=== PATIENT | male | born 1945 | race Caucasian/White ===

== ENCOUNTER 2021-12-07 08:56 | Emergency (ER) | payer MEDICARE, OTHER, SELFPAY ==
[2021-12-07 09:06] VITALS: BP 150/92; PULSE 69; RESP 16; TEMP 36.4; O2SAT 94; BMI 25.0
[2021-12-07 09:16] VITALS: BP 188/119; PULSE 69; RESP 16; O2SAT 93
--- NOTE | 2021-12-07 09:29 | ECG_ITS ---
[facility] Test Date: 2021-12-07 Pat Name: Reid Mcbride Department: Room: Gender: Male [employer]r: : 1945 Requested By: Georgi Lara Order Number: [id number] Norma MD: Rey Joseph M.D. Measurements Intervals [place] Rate: P: ND: QRS: QRSD: T: QT: QTc: Interpretive Statements SINUS RHYTHM No previous ECG available for comparison Electronically Signed On 12-09-2021 15:49:45 CDT by Rey Joseph M.D. [id number]
[2021-12-07 09:32] LABS: Glucose Point of Care 102 mg/dL (70-110)
[2021-12-07 09:40] LABS: Basophils # 0.1 10^3/uL (0.0-0.1); Basophils % 0.6 %; Eosinophils # 0.1 10^3/uL (0.0-0.8); Eosinophils % 1.4 %; Hematocrit 51.4 % (42.0-52.0); Hemoglobin 17.3 g/dL (11.7-16.6); Lymphocytes # 1.8 10^3/uL (0.8-4.8); Lymphocytes % 17.7 %; Mean Corpuscular HGB Conc 33.7 g/dL (30.0-36.0); Mean Corpuscular Hemoglobin 30.9 pg (28.0-34.0); Mean Corpuscular Volume 91.9 fl (80-94); Mean Platelet Volume 10.5 fL (7.4-10.4); Monocytes # 0.9 10^3/uL (0.2-0.9); Monocytes % 9.4 %; Neutrophils # 7.09 10^3/uL (1.8-7.7); Neutrophils % 70.6 %; Nucleated Red Blood Cells % 0 %; Platelet Count 515 10^3/cmm (130-400); Red Blood Count 5.59 10^6/uL (4.1-5.3); Red Cell Distribution Width 14.3 % (12.1-15.1)
[2021-12-07 09:52] LABS: Alanine Aminotransferase 16 U/L (0-41); Albumin Level 4.3 g/dL (3.5-5.2); Alkaline Phosphatase 109 IU/L (40-130); Anion Gap 13.4 (5-19); Aspartate Amino Transferase 22 U/L (0-40); Blood Urea Nitrogen 15 mg/dL (8-23); Calcium 9.5 mg/dL (8.5-10.5); Carbon Dioxide 25 mmol/L (22-29); Chloride 101 mmol/L (98-107); Globulin 3.2 g/dL (1.3-4.6); Glucose 108 mg/dL (65-115); Osmolality Calculated 281 mOsm/kg (285-295); Potassium 4.4 mmol/L (3.5-5.1); Sodium 135 mmol/L (136-145); Total Bilirubin 0.5 mg/dL (0.15-1.2); Total Protein 7.5 g/dL (6.6-8.7)
[2021-12-07 09:54] VITALS: BP 167/111; PULSE 69; O2SAT 93
--- NOTE | 2021-12-07 10:06 | W.ED.NEUROSD ---
HPI - Neuro Symptoms/Deficit General: Chief Complaint: Neuro Symptoms/Deficit Stated Complaint: heads jerking to the left side alot Time Seen by Provider: 12/07/21 09:02 Source: patient Mode of arrival: ambulatory Limitations: no limitations History of Present Illness: 76-year-old male presents emergency room complaining of a twitch in his neck. It began this morning. He does take aripiprazole took 20 mg this morning which is usual dose she has been on that since somewhere around 2019. He uses it for anxiety along with Ativan. He denies any chest pain denies any shortness of breath is not had any loss of consciousness. Onset (ago): hour(s) Timing confirmed by: spouse Location: other (Neck) History of same: No Severity: moderate Quality: intermittent Relieving factors: none Exacerbating factors: none Context: sudden onset Associated symptoms: Reports malaise; Deny chest pain, cough, diaphoresis, fevers/chills, headache(s), anorexia, nausea, seizures, short of breath, syncope, tingling, vomiting or weakness Treatments Prior to Arrival: none Review of Systems Const: Reports: malaise; Denies: diaphoresis ENMT: Denies: throat pain, ear or mastoid pain, nasal discharge or nasal congestion Card: Denies: chest pain or syncope Resp: Denies: dyspnea, productive cough or non-productive cough GI: Denies: nausea or vomiting : Denies: flank pain, dysuria, urinary frequency or urinary urgency Skin/Breast: Denies: rash or pruritus Neuro: Denies: headache(s) NIH stroke score NIHSS: Level Of Consciousness - 1a: 0 Level Of Consciousness Questions - 1b: Both Correct Level Of Consciousness Commands - 1c: Both Correct Best Gaze - 2: Normal Visual [place] - 3: No Visual Loss Facial Palsy - 4: Normal Motor Arm Right - 5: No Drift Motor Arm Left - 5: No Drift Motor Leg Right - 6: No Drift Motor Leg Left - 6: No Drift Limb Ataxia - 7: Absent Sensory - 8: Normal Best Language - 9: No Aphasia Dysarthia - 10: Normal Extinction And Inattention - 11: 0 Score: Total Score: 0 Physical Exam Const: COMMON NORMALS: no acute distress GENERAL APPEARANCE: cooperative and comfortable ORIENTATION/CONSCIOUSNESS: Yes awake HENMT: COMMON NORMALS: normocephalic, atraumatic and hearing grossly normal bilaterally HEAD & SCALP: normocephalic and atraumatic Neck/C-Spine: COMMON NORMALS: full ROM, no lymphadenopathy, supple and no JVD Lymph: LYMPHATIC: no lymphadenopathy noted and no lymphedema noted Resp: COMMON NORMALS: normal respiratory effort, No retractions, No use of accessory muscles and clear to auscultation bilaterally AUSCULTATION: clear to auscultation bilaterally Cardio: COMMON NORMALS: no JVD, regular rate, regular rhythm and No murmurs present (Cardio) RATE: regular rate RHYTHM: regular rhythm GI: COMMON NORMALS: Soft to palpation and No hepatosplenomegaly present AUSCULTATION: Yes normoactive bowel sounds PALPATION: Yes Soft to palpation, No Tenderness to palpation present (GI), No Guarding due to palpation present (GI) and Yes No hepatosplenomegaly present Extremity: COMMON NORMALS: normal to inspection, capillary refill normal, no clubbing, cyanosis or edema, no calf tenderness and no pedal edema Skin: COMMON NORMALS: no rashes or lesions noted GENERAL SKIN EXAM: no rashes or lesions noted Course Vital Signs: Vital signs: Vital Signs Temperature 97.6 F 12/07/21 09:06 Pulse Rate 70 12/07/21 11:46 Respiratory Rate 16 12/07/21 09:16 Blood Pressure 163/109 12/07/21 11:46 Pulse Oximetry 91 12/07/21 11:46 MDM - Neuro Symptoms/Deficit Medical Decision Making Initially patient described what sounded like a spastic torticollis that was intermittent. However he began developing symptoms again after he been here for a time and I witnessed him he looks like he is having extrapyramidal side effects. Is a diaphragmatic spasm along with neck twitching into the left. Symptoms are relatively mild but obviously very annoying. Think it is from the aripiprazole. He had some relief with initial shot of Cogentin we did need to redose him. These may persist for some time after he is off the medication. Talk to his primary care doctor and he did not think that he has been taking it all that regularly and felt comfortable just stopping it immediately. I initially discussed with the patient about tapering it. Dr. Miranda said the patient does have access to Ativan to use as needed for anxiety issues. We will give him Cogentin to use as needed and then he can supplement that with Benadryl if he has recurrent symptoms did warn the patient this may last for some time after he stops the aripiprazole. Medical Records I reviewed the patient's medical records. Lab Data I reviewed the patient's lab results. : 12/07/21 07:20 12/07/21 07:20 Laboratory Results WBC 10.0 10^3/uL (4.0-10.0) 12/07/21 07:20 RBC 5.59 10^6/uL (4.1-5.3) H 12/07/21 07:20 Hgb 17.3 g/dL (11.7-16.6) H 12/07/21 07:20 Hct 51.4 % (42.0-52.0) 12/07/21 07:20 MCV 91.9 fl (80-94) 12/07/21 07:20 MCH 30.9 pg (28.0-34.0) 12/07/21 07:20 MCHC 33.7 g/dL (30.0-36.0) 12/07/21 07:20 RDW 14.3 % (12.1-15.1) 12/07/21 07:20 Plt Count 515 10^3/cmm (130-400) H 12/07/21 07:20 MPV 10.5 fL (7.4-10.4) H 12/07/21 07:20 Neut % (Auto) 70.6 % 12/07/21 07:20 Lymph % (Auto) 17.7 % 12/07/21 07:20 [place] % (Auto) 9.4 % 12/07/21 07:20 Eos % (Auto) 1.4 % 12/07/21 07:20 Baso % (Auto) 0.6 % 12/07/21 07:20 Neut # (Auto) 7.09 10^3/uL (1.8-7.7) 12/07/21 07:20 Lymph # (Auto) 1.8 10^3/uL (0.8-4.8) 12/07/21 07:20 [place] # (Auto) 0.9 10^3/uL (0.2-0.9) 12/07/21 07:20 Eos # (Auto) 0.1 10^3/uL (0.0-0.8) 12/07/21 07:20 Baso # (Auto) 0.1 10^3/uL (0.0-0.1) 12/07/21 07:20 Nucleated RBC % (auto) 0 % 12/07/21 07:20 Nucleated RBCs # 0.0 /100WBC 12/07/21 07:20 Sodium 135 mmol/L (136-145) L 12/07/21 07:20 Potassium 4.4 mmol/L (3.5-5.1) 12/07/21 07:20 Chloride 101 mmol/L (98-107) 12/07/21 07:20 Carbon Dioxide 25 mmol/L (22-29) 12/07/21 07:20 Anion Gap 13.4 (5-19) 12/07/21 07:20 BUN 15 mg/dL (8-23) 12/07/21 07:20 Creatinine 1.0 mg/dL (0.7-1.2) 12/07/21 07:20 GFR Calculation Not Reportable 12/07/21 07:20 Glucose 108 mg/dL (65-115) 12/07/21 07:20 POC Glucose 102 mg/dL (70-110) 12/07/21 09:12 Calculated Osmolality 281 mOsm/kg (285-295) L 12/07/21 07:20 Calcium 9.5 mg/dL (8.5-10.5) 12/07/21 07:20 Total Bilirubin 0.5 mg/dL (0.15-1.2) 12/07/21 07:20 AST 22 U/L (0-40) 12/07/21 07:20 ALT 16 U/L (0-41) 12/07/21 07:20 Alkaline Phosphatase 109 IU/L (40-130) 12/07/21 07:20 Total Protein 7.5 g/dL (6.6-8.7) 12/07/21 07:20 Albumin 4.3 g/dL (3.5-5.2) 12/07/21 07:20 Globulin 3.2 g/dL (1.3-4.6) 12/07/21 07:20 Discharge Plan Discharge Patient Disposition: Home Clinical Impression: Extrapyramidal reaction Condition: Stable Prescriptions: New benztropine 2 mg tablet 1 mg PO QID PRN (Reason: extrapyramidal symptoms) Qty: 30 0RF Discontinued aripiprazole 20 mg tablet 20 mg PO DAILY 0RF No Action amitriptyline 25 mg tablet 25 - 100 mg PO BEDTIME 0RF lorazepam 0.5 mg tablet 0.5 mg PO DAILY 0RF brimonidine 0.2 % drops 1 drp ophthalmic (eye) BID 0RF Rx Instructions: instill 1 drop both eyes twice a day timolol maleate 0.5 % drops 1 drp ophthalmic (eye) BID 0RF Rx Instructions: instill 1 drop into each eye twice a day dutasteride 0.5 mg capsule 0.5 mg PO DAILY 0RF Men's Daily 0.4-600 mg-mcg Capsule 1 cap PO DAILY 0RF Discharge Orders: Discharge ED (Routine); Ordered 12/07/21 Ordered By: Georgi Arthur Referrals: Clayton Miranda MD [Family Provider] - Discharge Diet: Usual diet Discharge Activity: Resume usual activity Patient Instructions: Opioid Safety Activity Restrictions/Additional Instructions: Take Cogentin 1 every 6 hours as needed for these symptoms. You can also take Benadryl 25 mg every 4-6 hours as needed if symptoms are persisting after the Cogentin. Follow-up with Dr. Miranda on Friday Coding Level of Care Code ED Rn Acute Care for Michaela Alfredo
[2021-12-07] MEDS: benztropine 1 mg/mL SDV 2 mL IM ×2 (10:17→12:15)
[2021-12-07 10:32] VITALS: BP 199/116; PULSE 66; O2SAT 93
[2021-12-07 11:46] VITALS: BP 163/109; PULSE 70; O2SAT 91
[2021-12-07] MEDS: diphenhydrAMINE 25 mg Capsule PO (12:15)
[2021-12-07 12:20] VITALS: BP 184/117; PULSE 66; RESP 18; O2SAT 93
== END 2021-12-07 12:20 | disposition home or self-care (01) ==
PROVIDERS: Emergency Provider Family Medicine; Family Provider Family Medicine
DX: G25.9 Extrapyramidal and movement disorder, unspecified (principal)
CPT/HCPCS: 36416; 80053; 82962; 85025; 93005; 96372; 99283; J0515

== ENCOUNTER 2022-01-21 11:17 | Emergency (ER) | payer MEDICARE, OTHER, SELFPAY ==
[2022-01-21 11:19] VITALS: BP 147/101; PULSE 82; RESP 18; TEMP 36.2; O2SAT 96; BMI 25.0
--- NOTE | 2022-01-21 11:21 | CT_ITS ---
WS: [id number] CT HEAD NONCONTRAST HISTORY: stroke like symptoms TECHNIQUE: Contiguous axial imaging performed through the brain in 2.5 mm imaging. Bone and soft tiss ue windows. Sagittal and coronal reformats reviewed. All CT scans at [facility] use at least one of these dose optimization techniques: automated exposure control; mA and/or kV adjustment per pa tient size (includes targeted exams where dose is matched to clinical indication); or iterative recon struction. DLP: 1346.64 mGy.cm COMPARISON: 07/25/2011 No acute intracranial hemorrhage, midline shift or mass effect. Mild atrophy and chronic microvascular ischemic disease. Lacunar infarct in the LEFT lateral derick. Mild bilateral cerebellar atrophy. Ventricles: Normal size with no hydrocephalus. No inferior displacement of cerebellar tonsils. Again noted is a expansile bone lesion at the LEFT sk ull base with splaying of the lateral pterygoid plates. 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 Previously described in 2011 with no progression. Paranasal sinuses: As visualized are clear. Mastoid air cells: Well pneumatized. Calvarium and scalp: No calvarial fracture. CT/CT head wo con* [id number] IMPRESSION: 1. No acute intracranial edema or hemorrhage. 2. Cerebral and cerebellar atrophy with chronic microvascular ischemic changes . 3. Prior lacunar infarct lateral LEFT derick.
--- NOTE | 2022-01-21 11:40 | W.ED.NEUROSD ---
HPI - Neuro Symptoms/Deficit General: Chief Complaint: Neuro Symptoms/Deficit Stated Complaint: stoke symptoms Time Seen by Provider: 01/21/22 11:40 History of Present Illness: Mr. Mcbride is a 77-year-old gentleman who presents to the emergency department due to concern over strokelike symptoms. Symptom onset for current symptoms was he 01/20 at approximately 1800 when the patient was eating dinner. He reported numbness in his left upper extremity and weakness. He had difficulty with coordinated activity. He subsequently had mild waxing and waning of symptoms however overall they have progressed and now has weakness and numbness in the leg as well as well as left-sided facial droop. Over the past few months he has had increasing falls and gait disturbance however nothing this severe. Denies other specific changes in health. Intensity of symptoms is moderate to severe. Course has been worsening. No other specific changes in health, exacerbating, or alleviating factors identified. The patient does not have baseline medical conditions with stroke risk factors. Additionally he has been titrated off of his risperidone and has not taken it for approximately 2 weeks. Onset (ago): hour(s) Time: 18:00 Last Observed Normal: 18:00 Timing confirmed by: family member Location: left face, left arm and left leg History of same: No Severity: severe Quality: weak and numb Relieving factors: none Exacerbating factors: none On Anticoagulants: No Associated symptoms: Reports no associated symptoms Review of Systems General: Reports: 10 or more systems reviewed and unremarkable except in HPI and below Physical Exam Const: COMMON NORMALS: alert GENERAL APPEARANCE: cooperative and well developed HENMT: COMMON NORMALS: normocephalic and atraumatic HEAD & SCALP: normocephalic and atraumatic Eye: COMMON NORMALS: conjunctivae normal CONJUNCTIVA: Yes conjunctivae normal SCLERA: sclerae normal Neck/C-Spine: COMMON NORMALS: supple GENERAL: Yes trachea midline Resp: COMMON NORMALS: normal respiratory effort EFFORT & INSPECTION: Yes able to speak in complete sentences Cardio: COMMON NORMALS: regular rate and regular rhythm RATE: regular rate RHYTHM: regular rhythm GI: COMMON NORMALS: Soft to palpation PALPATION: Yes Soft to palpation and No Tenderness to palpation present (GI) PERCUSSION: normal to percussion Extremity: GENERAL: Yes normal exam except as noted and No edema Neuro: SENSORIUM/ORIENTATION: Yes alert and No Orientation impaired OTHER: Left-sided facial droop upper and lower?mild Left upper and lower extremity effort against gravity however unable to maintain sensory changes left Extinction left Questionable inferior quadrant visual disturbance Waxing and waning mild impairment in mental status Course ED course: - Patient was seen and evaluated by me at bedside - Patient placed on cardiac monitors, IV access obtained - Initial evaluation notable for exam as above, significant neurologic deficits with NIHSS of 8 - Labs and xrays personally interpreted by me. EKG reviewed and shows sinus rhythm with nonspecific ST segment abnormalities. No STEMI. - Labs notable for leukocytosis and hemoconcentration. Metabolic panel without acute derangement to explain symptoms. Urinalysis not concerning for urinary tract infection. Patient does take known lorazepam and urine drug screen positive for benzodiazepines - Imaging notable for no lobar consolidation or pneumothorax on chest x-ray. No acute intracranial hemorrhage identified on CT head. CTA positive for high-grade stenosis with large amount of noncalcified plaque suspected to be embolic thrombus versus dissection identified on CT scan. - Upon serial reexamination after treatment the patient was similar - Based on patient history, evaluation, and testing as interpreted the most likely cause of the patient's condition is ischemic stroke with LVO - Discussed with Dr Streeter of the neurology service at [facility] in [facility] and subsequently Dr. Cruz who accepted the patient as a ED to ED transfer. - The results of ED evaluation were discussed with the patient and his family including plan for transfer emergently due to requirement for level of care not available if discharged to prevent significant worsening/deterioration. - Due to time critical nature of diagnosis including pending intervention patient requires air transport for fastest means available. - Left with flight crew in similar condition. Note: Click bubbles or prepopulated segundo in note writing are used for assistance with data collection and billing and are inherently more limited than narrative and other text portions of this note. Please use narrative for additional clinical history and defer to narrative/free test for any case of contradictory information. If information appears in only free text or click bubble it should be considered present or absent as reported. Please contact note insurance underwriter for clarifications of clinical information or contradictory information. MDM is a brief summary, contradictory or erroneous seeming information should be clarified and full note should be reviewed. Vital Signs: Vital signs: Vital Signs Temperature 97.1 F L 01/21/22 11:19 Pulse Rate 87 01/21/22 15:59 Respiratory Rate 16 01/21/22 15:59 Blood Pressure 176/103 01/21/22 15:59 Pulse Oximetry 94 01/21/22 15:59 MDM - Neuro Symptoms/Deficit Medical Decision Making 77-year-old gentleman without significant past medical history presenting strokelike symptoms starting yesterday evening. Unfortunately while outside tPA window. NIHSS 8. Patient found to have suspected embolic stroke in the right intracranial ICA which correlates with left-sided symptoms. Transferred emergently for possible embolectomy to [facility] in [facility]. Medical Records I reviewed the patient's medical records. Lab Data I reviewed the patient's lab results. : 01/21/22 11:43 01/21/22 11:[address] 01/21/22 11:21 IMPRESSION: 1. No acute intracranial edema or hemorrhage. 2. Cerebral and cerebellar atrophy with chronic microvascular ischemic changes. 3. Prior lacunar infarct lateral LEFT derick. Chest X-Ray 01/21/22 11:47 Impression: Atherosclerosis. Head/Neck CTA 01/21/22 11:47 IMPRESSION: 1. 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 High-grade stenosis was a large amount of noncalcified plaque. Embolic thrombus versus dissection within the differential. 2. There is an additional high-grade stenosis involving the LEFT intracranial ICA at the level of the carotid canal. Stenosis greater than 80%. 3. No aneurysm. 4. Moderate calcified plaque intracranial carotid arteries to the cavernous sinuses. Notified Ra Anthony MD at 01/21/2022 12:51 PM. Laboratory Results WBC 14.6 10^3/uL (4.0-10.0) H 01/21/22 11:43 RBC 5.68 10^6/uL (4.1-5.3) H 01/21/22 11:43 Hgb 17.1 g/dL (11.7-16.6) H 01/21/22 11:43 Hct 50.1 % (42.0-52.0) 01/21/22 11:43 MCV 88.2 fl (80-94) 01/21/22 11:43 MCH 30.1 pg (28.0-34.0) 01/21/22 11:43 MCHC 34.1 g/dL (30.0-36.0) 01/21/22 11:43 RDW 14.9 % (12.1-15.1) 01/21/22 11:43 Plt Count 535 10^3/cmm (130-400) H 01/21/22 11:43 MPV 10.6 fL (7.4-10.4) H 01/21/22 11:43 Neut % (Auto) 76.1 % 01/21/22 11:43 Lymph % (Auto) 13.0 % 01/21/22 11:43 [place] % (Auto) 9.7 % 01/21/22 11:43 Eos % (Auto) 0.4 % 01/21/22 11:43 Baso % (Auto) 0.4 % 01/21/22 11:43 Neut # (Auto) 11.11 10^3/uL (1.8-7.7) H 01/21/22 11:43 Lymph # (Auto) 1.9 10^3/uL (0.8-4.8) 01/21/22 11:43 [place] # (Auto) 1.4 10^3/uL (0.2-0.9) H 01/21/22 11:43 Eos # (Auto) 0.1 10^3/uL (0.0-0.8) 01/21/22 11:43 Baso # (Auto) 0.1 10^3/uL (0.0-0.1) 01/21/22 11:43 Nucleated RBC % (auto) 0 % 01/21/22 11:43 Nucleated RBCs # 0.0 /100WBC 01/21/22 11:43 PT 14.70 SECONDS (12.1-14.9) 01/21/22 11:43 INR 1.12 (0.8-1.2) 01/21/22 11:43 APTT 31.2 SECONDS (23.9-36.7) 01/21/22 11:43 Sodium 139 mmol/L (136-145) 01/21/22 11:43 Potassium 4.3 mmol/L (3.5-5.1) 01/21/22 11:43 Chloride 104 mmol/L (98-107) 01/21/22 11:43 Carbon Dioxide 22 mmol/L (22-29) 01/21/22 11:43 Anion Gap 17.3 (5-19) 01/21/22 11:43 BUN 15 mg/dL (8-23) 01/21/22 11:43 Creatinine 1.2 mg/dL (0.7-1.2) 01/21/22 11:43 GFR Calculation Not Reportable 01/21/22 11:43 Glucose 90 mg/dL (65-115) 01/21/22 11:43 Calculated Osmolality 288 mOsm/kg (285-295) 01/21/22 11:43 Calcium 8.8 mg/dL (8.5-10.5) 01/21/22 11:43 Total Bilirubin 0.5 mg/dL (0.15-1.2) 01/21/22 11:43 AST 24 U/L (0-40) 01/21/22 11:43 ALT 17 U/L (0-41) 01/21/22 11:43 Alkaline Phosphatase 97 IU/L (40-130) 01/21/22 11:43 Troponin T Baseline 15 ng/L (0-15) 01/21/22 11:43 Total Protein 7.2 g/dL (6.6-8.7) 01/21/22 11:43 Albumin 4.2 g/dL (3.5-5.2) 01/21/22 11:43 Globulin 3.0 g/dL (1.3-4.6) 01/21/22 11:43 Urine Color Straw (Yellow) 01/21/22 12:44 Urine Appearance Clear (CLEAR) 01/21/22 12:44 Urine pH 7 (5-7) 01/21/22 12:44 Ur Specific [place] 1.000 (1.005-1.030) L 01/21/22 12:44 Urine Protein Neg (Negative) 01/21/22 12:44 Urine Glucose (UA) Norm (Normal) 01/21/22 12:44 Urine Ketones Negative (Negative) 01/21/22 12:44 Urine Blood Neg (Negative) 01/21/22 12:44 Urine Nitrate Negative (Negative) 01/21/22 12:44 Urine Bilirubin Neg (Negative) 01/21/22 12:44 Urine Urobilinogen Norm mg/dL (Negative) 01/21/22 12:44 Ur Leukocyte Esterase Negative (Negative) 01/21/22 12:44 Urine Opiates Screen Negative ng/mL (Negative) 01/21/22 12:44 Ur Barbiturates Screen Negative ng/mL (Negative) 01/21/22 12:44 Ur Phencyclidine Scrn Negative ng/mL (Negative) 01/21/22 12:44 Ur Amphetamines Screen Negative ng/mL (Negative) 01/21/22 12:44 U Benzodiazepines Scrn Positive ng/mL (Negative) H 01/21/22 12:44 Urine Cocaine Screen Negative ng/mL (Negative) 01/21/22 12:44 U Marijuana (THC) Screen Negative ng/mL (Negative) 01/21/22 12:44 Critical Care Time Critical Care Time: Critical Care Time: Yes Total Critical Care Time: 45 Attestation: Due to a high probability of clinically significant, possibly life threatening deterioration, the patient required my highest level of attention and preparedness to intervene emergently and I personally spent this critical care time directly and personally managing the patient. This critical care time included obtaining a history; examining the patient; pulse oximetry; ordering and review of laboratory and imaging studies; arranging urgent treatment with development of a management plan; evaluation of patient's response to treatment; frequent reassessment; and, discussions with other providers as applicable. It was exclusive of separately billable procedures. Primary system involved is neurovascular Discharge Plan Discharge Patient Disposition: Transfer to ED Clinical Impression: Cerebrovascular accident Condition: Stable Prescriptions: No Action lorazepam 0.5 mg tablet 0.5 mg PO DAILY 0RF brimonidine 0.2 % drops 1 drp ophthalmic (eye) BID 0RF Rx Instructions: instill 1 drop both eyes twice a day timolol maleate 0.5 % drops 1 drp ophthalmic (eye) BID 0RF Rx Instructions: instill 1 drop into each eye twice a day Men's Daily 0.4-600 mg-mcg Capsule 1 cap PO DAILY 0RF risperidone 0.5 mg tablet 0.5 mg PO DAILY 0RF Referrals: Clayton Miranda MD [Family Provider] - Coding Level of Care Code ED Title Manager for Chg Fwd Exam Comprehensive
--- NOTE | 2022-01-21 11:47 | XR_ITS ---
WS: [id number] Portable AP upright chest, 01/21/2022 Clinical Data: stroke like symptoms Comparison: PA and lateral chest, 02/26/2019. Findings: No nodules, masses or effusions are seen. The heart is normal. The pulmonary vascularity is not increased. No pneumonia or pneumothorax is seen. The aortic arch and descending thoracic aorta s how calcification and tortuosity. 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 Monitor l stephanie are on the chest wall. XR/XR chest 1V portable [id number] Impression: Atherosclerosis.
--- NOTE | 2022-01-21 11:47 | CT_ITS ---
WS: [id number] CT ANGIOGRAM CEREBRAL AND CAROTID ARTERIES HISTORY: stroke symptoms, L sided numb/weak TECHNIQUE: CT angiogram is performed of the carotid and cerebral arteries. During arterial injection imaging is obtained from the skull vertex to the aortic arch in 1.25 mm imaging. Coronal and sagittal reformats are submitted. Additional multi planar reformats of the carotid and cerebral arteries are submitted, MIP imaging also reviewed. NASCET criteria utilized. [facility] CT [facility] at [facility] us e at least one of these dose optimization techniques: automated exposure control; mA and/or kV adjust ment per patient size (includes targeted exams where dose is matched to clinical indication); or iter ative reconstruction. CONTRAST: Omnipaque 350; 95 mL IV. DLP: 2389.55 mGy.cm COMPARISON: Noncontrast CT head 01/21/2022. Patient was unable to remain still for this examination. Carotid Angiogram: Right carotid: Common carotid artery: Origin of the RIGHT common carotid artery is poorly visualized due to motion b ut there is no high-grade stenosis evident. No significant amount of thrombus or plaque. Internal carotid artery: In the cervical portion of the RIGHT ICA no stenosis is identified or signif icant plaque. There is a very tiny amount of calcified plaque. External carotid artery: Patent. Left carotid: Common carotid artery: Arises from the base of the innominate. Motion artifact. Internal carotid artery: No plaque or stenosis. External carotid artery: Patent. Right vertebral artery: Unremarkable. Left vertebral artery: Mildly dominant. Patent. Subclavian arteries: No stenosis or significant abnormality. Upper thorax: Normal. Thyroid gland: Normal. Osseous structures: Mild degenerative changes in the cervical spine. CEREBRAL ANGIOGRAM: Intracranial vertebral arteries: Tortuous vertebral arteries but they are intact. Basilar artery: No significant stenosis or occlusion. No aneurysm. Intracranial Internal carotid arteries: Abnormal intracranial RIGHT carotid artery. Beginning at the level of the C1 vertebral body there is dilatation of the carotid artery measuring up to 1.0 cm. Ther e is a small amount of enhancement within the lumen. Contrast enhancement is along the posterior lume n of the artery. Extending over a length of approximately 2.5 cm is a focal area of thrombus with pos sible dissection nearly obstructing the artery. The surface of the enhancing carotid lumen is irregul ar. This is a very high-grade stenosis of greater than 90%. Involves both the petrous and proximal ca vernous portion of the ICA. Distal intracranial carotid artery becomes becomes normal. Mild plaque is calcified through the cavernous segment. There is additional soft plaque and high-grade stenosis involving the LEFT intracranial ICA. There is a short segment area of high-grade stenosis at the carotid canal. Middle cerebral arteries: No significant stenosis or thrombus. Anterior cerebral arteries and ACOM: Dominant LEFT A1 segment. No aneurysm or stenosis. Posterior cerebral arteries and PCOM's: Normal. No significant opacification of the LEFT transverse sinus is probably due to small caliber sinus whic h is a normal variant. The jugular canal is very small on the LEFT. Mastoid air cells: Normal. Paranasal sinuses: Normal. Calvarium: Again noted is expansile lesion at the LEFT skull base which is similar to previous the de scribed and stable. CT/CT angio headneck* [id number] IMPRESSION: 1. 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 High-grade stenosis was a large amount of noncalcified plaque. Embolic thrombus versus di ssection within the differential. 2. There is an additional high-grade stenosis involving the LEFT intracranial ICA at the level of the carotid canal. Stenosis greater than 80%. 3. No aneurysm. 4. Moderate calcified plaque intracranial carotid arteries to the cavernous si nuses. Notified Ra Anthony MD at 01/21/2022 12:51 PM.
--- NOTE | 2022-01-21 11:48 | ECG_ITS ---
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 Measurements Intervals [place] Rate: 80 P: 9 OR: 172 QRS: 9 QRSD: 87 T: 17 QT: 374 QTc: 432 Interpretive Statements SINUS RHYTHM Compared to ECG 12/07/2021 09:24:56 No significant changes Electronically Signed On 01-21-2022 22:05:17 CDT by Rey Joseph M.D. [id number]
[2022-01-21 12:01] LABS: Basophils # 0.1 10^3/uL (0.0-0.1); Basophils % 0.4 %; Eosinophils # 0.1 10^3/uL (0.0-0.8); Eosinophils % 0.4 %; Hematocrit 50.1 % (42.0-52.0); Hemoglobin 17.1 g/dL (11.7-16.6); Lymphocytes # 1.9 10^3/uL (0.8-4.8); Mean Corpuscular HGB Conc 34.1 g/dL (30.0-36.0); Mean Corpuscular Hemoglobin 30.1 pg (28.0-34.0); Mean Corpuscular Volume 88.2 fl (80-94); Mean Platelet Volume 10.6 fL (7.4-10.4); Monocytes # 1.4 10^3/uL (0.2-0.9); Monocytes % 9.7 %; Neutrophils # 11.11 10^3/uL (1.8-7.7); Neutrophils % 76.1 %; Nucleated Red Blood Cells % 0 %; Platelet Count 535 10^3/cmm (130-400); Red Blood Count 5.68 10^6/uL (4.1-5.3); Red Cell Distribution Width 14.9 % (12.1-15.1); White Blood Count 14.6 10^3/uL (4.0-10.0)
[2022-01-21 12:11] LABS: INR 1.12 (0.8-1.2); Partial Thromboplastin Time 31.2 SECONDS (23.9-36.7)
[2022-01-21 12:13] LABS: Troponin(5th) Baseline 15 ng/L (0-15)
[2022-01-21 12:16] LABS: Alanine Aminotransferase 17 U/L (0-41); Albumin Level 4.2 g/dL (3.5-5.2); Alkaline Phosphatase 97 IU/L (40-130); Blood Urea Nitrogen 15 mg/dL (8-23); Calcium 8.8 mg/dL (8.5-10.5); Carbon Dioxide 22 mmol/L (22-29); Chloride 104 mmol/L (98-107); Glucose 90 mg/dL (65-115); Osmolality Calculated 288 mOsm/kg (285-295); Sodium 139 mmol/L (136-145); Total Bilirubin 0.5 mg/dL (0.15-1.2); Total Protein 7.2 g/dL (6.6-8.7)
[2022-01-21] MEDS: iohexol 350 mg/mL 100 mL Btl IV (12:29)
[2022-01-21 12:59] LABS: Anion Gap 17.3 (5-19); Potassium 4.3 mmol/L (3.5-5.1)
[2022-01-21 13:00] LABS: Aspartate Amino Transferase 24 U/L (0-40)
[2022-01-21 13:30] VITALS: BP 176/103; PULSE 87; RESP 16; O2SAT 94
[2022-01-21 13:36] LABS: Add Urine Microscopic? NO; Charge for UA Resulting for Rev
[2022-01-21 13:42] LABS: Bilirubin Urine Neg (Negative); Blood Urine Neg (Negative); Glucose Urine UA Norm (Normal); Ketones Urine Negative (Negative); Leukocyte Esterase Urine Negative (Negative); Nitrate Urine Negative (Negative); Protein Urine Neg (Negative); Urine Appearance Clear (CLEAR); Urine Color Straw (Yellow); Urobilinogen Urine Norm (Negative); pH Urine 7 (5-7)
[2022-01-21 13:51] LABS: Amphetamines Screen Urine Negative (Negative); Barbiturates Screen Urine Negative (Negative); Benzodiazepines Screen Urine Positive (Negative); Cocaine Screen Urine Negative (Negative); Opiate Screen Urine Negative (Negative); PCP Screen Urine Negative (Negative); THC Screen Urine Negative (Negative)
[2022-01-21 15:59] VITALS: BP 176/103; PULSE 87; RESP 16; O2SAT 94
== END 2022-01-21 13:01 ==
PROVIDERS: Emergency Provider Emergency Medicine; Family Provider Family Medicine
DX: I63.411 Cerebral infarction due to embolism of right middle cerebral artery (principal); R29.810 Facial weakness; R29.708 NIHSS score 8
CPT/HCPCS: 51702; 70450; 70496; 70498; 71045; 80053; 80306; 81003; 84484; 85025; 85610; 85730; 93005; 99283; Q9967

== ENCOUNTER 2022-02-03 22:53 | Emergency (ER) | payer MEDICARE, OTHER, SELFPAY ==
[2022-02-03 22:57] VITALS: BP 175/107; PULSE 69; RESP 18; TEMP 36.9; O2SAT 92; BMI 25.0
--- NOTE | 2022-02-03 22:57 | ED_ITS ---
HPI - Fall General: Chief Complaint: Extremity Injury, Upper Stated Complaint: FALL Time Seen by Provider: 02/03/22 22:57 History of Present Illness: 77-year-old male patient comes in today for evaluation after a fall. Patient approximately 2 weeks ago had a stroke and has some left-sided weakness. Tonight patient was in the bathroom and had got up from the toilet states he felt like he lost his balance and then fell to the ground. Patient injured his left forearm. Patient denies any other significant injury. Patient did report that he hit his head but did not lose consciousness. Patient recalls event without any difficulty. MD complaint: fall Onset (ago): minute(s) Fall from: standing Fall witnessed: no Place fall occurred: home Loss of consciousness: None Prolonged down time: no Symptoms prior to fall: none Context: tripped/slipped Location of injury - extremities: Left: forearm Severity: mild Associated symptoms-after fall: Denies chest pain Review of Systems General: Reports: 10 or more systems reviewed and unremarkable except in HPI and below Const: Denies: fever(s) Eyes: Denies: change in vision Card: Denies: chest pain Resp: Denies: dyspnea : Denies: difficulty urinating Musc: Reports: extremity pain Skin/Breast: Denies: rash or new lesions Neuro: Reports: weakness in extremities Physical Exam Const: COMMON NORMALS: alert HENMT: COMMON NORMALS: atraumatic HEAD & SCALP: atraumatic Eye: COMMON NORMALS: Equal, round and reactive pupils present and EOMs intact bilaterally PUPIL: Yes Equal, round and reactive pupils present Neck/C-Spine: COMMON NORMALS: full ROM Chest: COMMONS NORMALS: normal palpation of entire chest wall Resp: COMMON NORMALS: normal respiratory effort and clear to auscultation bilaterally AUSCULTATION: clear to auscultation bilaterally Cardio: COMMON NORMALS: regular rate and regular rhythm RATE: regular rate RHYTHM: regular rhythm GI: COMMON NORMALS: Soft to palpation and non-tender PALPATION: Yes Soft to palpation Back/Pelvis: COMMON NORMALS: thoracic and lumbar spine normal to inspection Extremity: LEFT UPPER EXTREMITY: Yes lower arm (Distal tenderness, swelling) Left lower arm: Yes inspection, Yes palpation and Yes neurovascular exam Neuro: SENSORIUM/ORIENTATION: Yes alert Skin: COMMON NORMALS: no rashes or lesions noted GENERAL SKIN EXAM: no rashes or lesions noted Course Vital Signs: Vital signs: Vital Signs Temperature 98.4 F 02/03/22 22:57 Pulse Rate 66 02/03/22 23:40 Respiratory Rate 16 02/03/22 23:40 Blood Pressure 159/91 02/03/22 23:40 Pulse Oximetry 92 02/03/22 23:40 MDM - Fall Medical Decision Making 77-year-old male patient lost his balance and fell on the floor upon getting up from the toilet. Patient denies any nausea vomiting or dizziness. Patient does have a history of a recent CVA which caused some weakness on the left side. Pat ient responded appropriately to questions. There was concern for some deformity in the left forearm. On exam there is no obvious deformity but there is a contusion. Pulses are intact. Differential diagnosis includes but not limited to fracture, intracranial bleeding, electrolyte imbalance. Laboratory values were unremarkable except patient does have some elevation in his platelets at 757, CMP was unremarkable. CT of the head was unchanged from prior exams. Forearm x-ray was negative for any fractures. Elastic bandage to the forearm for swelling and contusion. Patient was given 15 mg of Toradol IV for his pain. Patient was recommended to follow-up with primary care for further instruction. Son was in the room and reported understanding. Lab Data : 02/03/22 23:11 02/03/22 23:11 Radiology Impressions Forearm X-Ray 02/03/22 23: IMPRESSION: No acute findings. Head CT 02/03/22 23:01 IMPRESSION: 1. Negative for intracranial hemorrhage or mass effect. 2. Left skull base low-density expansile lesion incompletely visualized, has been previously described, a MRI could further evaluate this nonemergently as clinically indicated. Laboratory Results WBC 13.9 10^3/uL (4.0-10.0) H 02/03/22 23:11 RBC 4.78 10^6/uL (4.1-5.3) 02/03/22 23:11 Hgb 14.5 g/dL (11.7-16.6) 02/03/22 23:11 Hct 43.7 % (42.0-52.0) 02/03/22 23:11 MCV 91.4 fl (80-94) 02/03/22 23:11 MCH 30.3 pg (28.0-34.0) 02/03/22 23:11 MCHC 33.2 g/dL (30.0-36.0) 02/03/22 23:11 RDW 15.5 % (12.1-15.1) H 02/03/22 23:11 Plt Count 757 10^3/cmm (130-400) H 02/03/22 23:11 MPV 10.3 fL (7.4-10.4) 02/03/22 23:11 Neut % (Auto) 71.3 % 02/03/22 23:11 Lymph % (Auto) 15.3 % 02/03/22 23:11 Nicholas % (Auto) 9.1 % 02/03/22 23:11 Eos % (Auto) 2.9 % 02/03/22 23:11 Baso % (Auto) 0.4 % 02/03/22 23:11 Neut # (Auto) 9.94 10^3/uL (1.8-7.7) H 02/03/22 23:11 Lymph # (Auto) 2.1 10^3/uL (0.8-4.8) 02/03/22 23:11 Nicholas # (Auto) 1.3 10^3/uL (0.2-0.9) H 02/03/22 23:11 Eos # (Auto) 0.4 10^3/uL (0.0-0.8) 02/03/22 23:11 Baso # (Auto) 0.1 10^3/uL (0.0-0.1) 02/03/22 23:11 Nucleated RBC % (auto) 0 % 02/03/22 23:11 Nucleated RBCs # 0.0 /100WBC 02/03/22 23:11 Sodium 139 mmol/L (136-145) 02/03/22 23:11 Potassium 3.8 mmol/L (3.5-5.1) 02/03/22 23:11 Chloride 104 mmol/L (98-107) 02/03/22 23:11 Carbon Dioxide 24 mmol/L (22-29) 02/03/22 23:11 Anion Gap 14.8 (5-19) 02/03/22 23:11 BUN 15 mg/dL (8-23) 02/03/22 23:11 Creatinine 0.8 mg/dL (0.7-1.2) 02/03/22 23:11 GFR Calculation Not Reportable 02/03/22 23:11 Glucose 104 mg/dL (65-115) 02/03/22 23:11 Calculated Osmolality 289 mOsm/kg (285-295) 02/03/22 23:11 Calcium 8.9 mg/dL (8.5-10.5) 02/03/22 23:11 Total Bilirubin 0.2 mg/dL (0.15-1.2) 02/03/22 23:11 AST 20 U/L (0-40) 02/03/22 23:11 ALT 17 U/L (0-41) 02/03/22 23:11 Alkaline Phosphatase 114 IU/L (40-130) 02/03/22 23:11 Total Protein 6.8 g/dL (6.6-8.7) 02/03/22 23:11 Albumin 3.4 g/dL (3.5-5.2) L 02/03/22 23:11 Globulin 3.4 g/dL (1.3-4.6) 02/03/22 23:11 Discharge Plan Discharge Patient Disposition: Home Clinical Impression: Contusion, forearm Fall Qualifiers: Encounter type: initial encounter Qualified Code(s): W19.XXXA - Unspecified fall, initial encounter Head injury Qualifiers: Encounter type: initial encounter Qualified Code(s): S09.90XA - Unspecified injury of head, initial encounter Condition: Stable Prescriptions: No Action lorazepam 0.5 mg tablet 0.5 mg PO DAILY 0RF brimonidine 0.2 % drops 1 drp ophthalmic (eye) BID 0RF Rx Instructions: instill 1 drop both eyes twice a day timolol maleate 0.5 % drops 1 drp ophthalmic (eye) BID 0RF Rx Instructions: instill 1 drop into each eye twice a day Men's Daily 0.4-600 mg-mcg Capsule 1 cap PO DAILY 0RF risperidone 0.5 mg tablet 0.5 mg PO DAILY 0RF Discharge Orders: Discharge ED (Routine); Ordered 02/04/22 Ordered By: Alli Gregory Referrals: Clayton Miranda MD [Staff Physician] - Discharge Diet: Usual diet Discharge Activity: Increase activity as tolerated Patient Instructions: Contusion in Adults (ED) Activity Restrictions/Additional Instructions: Activity as tolerated. Gentle stretching and range of motion exercises. Use ice or heat to the areas for pain control. Use acetaminophen as needed for pain. Follow-up with primary care as needed. Return to ER for new concerns. Coding Level of Care Code ED Chemist Steroids for Michaela Alfredo Exam Comprehensive
--- NOTE | 2022-02-03 23:01 | CTR_ITS ---
PROCEDURE INFORMATION: Exam: CT Head Without Contrast Exam date and time: 02/03/2022 11:31 PM Age: 77 years old Clinical indication: Injury or trauma; Fall; Blunt trauma (contusions or hematomas); Without loss of consciousness; Patient HX: Stroke 2 weeks ago fell tonight in bathroom hitting L side of head denies loc TECHNIQUE: Imaging protocol: Computed tomography of the head without contrast. Radiation optimization: All CT scans at this facility use at least one of these dose optimization techniques: automated exposure control; mA and/or kV adjustment per patient size (includes targeted exams where dose is matched to clinical indication); or iterative reconstruction. COMPARISON: No relevant prior studies available. RADIATION DOSE METRICS: Total DLP (mGy-cm): 1015.73 FINDINGS: Brain: Normal. No hemorrhage. Unremarkable white matter. No mass effect. Cerebral ventricles: No ventriculomegaly. Paranasal sinuses: Visualized sinuses are unremarkable. No fluid levels. Mastoid air cells: Visualized mastoid air cells are well aerated. Bones/joints: Left skull base low-density expansile lesion incompletely visualized, has been previously described, a MRI could further evaluate this nonemergently as clinically indicated. Soft tissues: Unremarkable. CT/CT head wo con* [id number] IMPRESSION: 1. Negative for intracranial hemorrhage or mass effect. 2. Left skull base low-density expansile lesion incompletely visualized, has been previously described, a MRI could further evaluate this nonemergently as clinically indicated.
--- NOTE | 2022-02-03 23:01 | XRR_ITS ---
PROCEDURE INFORMATION: Exam: XR Left Forearm Exam date and time: 02/03/2022 11:21 PM Age: 77 years old Clinical indication: Injury or trauma; Fall; Blunt trauma (contusions or hematomas); Arm, lower; Left; Additional info: Fall injury TECHNIQUE: Imaging protocol: XR Left forearm. Views: 2 views. COMPARISON: No relevant prior studies available. FINDINGS: Bones/joints: Normal. Soft tissues: Normal. XR/XR forearm LT 2V [id number] IMPRESSION: No acute findings.
[2022-02-03 23:26] LABS: Basophils # 0.1 10^3/uL (0.0-0.1); Basophils % 0.4 %; Eosinophils # 0.4 10^3/uL (0.0-0.8); Eosinophils % 2.9 %; Hematocrit 43.7 % (42.0-52.0); Hemoglobin 14.5 g/dL (11.7-16.6); Lymphocytes # 2.1 10^3/uL (0.8-4.8); Lymphocytes % 15.3 %; Mean Corpuscular HGB Conc 33.2 g/dL (30.0-36.0); Mean Corpuscular Hemoglobin 30.3 pg (28.0-34.0); Mean Corpuscular Volume 91.4 fl (80-94); Mean Platelet Volume 10.3 fL (7.4-10.4); Monocytes # 1.3 10^3/uL (0.2-0.9); Monocytes % 9.1 %; Neutrophils # 9.94 10^3/uL (1.8-7.7); Neutrophils % 71.3 %; Nucleated Red Blood Cells % 0 %; Platelet Count 757 10^3/cmm (130-400); Red Blood Count 4.78 10^6/uL (4.1-5.3); Red Cell Distribution Width 15.5 % (12.1-15.1); White Blood Count 13.9 10^3/uL (4.0-10.0)
[2022-02-03] MEDS: ketorolac 30 mg/mL INJ 15 MG IVP (23:35)
[2022-02-03 23:40] VITALS: BP 159/91; PULSE 66; RESP 16; O2SAT 92
[2022-02-03 23:43] LABS: Alanine Aminotransferase 17 U/L (0-41); Albumin Level 3.4 g/dL (3.5-5.2); Alkaline Phosphatase 114 IU/L (40-130); Anion Gap 14.8 (5-19); Aspartate Amino Transferase 20 U/L (0-40); Blood Urea Nitrogen 15 mg/dL (8-23); Calcium 8.9 mg/dL (8.5-10.5); Carbon Dioxide 24 mmol/L (22-29); Chloride 104 mmol/L (98-107); Creatinine Clr Calc Pharmacy 76.3991; Globulin 3.4 g/dL (1.3-4.6); Glucose 104 mg/dL (65-115); Osmolality Calculated 289 mOsm/kg (285-295); Potassium 3.8 mmol/L (3.5-5.1); Sodium 139 mmol/L (136-145); Total Bilirubin 0.2 mg/dL (0.15-1.2); Total Protein 6.8 g/dL (6.6-8.7)
[2022-02-04 01:28] VITALS: PULSE 78; RESP 16; O2SAT 94
== END 2022-02-04 01:29 | disposition home or self-care (01) ==
PROVIDERS: Emergency Provider Nurse Practitioner Family
DX: S50.12XA Contusion of left forearm, initial encounter (principal); W18.30XA Fall on same level, unspecified, initial encounter; S09.90XA Unspecified injury of head, initial encounter
CPT/HCPCS: 70450; 73090; 80053; 85025; 96374; 99284; J1885

== ENCOUNTER 2022-02-19 08:16 | Outpatient (RCR) | payer MEDICARE, OTHER, SELFPAY | END 2022-02-26 23:59 | disposition home or self-care (01) | LOC: SPO 08:16 | PROVIDERS: Referring Provider Internal Medicine; Visit Provider Internal Medicine | DX: I69.30 Unspecified sequelae of cerebral infarction (principal); R13.12 Dysphagia, oropharyngeal phase; G20 Parkinson's disease | CPT/HCPCS: 97110; 97112; 97140; 97162; 97166 ==

== ENCOUNTER 2022-02-27 06:00 | Outpatient (RCR) | payer MEDICARE, OTHER, SELFPAY | END 2022-03-28 23:59 | disposition home or self-care (01) | LOC: SPO 06:00 | PROVIDERS: Referring Provider Internal Medicine; Visit Provider Internal Medicine | DX: I63.9 Cerebral infarction, unspecified (principal); G81.94 Hemiplegia, unspecified affecting left nondominant side; R13.10 Dysphagia, unspecified; I69.90 Unspecified sequelae of unspecified cerebrovascular disease | CPT/HCPCS: 97110; 97112; 97140 ==

== ENCOUNTER 2022-03-11 07:57 | Outpatient (CLI) | payer MEDICARE, OTHER, SELFPAY ==
--- NOTE | 2022-03-11 | XR_ITS ---
WS: [id number] CHEST 2 VIEWS HISTORY: SHORTNESS OF BREATH COMPARISON: 01/21/2022 Lungs: Hyperinflated lungs. Slight elevation of the LEFT hemidiaphragm with blunting at the LEFT cost ophrenic angle. No pneumonia. Normal vasculature. Cardiac size: Normal. Mediastinum/Aorta: Mild atherosclerosis aorta. Bones: Osteopenia. Prior LEFT femoral head replacement. Increase in thoracic kyphosis. XR/XR chest 2V* [id number] IMPRESSION: 1. Chronic emphysema. No pneumonia. 2. Very minimal blunting of the LEFT costophrenic angle is probably due to fib rosis. 3. Mild atherosclerosis aorta.
== END 2022-03-11 07:58 | disposition home or self-care (01) ==
LOC: RADOUTREAD 03-12 08:01
PROVIDERS: Visit Provider Nurse Practitioner Family
DX: R06.02 Shortness of breath (principal); J43.8 Other emphysema
CPT/HCPCS: 71046; 85378

== ENCOUNTER 2022-03-11 12:45 | Outpatient (CLI) | payer MEDICARE, OTHER, SELFPAY ==
[2022-03-11 13:17] LABS: D Dimer <= 0.27 ug/mIFEU (0-0.59)
== END 2022-03-11 12:46 | disposition home or self-care (01) ==
PROVIDERS: Visit Provider Nurse Practitioner Family
DX: R06.02 Shortness of breath (principal)
CPT/HCPCS: 85378

== ENCOUNTER 2022-03-25 11:31 | Emergency (ER) | payer MEDICARE, OTHER, SELFPAY ==
[2022-03-25 11:43] VITALS: BP 107/71; PULSE 71; RESP 18; TEMP 36.6; O2SAT 96; BMI 25.0
--- NOTE | 2022-03-25 11:47 | XR_ITS ---
WS: [id number] PORTABLE CHEST HISTORY: sob COMPARISON: 03/11/2022 Lungs are clear and well expanded. Very slight blunting of the LEFT costophrenic angle similar to the prior studies. No pneumonia. No effusion. Normal vascularity. Cardiac size: Normal. Mediastinum/Aorta: Mild atherosclerosis aorta. 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 XR/XR chest 1V portable [id number] IMPRESSION: 1. No acute cardiopulmonary disease. 2. Mildly ectatic aorta.
--- NOTE | 2022-03-25 12:02 | W.ED.GENADLT ---
Documented by User: DENNIS Daniels 03/25/22 16:08 HPI - General Adult General: Chief complaint: General Medical Stated complaint: Trouble swollowing, sob Time Seen by Provider: 03/25/22 11:47 History of Present Illness: Patient is a 77-year-old male comes to the ED with trouble swallowing. Past medical history of stroke and was seen here that back on January 21 and he has residual left side weakness. for the past week he has been having feeling that something is stuck in his throat and its a little bit painful and hard for him to swallow. He says symptoms started after his stroke but over the past week its become more of a problem and affecting him daily. He also endorses feeling like the sensation of something in his throat makes it hard for him to breathe as well. He denies having any choking. He is able to keep food and fluids down. Denies any fever, cough, chest pain, shortness of breath or emesis. Voice has changed and become a little more hoarse since onset of symptoms. Associated symptoms: Deny chest pain, dyspnea, headache(s), nausea, rash, palpitations or vomiting Review of Systems Const: Denies: fever(s), chills or fatigue Eyes: Denies: change in vision or eye discomfort ENMT: Reports: odynophagia (Mild pain and some difficulty swallowing.), hoarseness and other (Feels like there is something stuck in his throat); Denies: throat pain, nasal discharge or nasal congestion Card: Denies: chest pain, palpitations, edema, swelling of feet/ankles, dyspnea on exertion or orthopnea Resp: Denies: dyspnea, productive cough or non-productive cough GI: Denies: abdominal pain, nausea, vomiting, diarrhea, constipation or hematochezia : Denies: flank pain, difficulty urinating, dysuria or hematuria Musc: Denies: neck pain, back pain or extremity swelling Skin/Breast: Denies: rash or new lesions Neuro: Denies: headache(s), numbness in extremities or weakness in extremities PFS ED PFSH: Medical History CVA (cerebral vascular accident) Surgical History No pertinent past surgical history Physical Exam Const: COMMON NORMALS: no acute distress, patient oriented x3 and alert GENERAL APPEARANCE: cooperative and comfortable OTHER: Patient's voice does sound a little hoarse and raspy. HENMT: COMMON NORMALS: normocephalic HEAD & SCALP: normocephalic MOUTH: Normal oral and palatal mucosa present THROAT: posterior oropharynx normal and uvula midline OTHER: Patient appears to be handling his secretions well. No excessive secretions noted in mouth Neck/C-Spine: COMMON NORMALS: supple GENERAL: Yes normal visual inspection Resp: COMMON NORMALS: normal respiratory effort, No retractions, No use of accessory muscles and clear to auscultation bilaterally AUSCULTATION: clear to auscultation bilaterally Cardio: COMMON NORMALS: regular rate, regular rhythm, S1 normal heart sound present, S2 normal heart sound present, No gallops present (Cardio), No clicks present (Cardio), No murmurs present (Cardio) and Peripheral pulses 2+ throughout RATE: regular rate RHYTHM: regular rhythm HEART SOUNDS: S1 normal heart sound present and S2 normal heart sound present PERIPHERAL PULSES: Peripheral pulses 2+ throughout GI: COMMON NORMALS: Normal to inspection, nondistended, normoactive bowel sounds present, Soft to palpation, non-tender and no masses PALPATION: Yes Soft to palpation : COMMON NORMALS: Yes no CVA tenderness BLADDER/KIDNEY EXAM: Yes no CVA tenderness Back/Pelvis: COMMON NORMALS: no CVA tenderness Extremity: COMMON NORMALS: normal to inspection Neuro: COMMON NORMALS: patient oriented x3 SENSORIUM/ORIENTATION: Yes alert Skin: GENERAL SKIN EXAM: dry skin Course Vital Signs: Vital signs: Vital Signs Temperature 98.0 F 03/25/22 15:37 Pulse Rate 74 03/25/22 15:37 Respiratory Rate 16 03/25/22 15:37 Blood Pressure 112/70 03/25/22 15:37 Pulse Oximetry 99 03/25/22 15:37 [facility] - General Adult Medical Decision Making Patient is a 77-year-old male comes to the ED with trouble swallowing. Past medical history of stroke and was seen here that back on January 21 and he has residual left side weakness. for the past week he has been having feeling that something is stuck in his throat and its a little bit painful and hard for him to swallow. He says symptoms started after his stroke but over the past week its become more of a problem and affecting him daily. He is still able to keep p.o. food and fluids down and does not have any episodes of emesis. Vitals are stable. Exam of patient is benign. White blood cell count of 16.4 and creatinine of 1.3. Rest of labs are unremarkable. Chest x-ray showed no acute findings. CT of neck showed no neck mass or obstruction of the oropharynx or nasopharynx. No adenopathy noted. 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 Given patient's history and is clear CT scan he likely has dysphagia due to recent stroke. He was also diagnosed with elevated serum creatinine. He was given a liter of IV fluids here in the ED. I discussed patient's case with Dr. Arthur he agreed he is stable for discharge home. He was told to follow-up with his PCP within the next several days to get reevaluated and have his creatinine levels rechecked. Return to ED precautions given. Patient understood and agreed with plan. Lab Data I reviewed the patient's lab results. : 03/25/22 12:05 03/25/22 12:05 Radiology Impressions Chest X-Ray 03/25/22 11:47 IMPRESSION: 1. No acute cardiopulmonary disease. 2. Mildly ectatic aorta. Neck CT 03/25/22 12:11 IMPRESSION: 1. No neck mass or obstruction of the oropharynx or nasopharynx. 2. No adenopathy. 3. 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 Laboratory Results WBC 16.4 10^3/uL (4.0-10.0) H 03/25/22 12:05 RBC 5.31 10^6/uL (4.1-5.3) H 03/25/22 12:05 Hgb 16.0 g/dL (11.7-16.6) 03/25/22 12:05 Hct 45.4 % (42.0-52.0) 03/25/22 12:05 MCV 85.5 fl (80-94) 03/25/22 12:05 MCH 30.1 pg (28.0-34.0) 03/25/22 12:05 MCHC 35.2 g/dL (30.0-36.0) 03/25/22 12:05 RDW 15.6 % (12.1-15.1) H 03/25/22 12:05 Plt Count 599 10^3/cmm (130-400) H 03/25/22 12:05 MPV 10.8 fL (7.4-10.4) H 03/25/22 12:05 Neut % (Auto) 72.6 % 03/25/22 12:05 Lymph % (Auto) 15.9 % 03/25/22 12:05 [place] % (Auto) 8.4 % 03/25/22 12:05 Eos % (Auto) 1.1 % 03/25/22 12:05 Baso % (Auto) 0.4 % 03/25/22 12:05 Neut # (Auto) 11.93 10^3/uL (1.8-7.7) H 03/25/22 12:05 Lymph # (Auto) 2.6 10^3/uL (0.8-4.8) 03/25/22 12:05 [place] # (Auto) 1.4 10^3/uL (0.2-0.9) H 03/25/22 12:05 Eos # (Auto) 0.2 10^3/uL (0.0-0.8) 03/25/22 12:05 Baso # (Auto) 0.1 10^3/uL (0.0-0.1) 03/25/22 12:05 Nucleated RBC % (auto) 0 % 03/25/22 12:05 Nucleated RBCs # 0.0 /100WBC 03/25/22 12:05 Sodium 136 mmol/L (136-145) 03/25/22 12:05 Potassium 3.4 mmol/L (3.5-5.1) L 03/25/22 12:05 Chloride 101 mmol/L (98-107) 03/25/22 12:05 Carbon Dioxide 22 mmol/L (22-29) 03/25/22 12:05 Anion Gap 16.4 (5-19) 03/25/22 12:05 BUN 22 mg/dL (8-23) 03/25/22 12:05 Creatinine 1.3 mg/dL (0.7-1.2) H 03/25/22 12:05 GFR Calculation Not Reportable 03/25/22 12:05 Glucose 139 mg/dL (65-115) H 03/25/22 12:05 Calculated Osmolality 288 mOsm/kg (285-295) 03/25/22 12:05 Calcium 9.0 mg/dL (8.5-10.5) 03/25/22 12:05 Total Bilirubin 0.7 mg/dL (0.15-1.2) 03/25/22 12:05 AST 17 U/L (0-40) 03/25/22 12:05 ALT 14 U/L (0-41) 03/25/22 12:05 Alkaline Phosphatase 115 IU/L (40-130) 03/25/22 12:05 Total Protein 6.5 g/dL (6.6-8.7) L 03/25/22 12:05 Albumin 3.5 g/dL (3.5-5.2) 03/25/22 12:05 Globulin 3.0 g/dL (1.3-4.6) 03/25/22 12:05 TSH 2.66 uIU/mL (0.27-4.20) 03/25/22 12:05 Discharge Plan Discharge Patient Disposition: Home Clinical Impression: Elevated serum creatinine, Dysphagia due to recent stroke Condition: Stable Prescriptions: No Action lorazepam 0.5 mg tablet 0.5 mg PO TID 0RF brimonidine 0.2 % drops 1 drp ophthalmic (eye) BID 0RF Rx Instructions: instill 1 drop both eyes twice a day timolol maleate 0.5 % drops 1 drp ophthalmic (eye) BID 0RF Rx Instructions: instill 1 drop into each eye twice a day Men's Daily 0.4-600 mg-mcg Capsule 1 cap PO DAILY 0RF risperidone 0.5 mg tablet 0.5 mg PO DAILY 0RF atorvastatin 40 mg tablet 40 mg PO DAILY 0RF fluconazole 150 mg tablet 150 mg PO DAILY 0RF clopidogrel 75 mg tablet 75 mg PO DAILY 0RF benztropine 1 mg tablet 1 mg PO BID 0RF gabapentin 100 mg capsule 200 mg PO TID 0RF carbidopa-levodopa 25-100 mg tablet 1 tab PO TID 0RF sertraline 50 mg tablet 50 mg PO DAILY 0RF dutasteride 0.5 mg capsule 0.5 mg PO DAILY 0RF Discharge Orders: Discharge ED (Routine); Ordered 03/25/22 Ordered By: Hari Mujica Discharge Diet: Regular Discharge Activity: Increase activity as tolerated Patient Instructions: Dysphagia (ED) Activity Restrictions/Additional Instructions: Follow-up with medical provider as directed in the next 3 to 5 days for reevaluation. Have PCP recheck your creatinine levels as well at your next visit. Continue taking home medications as prescribed. Return to the ER or your medical provider if condition worsens. Please read and understand discharge instructions. Thank you for choosing [facility] for your healthcare needs today. Please realize this is an emergency room and that we are providing you with a medical screening exam and this may not be complete and all inclusive of all the testing and or work up that you may need to determine your ailment or severity of your illness. It is very important that you follow up as instructed or that you return to the Emergency Department should you have concerns or if your condition changes or worsens in any way. Coding Level of Care Code ED Joy Operator Helper for Chg Fwd Exam Comprehensive Documented by User: Georgi Arthur DO 03/25/22 16:16 HPI - General Adult General: Chief complaint: General Medical Stated complaint: Trouble swollowing, sob Time Seen by Provider: 03/25/22 11:47 [facility] ED PFSH: Medical History CVA (cerebral vascular accident) Surgical History No pertinent past surgical history Course Vital Signs: Vital signs: Vital Signs Temperature 98.0 F 03/25/22 15:37 Pulse Rate 74 03/25/22 15:37 Respiratory Rate 16 03/25/22 15:37 Blood Pressure 112/70 03/25/22 15:37 Pulse Oximetry 99 03/25/22 15:37 MDM - General Adult Medical Decision Making Patient is a 77-year-old male comes to the ED with trouble swallowing. Past medical history of stroke and was seen here that back on January 21 and he has residual left side weakness. for the past week he has been having feeling that something is stuck in his throat and its a little bit painful and hard for him to swallow. He says symptoms started after his stroke but over the past week its become more of a problem and affecting him daily. He is still able to keep p.o. food and fluids down and does not have any episodes of emesis. Vitals are stable. Exam of patient is benign. White blood cell count of 16.4 and creatinine of 1.3. Rest of labs are unremarkable. Chest x-ray showed no acute findings. CT of neck showed no neck mass or obstruction of the oropharynx or nasopharynx. No adenopathy noted. 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 Given patient's history and is clear CT scan he likely has dysphagia due to recent stroke. He was also diagnosed with elevated serum creatinine. He was given a liter of IV fluids here in the ED. I discussed patient's case with Dr. Arthur he agreed he is stable for discharge home. He was told to follow-up with his PCP within the next several days to get reevaluated and have his creatinine levels rechecked. Return to ED precautions given. Patient understood and agreed with plan. Chart reviewed and patient discussed with midlevel. Agree with assessment and plan. Lab Data : 03/25/22 12:05 03/25/22 12:05 Radiology Impressions Chest X-Ray 03/25/22 11:47 IMPRESSION: 1. No acute cardiopulmonary disease. 2. Mildly ectatic aorta. Neck CT 03/25/22 12:11 IMPRESSION: 1. No neck mass or obstruction of the oropharynx or nasopharynx. 2. No adenopathy. 3. 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 Laboratory Results WBC 16.4 10^3/uL (4.0-10.0) H 03/25/22 12:05 RBC 5.31 10^6/uL (4.1-5.3) H 03/25/22 12:05 Hgb 16.0 g/dL (11.7-16.6) 03/25/22 12:05 Hct 45.4 % (42.0-52.0) 03/25/22 12:05 MCV 85.5 fl (80-94) 03/25/22 12:05 MCH 30.1 pg (28.0-34.0) 03/25/22 12:05 MCHC 35.2 g/dL (30.0-36.0) 03/25/22 12:05 RDW 15.6 % (12.1-15.1) H 03/25/22 12:05 Plt Count 599 10^3/cmm (130-400) H 03/25/22 12:05 MPV 10.8 fL (7.4-10.4) H 03/25/22 12:05 Neut % (Auto) 72.6 % 03/25/22 12:05 Lymph % (Auto) 15.9 % 03/25/22 12:05 [place] % (Auto) 8.4 % 03/25/22 12:05 Eos % (Auto) 1.1 % 03/25/22 12:05 Baso % (Auto) 0.4 % 03/25/22 12:05 Neut # (Auto) 11.93 10^3/uL (1.8-7.7) H 03/25/22 12:05 Lymph # (Auto) 2.6 10^3/uL (0.8-4.8) 03/25/22 12:05 [place] # (Auto) 1.4 10^3/uL (0.2-0.9) H 03/25/22 12:05 Eos # (Auto) 0.2 10^3/uL (0.0-0.8) 03/25/22 12:05 Baso # (Auto) 0.1 10^3/uL (0.0-0.1) 03/25/22 12:05 Nucleated RBC % (auto) 0 % 03/25/22 12:05 Nucleated RBCs # 0.0 /100WBC 03/25/22 12:05 Sodium 136 mmol/L (136-145) 03/25/22 12:05 Potassium 3.4 mmol/L (3.5-5.1) L 03/25/22 12:05 Chloride 101 mmol/L (98-107) 03/25/22 12:05 Carbon Dioxide 22 mmol/L (22-29) 03/25/22 12:05 Anion Gap 16.4 (5-19) 03/25/22 12:05 BUN 22 mg/dL (8-23) 03/25/22 12:05 Creatinine 1.3 mg/dL (0.7-1.2) H 03/25/22 12:05 GFR Calculation Not Reportable 03/25/22 12:05 Glucose 139 mg/dL (65-115) H 03/25/22 12:05 Calculated Osmolality 288 mOsm/kg (285-295) 03/25/22 12:05 Calcium 9.0 mg/dL (8.5-10.5) 03/25/22 12:05 Total Bilirubin 0.7 mg/dL (0.15-1.2) 03/25/22 12:05 AST 17 U/L (0-40) 03/25/22 12:05 ALT 14 U/L (0-41) 03/25/22 12:05 Alkaline Phosphatase 115 IU/L (40-130) 03/25/22 12:05 Total Protein 6.5 g/dL (6.6-8.7) L 03/25/22 12:05 Albumin 3.5 g/dL (3.5-5.2) 03/25/22 12:05 Globulin 3.0 g/dL (1.3-4.6) 03/25/22 12:05 TSH 2.66 uIU/mL (0.27-4.20) 03/25/22 12:05 Discharge Plan Discharge Patient Disposition: Home Clinical Impression: Elevated serum creatinine, Dysphagia due to recent stroke Condition: Stable Prescriptions: No Action lorazepam 0.5 mg tablet 0.5 mg PO TID 0RF brimonidine 0.2 % drops 1 drp ophthalmic (eye) BID 0RF Rx Instructions: instill 1 drop both eyes twice a day timolol maleate 0.5 % drops 1 drp ophthalmic (eye) BID 0RF Rx Instructions: instill 1 drop into each eye twice a day Men's Daily 0.4-600 mg-mcg Capsule 1 cap PO DAILY 0RF risperidone 0.5 mg tablet 0.5 mg PO DAILY 0RF atorvastatin 40 mg tablet 40 mg PO DAILY 0RF fluconazole 150 mg tablet 150 mg PO DAILY 0RF clopidogrel 75 mg tablet 75 mg PO DAILY 0RF benztropine 1 mg tablet 1 mg PO BID 0RF gabapentin 100 mg capsule 200 mg PO TID 0RF carbidopa-levodopa 25-100 mg tablet 1 tab PO TID 0RF sertraline 50 mg tablet 50 mg PO DAILY 0RF dutasteride 0.5 mg capsule 0.5 mg PO DAILY 0RF Discharge Orders: Discharge ED (Routine); Ordered 03/25/22 Ordered By: Hari Muijca Discharge Diet: Regular Discharge Activity: Increase activity as tolerated Patient Instructions: Dysphagia (ED) Activity Restrictions/Additional Instructions: Follow-up with medical provider as directed in the next 3 to 5 days for reevaluation. Have PCP recheck your creatinine levels as well at your next visit. Continue taking home medications as prescribed. Return to the ER or your medical provider if condition worsens. Please read and understand discharge instructions. Thank you for choosing [facility] for your healthcare needs today. Please realize this is an emergency room and that we are providing you with a medical screening exam and this may not be complete and all inclusive of all the testing and or work up that you may need to determine your ailment or severity of your illness. It is very important that you follow up as instructed or that you return to the Emergency Department should you have concerns or if your condition changes or worsens in any way. Coding Level of Care Code ED Joy Operator Helper for Michaela Fwd Exam Comprehensive
--- NOTE | 2022-03-25 12:11 | CT_ITS ---
WS: [id number] CT NECK WITH CONTRAST HISTORY: difficulty swallowing, feels something obstructing throat TECHNIQUE: Contiguous 5 mm axial images are performed through the neck with intravenous contrast. Sag ittal and coronal reformats are also submitted. All CT scans at [facility] use at least one o f these dose optimization techniques: automated exposure control; mA and/or kV adjustment per patient size (includes targeted exams where dose is matched to clinical indication); or iterative reconstruc tion. CONTRAST: CONTRAST: Omnipaque 300; 95 mL IV. DLP: 471.13 mGy.cm COMPARISON: 07/25/2011 Nasopharynx, oropharynx, hypopharynx and larynx are unremarkable. No soft tissue masses or abnormal e nhancement. Torus tubarius and fossa of Rosenmuller and parapharyngeal fat are normal. No significant lymphadenopathy is identified. Thyroid gland and salivary glands are normally enhancing with no masses. No destructive bone lesions. Facet degenerative changes and disc space narrowing throughout the cervi jonathan spine. There is a known, chronic expansile cystic lesion centered near the LEFT sphenoid wing extending into the LEFT middle cranial fossa measuring at least 3.2 x 2.9 cm. There is mild bony expansion similar to the prior studies. 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 There was a large amount of thrombus noted on the study of 01/21/2022. There is slightly better opacification with less obstruction. Visualized paranasal sinuses and mastoid air cells are normal. Lung apices are clear. CT/CT neck w con* [id number] IMPRESSION: 1. No neck mass or obstruction of the oropharynx or nasopharynx. 2. No adenopathy. 3. 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
[2022-03-25 12:33] LABS: Basophils # 0.1 10^3/uL (0.0-0.1); Basophils % 0.4 %; Eosinophils # 0.2 10^3/uL (0.0-0.8); Eosinophils % 1.1 %; Hematocrit 45.4 % (42.0-52.0); Lymphocytes # 2.6 10^3/uL (0.8-4.8); Lymphocytes % 15.9 %; Mean Corpuscular HGB Conc 35.2 g/dL (30.0-36.0); Mean Corpuscular Hemoglobin 30.1 pg (28.0-34.0); Mean Corpuscular Volume 85.5 fl (80-94); Mean Platelet Volume 10.8 fL (7.4-10.4); Monocytes # 1.4 10^3/uL (0.2-0.9); Monocytes % 8.4 %; Neutrophils # 11.93 10^3/uL (1.8-7.7); Neutrophils % 72.6 %; Nucleated Red Blood Cells % 0 %; Platelet Count 599 10^3/cmm (130-400); Red Blood Count 5.31 10^6/uL (4.1-5.3); Red Cell Distribution Width 15.6 % (12.1-15.1); White Blood Count 16.4 10^3/uL (4.0-10.0)
[2022-03-25 12:56] LABS: Alanine Aminotransferase 14 U/L (0-41); Albumin Level 3.5 g/dL (3.5-5.2); Alkaline Phosphatase 115 IU/L (40-130); Anion Gap 16.4 (5-19); Aspartate Amino Transferase 17 U/L (0-40); Blood Urea Nitrogen 22 mg/dL (8-23); Carbon Dioxide 22 mmol/L (22-29); Chloride 101 mmol/L (98-107); Glucose 139 mg/dL (65-115); Osmolality Calculated 288 mOsm/kg (285-295); Potassium 3.4 mmol/L (3.5-5.1); Sodium 136 mmol/L (136-145); Thyroid Stimulating Hormone 2.66 uIU/mL (0.27-4.20); Total Bilirubin 0.7 mg/dL (0.15-1.2); Total Protein 6.5 g/dL (6.6-8.7)
[2022-03-25 13:56] VITALS: BP 100/75; PULSE 76; RESP 16; O2SAT 97
[2022-03-25] MEDS: iohexol 350 mg/mL 100 mL Btl IV (13:59)
[2022-03-25] MEDS: sodium chloride 0.9% 1,000 ML 999 ML IV (14:08)
[2022-03-25 15:37] VITALS: BP 112/70; PULSE 74; RESP 16; TEMP 36.7; O2SAT 99
== END 2022-03-25 15:39 | disposition home or self-care (01) ==
PROVIDERS: Emergency Provider Physician Assistant
DX: I69.391 Dysphagia following cerebral infarction (principal); R13.10 Dysphagia, unspecified; R79.89 Other specified abnormal findings of blood chemistry; Z79.02 Long term (current) use of antithrombotics/antiplatelets
CPT/HCPCS: 70491; 71045; 80053; 84443; 85025; 96360; 99284; J7030; Q9967

== ENCOUNTER 2022-03-28 06:00 | Outpatient (RCR) | payer MEDICARE, OTHER, SELFPAY | END 2022-03-28 23:55 | disposition home or self-care (01) | LOC: SST 06:00 | PROVIDERS: PCP Internal Medicine; Referring Provider Internal Medicine; Visit Provider Internal Medicine | DX: I63.9 Cerebral infarction, unspecified (principal); I69.954 Hemiplegia and hemiparesis following unspecified cerebrovascular disease affecting left non-dominant side; R13.10 Dysphagia, unspecified | CPT/HCPCS: 92523; 92610 ==

== ENCOUNTER 2022-03-29 06:00 | Outpatient (RCR) | payer MEDICARE, OTHER, SELFPAY | END 2022-04-28 23:59 | disposition home or self-care (01) | LOC: SPO 06:00 | PROVIDERS: PCP Internal Medicine; Referring Provider Internal Medicine; Visit Provider Internal Medicine | DX: I63.133 Cerebral infarction due to embolism of bilateral carotid arteries (principal); G20 Parkinson's disease; R26.89 Other abnormalities of gait and mobility; R53.1 Weakness | CPT/HCPCS: 97110; 97112 ==

== ENCOUNTER 2022-03-29 06:00 | Outpatient (RCR) | payer MEDICARE, OTHER, SELFPAY | END 2022-04-28 23:59 | disposition home or self-care (01) | LOC: SST 06:00 | PROVIDERS: PCP Internal Medicine; Referring Provider Internal Medicine; Visit Provider Internal Medicine | DX: I69.391 Dysphagia following cerebral infarction (principal); I69.354 Hemiplegia and hemiparesis following cerebral infarction affecting left non-dominant side | CPT/HCPCS: 92507 ==

== ENCOUNTER 2022-04-23 10:26 | Outpatient (CLI) | payer MEDICARE, OTHER, SELFPAY ==
--- NOTE | 2022-04-23 10:35 | FL_ITS ---
WS: [id number] Exam: FL barium swallow modifd [id number] Date/Time of Exam: 04/23/2022 10:35 AM Reason For Exam: Other dysphagia Fluoroscopy time: 2min [id number] minutes # of spot films: 2 Modified barium swallow was performed in conjunction with the speech therapy service. The patient experienced a single episode of minimal penetration into the laryngeal inlet when ingesti ng thin liquid barium solutions. The patient tolerated thick liquid, nectar consistency and solid bar ium mixture foodstuffs without incident. The patient ingested the barium pill without complication. T here was no sign of aspiration. FL/FL barium swallow modifd [id number] IMPRESSION: 1. Single episode of minimal penetration into the laryngeal inlet when the janeth ent ingested thin liquid barium solution. The patient tolerated the remaining b arium consistency foodstuffs without aspiration or penetration. A separate report of the recommendations and findings will follow from the [facility] ch therapy service.
== END 2022-04-23 10:27 | disposition home or self-care (01) ==
PROVIDERS: PCP Internal Medicine; Visit Provider Internal Medicine
DX: R13.19 Other dysphagia (principal)
CPT/HCPCS: 74230; 92611

== ENCOUNTER 2022-04-24 13:20 | Observation (INO) | payer MEDICARE, OTHER, SELFPAY ==
[2022-04-24] VITALS (8 sets, daily range): BP systolic 103–163; BP diastolic 63–87; PULSE 58–64; RESP 16–18; TEMP 36.6–36.8; O2SAT 94–98; BMI 25.0
--- NOTE | 2022-04-24 14:14 | XR_ITS ---
WS: [id number] Exam: XR chest 1V portable [id number] Date/Time of Exam: 04/24/2022 3:11 PM Reason For Exam: weakness Comparison 03/25/2012. Lungs are fully inflated and clear. Normal cardiomediastinal silhouette. No pleural effusions. 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 Left humeral head prosthesis partially visualized. XR/XR chest 1V portable [id number] IMPRESSION: 1. No acute cardiopulmonary finding.
--- NOTE | 2022-04-24 15:23 | CTR_ITS ---
PROCEDURE INFORMATION: Exam: CT Head Without Contrast Exam date and time: 04/24/2022 4:10 PM Age: 77 years old Clinical indication: Weakness, extremity; Bilateral TECHNIQUE: Imaging protocol: Computed tomography of the head without contrast. Radiation optimization: All CT scans at this facility use at least one of these dose optimization techniques: automated exposure control; mA and/or kV adjustment per patient size (includes targeted exams where dose is matched to clinical indication); or iterative reconstruction. COMPARISON: CT head wo con* [id number] 02/03/2022 11:31 PM RADIATION DOSE METRICS: Total DLP (mGy-cm): 1219.58 FINDINGS: Brain: Mild atrophy and mild white matter chronic microvascular changes are noted. No hemorrhage or evidence of acute infarction. Cerebral ventricles: No ventriculomegaly. Paranasal sinuses: Visualized sinuses are unremarkable. No fluid levels. Mastoid air cells: Visualized mastoid air cells are well aerated. Bones/joints: Again seen is in expansile fat density lesion in the left pterygoid bones extending into the left middle cranial fossa, which appear stable and may be benign. The left sphenopalatine fossa is narrowed, but appears uninvolved. No acute fracture is seen. Soft tissues: No soft tissue swelling. CT/CT head wo con* [id number] IMPRESSION: 1. No acute intracranial abnormality. 2. Stable expansile fat density lesion in the left pterygoid bones/middle cranial fossa region.
--- NOTE | 2022-04-24 15:39 | ED_ITS ---
HPI - General Adult General: Chief complaint: Weakness Stated complaint: Weakness Time Seen by Provider: 04/24/22 14:58 History of Present Illness: Patient is a 77-year-old male with a history of recent stroke complicated by this aphasia and left-sided upper extremity weakness presenting to the emergency room after finishing his physical therapy for complaints of lightheadedness, shortness of breath, and b/l leg weakness. Patient tells me that he shortly after completing physical therapy on 130 this afternoon, he has been experiencing lightheadedness, shortness of breath and bi lateral leg weakness. Patient tells me that he is able to move his legs but feels like his leg weighs a ton. Patient denies any chest pain, palpitation, nausea/vomiting, lightheadedness loss of consciousness, abdominal pain, diarrhea melena dehydration, decreased p.o. intake, complaints, cough, runny nose sore throat fever or chill. Patient denies any new onset of strokelike symptoms including complete paralysis weakness in the arms or legs, diplopia, language finding difficulty language comprehension difficulty, or facial droop. In addition, patient denies any recent back trauma, fall, bladder or bowel problem, saddle anesthesia, or loss of sensation lower extremities Onset: 1:30pm Duration:ongoing Location: rehab Severity:moderate Associated symptoms: Deny chest pain, dyspnea, nausea, rash, palpitations or vomiting Review of Systems Const: Denies: fever(s) or chills Eyes: Denies: change in vision ENMT: Denies: mouth pain Card: Denies: chest pain or palpitations Resp: Denies: dyspnea or non-productive cough GI: Denies: abdominal pain, nausea, vomiting or diarrhea : Denies: dysuria Musc: Denies: extremity pain Skin/Breast: Denies: rash or new lesions Neuro: Reports: other (+b/l leg weakness); Denies: weakness in extremities Psych: Reports: other (Normal mood) Sachin/Lymph: Denies: easy bruising PFS ED PFSH: Medical History CVA (cerebral vascular accident) Parkinsons disease Surgical History No pertinent past surgical history Social History Smoking and tobacco status: never smoked Alcohol intake: never Substance/Drug Use: never Physical Exam Const: COMMON NORMALS: alert HENMT: COMMON NORMALS: atraumatic HEAD & SCALP: atraumatic MOUTH: moist mucous membranes not abnormal Eye: COMMON NORMALS: EOMs intact bilaterally and conjunctivae normal CONJUNCTIVA: Yes conjunctivae normal Neck/C-Spine: COMMON NORMALS: full ROM and supple Resp: COMMON NORMALS: normal respiratory effort and clear to auscultation bilaterally AUSCULTATION: clear to auscultation bilaterally Cardio: COMMON NORMALS: regular rate RATE: regular rate GI: COMMON NORMALS: Soft to palpation and non-tender PALPATION: Yes Soft to palpation Extremity: COMMON NORMALS: full ROM Neuro: SENSORIUM/ORIENTATION: Yes alert MOTOR EXAM: No Abnormal motor strength present and Other motor observations present (no focal motor deficits) OTHER: Mental status? Awake, alert, and oriented to self, year, month, location, and situation.? Following simple axial and appendicular commands.? Has appropriate fund of knowledge, comprehension, and insight.? Able to recall and understands pertinent aspects of medical history and current treatment status.? ? Language? Speech is fluent without word-finding difficulties.? Intact naming, expression, clinic receptionist, and repetition.? ? Cranial nerves? 2,3,4,6: PERRL, EOMI with no nystagmus. 5: Intact sensation to light touch, symmetric? 7: Smile symmetrical, no facial droop.? 8: Hearing grossly intact.? 9,10: Normal palate movement.? 11: Normal strength in trapezius bilaterally 12: Tongue protrudes midline.? ? Motor examination? Normal bulk & tone. Strength as follows (R/L): Delts (5/5), Biceps (5/5), Triceps (5/5), Wrist ext (5/5), hip flexors (5/5), plantarflexors (5/5), dorsiflexors (5/5). ? Sensation? Light Touch: Grossly intact and equal in upper and lower extremities bilaterally? Romberg: Negative.? Distal joint position sense intact ? Coordination? [id number]-dm-[id number]-finger movements intact without dysmetria or past-pointing.? Rapid fingertaps: preserved amplitude without decriment.? No tremor, myoclonus or truncal ataxia.? ? Gait/stance? Steady, normal narrow base gait with appropriate arm swing and turning.? Tandem gait without hesitation or loss of balance. Psych: COMMON NORMALS: speech normal SPEECH: Yes normal speech MOOD & AFFECT: Yes euthymic mood Course Vital Signs: Vital signs: Vital Signs Temperature 98.2 F 04/24/22 13:39 Pulse Rate 58 L 04/24/22 13:39 Respiratory Rate 18 04/24/22 13:39 Blood Pressure 103/63 04/24/22 13:39 Pulse Oximetry 96 04/24/22 13:39 Oxygen Delivery Me thod 04/24/22 13:39 MDM - General Adult Medical Decision Making 77-year-old male with a history of prior CVA residual left-sided weakness and dysphagia presenting to the emergency room with complaints of lightheadedness, worse present leg heaviness for the last 2 hours. On exam, Patient is at baseline for neurological assessment. Work-up showed white count 12.9.'s of lab within normal limit. CT showed stable expansile fat density lesion in the left pterygoid bone area. Patient has no signs of brain bleed. Patient continues tolightheadedness after IVF. Patient will be admitted to hospital for further work-up of lightheadedness. Disposition: admission Lab Data : 04/24/22 15:46 04/24/22 15:46 Radiology Impressions Chest X-Ray 04/24/22 14:14 IMPRESSION: 1. No acute cardiopulmonary finding. Head CT 04/24/22 15:23 IMPRESSION: 1. No acute intracranial abnormality. 2. Stable expansile fat density lesion in the left pterygoid bones/middle cranial fossa region. Laboratory Results WBC 12.9 10^3/uL (4.0-10.0) H 04/24/22 15:46 RBC 4.98 10^6/uL (4.1-5.3) 04/24/22 15:46 Hgb 15.0 g/dL (11.7-16.6) 04/24/22 15:46 Hct 44.2 % (42.0-52.0) 04/24/22 15:46 MCV 88.8 fl (80-94) 04/24/22 15:46 MCH 30.1 pg (28.0-34.0) 04/24/22 15:46 MCHC 33.9 g/dL (30.0-36.0) 04/24/22 15:46 RDW 15.0 % (12.1-15.1) 04/24/22 15:46 Plt Count 567 10^3/cmm (130-400) H 04/24/22 15:46 MPV 10.6 fL (7.4-10.4) H 04/24/22 15:46 Neut % (Auto) 75.4 % 04/24/22 15:46 Lymph % (Auto) 13.8 % 04/24/22 15:46 [place] % (Auto) 9.0 % 04/24/22 15:46 Eos % (Auto) 0.6 % 04/24/22 15:46 Baso % (Auto) 0.5 % 04/24/22 15:46 Neut # (Auto) 9.70 10^3/uL (1.8-7.7) H 04/24/22 15:46 Lymph # (Auto) 1.8 10^3/uL (0.8-4.8) 04/24/22 15:46 [place] # (Auto) 1.2 10^3/uL (0.2-0.9) H 04/24/22 15:46 Eos # (Auto) 0.1 10^3/uL (0.0-0.8) 04/24/22 15:46 Baso # (Auto) 0.1 10^3/uL (0.0-0.1) 04/24/22 15:46 Nucleated RBC % (auto) 0 % 04/24/22 15:46 Nucleated RBCs # 0.0 /100WBC 04/24/22 15:46 Sodium 140 mmol/L (136-145) 04/24/22 15:46 Potassium 3.8 mmol/L (3.5-5.1) 04/24/22 15:46 Chloride 106 mmol/L (98-107) 04/24/22 15:46 Carbon Dioxide 21 mmol/L (22-29) L 04/24/22 15:46 Anion Gap 16.8 (5-19) 04/24/22 15:46 BUN 15 mg/dL (8-23) 04/24/22 15:46 Creatinine 1.0 mg/dL (0.7-1.2) 04/24/22 15:46 GFR Calculation Not Reportable 04/24/22 15:46 Glucose 130 mg/dL (65-115) H 04/24/22 15:46 Calculated Osmolality 293 mOsm/kg (285-295) 04/24/22 15:46 Calcium 9.3 mg/dL (8.5-10.5) 04/24/22 15:46 Total Bilirubin 0.7 mg/dL (0.15-1.2) 04/24/22 15:46 AST 20 U/L (0-40) 04/24/22 15:46 ALT 25 U/L (0-41) 04/24/22 15:46 Alkaline Phosphatase 124 IU/L (40-130) 04/24/22 15:46 Troponin T Baseline 13 ng/L (0-15) 04/24/22 15:46 Total Protein 6.5 g/dL (6.6-8.7) L 04/24/22 15:46 Albumin 3.6 g/dL (3.5-5.2) 04/24/22 15:46 Globulin 2.9 g/dL (1.3-4.6) 04/24/22 15:46 Urine Color Straw (Yellow) 04/24/22 16:30 Urine Appearance Clear (CLEAR) 04/24/22 16:30 Urine pH 8 (5-7) H 04/24/22 16:30 Ur Specific [place] 1.005 (1.005-1.030) 04/24/22 16:30 Urine Protein Neg (Negative) 04/24/22 16:30 Urine Glucose (UA) Norm (Normal) 04/24/22 16:30 Urine Ketones Negative (Negative) 04/24/22 16:30 Urine Blood Neg (Negative) 04/24/22 16:30 Urine Nitrate Negative (Negative) 04/24/22 16:30 Urine Bilirubin Neg (Negative) 04/24/22 16:30 Prot Sulfosalicylic Acd Negative (Negative) 04/24/22 16:30 Urine Urobilinogen Norm mg/dL (Negative) 04/24/22 16:30 Ur Leukocyte Esterase Negative (Negative) 04/24/22 16:30 SARS-CoV-2 Ag (Rapid) Negative (Negative) 04/24/22 15:42 Imaging Data Other Imaging: Radiologist's impression: [facility] [address] [place] [address] CT Scan Report Signed Patient: Reid Mcbride Unit #: [id number] : 1945 Age/Sex: 77 / M ADM Date: 04/24/22 Loc: ER Room/Bed: Attending Dr: Ordering Provider/Ordering MD: Lynn Contreras MD Date of Service: 04/24/22 Procedure(s): CT head wo con* [id number] Accession Number(s): [id number] Report Number: [id number] PROCEDURE INFORMATION: Exam: CT Head Without Contrast Exam date and time: 04/24/2022 4:10 PM Age: 77 years old Clinical indication: Weakness, extremity; Bilateral TECHNIQUE: Imaging protocol: Computed tomography of the head without contrast. Radiation optimization: All CT scans at this facility use at least one of these dose optimization techniques: automated exposure control; mA and/or kV adjustment per patient size (includes targeted exams where dose is matched to clinical indication); or iterative reconstruction. COMPARISON: CT head wo con* [id number] 02/03/2022 11:31 PM RADIATION DOSE METRICS: Total DLP (mGy-cm): 1219.58 FINDINGS: Brain: Mild atrophy and mild white matter chronic microvascular changes are noted. No hemorrhage or evidence of acute infarction. Cerebral ventricles: No ventriculomegaly. Paranasal sinuses: Visualized sinuses are unremarkable. No fluid levels. Mastoid air cells: Visualized mastoid air cells are well aerated. Bones/joints: Again seen is in expansile fat density lesion in the left pterygoid bones extending into the left middle cranial fossa, which appear stable and may be benign. The left sphenopalatine fossa is narrowed, but appears uninvolved. No acute fracture is seen. Soft tissues:? No soft tissue swelling. CT/CT head wo con* [id number] IMPRESSION: 1. No acute intracranial abnormality. 2. Stable expansile fat density lesion in the left pterygoid bones/middle cranial fossa region. ? 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
--- NOTE | 2022-04-24 15:51 | ECG_ITS ---
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 Measurements Intervals [place] Rate: 57 P: 12 KS: 178 QRS: -3 QRSD: 93 T: 20 QT: 471 QTc: 461 Interpretive Statements SINUS BRADYCARDIA PROLONGED QT INTERVAL Compared to ECG 01/21/2022 11:28:46 Prolonged QT interval now present Sinus rhythm no longer present Electronically Signed On 04-24-2022 16:31:27 CDT by Calderon Menchaca M.D. [id number]
[2022-04-24 15:59] LABS: Basophils # 0.1 10^3/uL (0.0-0.1); Basophils % 0.5 %; Eosinophils # 0.1 10^3/uL (0.0-0.8); Eosinophils % 0.6 %; Hematocrit 44.2 % (42.0-52.0); Lymphocytes # 1.8 10^3/uL (0.8-4.8); Lymphocytes % 13.8 %; Mean Corpuscular HGB Conc 33.9 g/dL (30.0-36.0); Mean Corpuscular Hemoglobin 30.1 pg (28.0-34.0); Mean Corpuscular Volume 88.8 fl (80-94); Mean Platelet Volume 10.6 fL (7.4-10.4); Monocytes # 1.2 10^3/uL (0.2-0.9); Neutrophils % 75.4 %; Nucleated Red Blood Cells % 0 %; Platelet Count 567 10^3/cmm (130-400); Red Blood Count 4.98 10^6/uL (4.1-5.3); White Blood Count 12.9 10^3/uL (4.0-10.0)
[2022-04-24 16:15] LABS: Troponin(5th) Baseline 13 ng/L (0-15)
[2022-04-24 16:17] LABS: Alanine Aminotransferase 25 U/L (0-41); Albumin Level 3.6 g/dL (3.5-5.2); Alkaline Phosphatase 124 IU/L (40-130); Anion Gap 16.8 (5-19); Aspartate Amino Transferase 20 U/L (0-40); Blood Urea Nitrogen 15 mg/dL (8-23); Calcium 9.3 mg/dL (8.5-10.5); Carbon Dioxide 21 mmol/L (22-29); Chloride 106 mmol/L (98-107); Creatinine Clr Calc Pharmacy 61.1193; Globulin 2.9 g/dL (1.3-4.6); Glucose 130 mg/dL (65-115); Osmolality Calculated 293 mOsm/kg (285-295); Potassium 3.8 mmol/L (3.5-5.1); Sodium 140 mmol/L (136-145); Total Bilirubin 0.7 mg/dL (0.15-1.2); Total Protein 6.5 g/dL (6.6-8.7)
[2022-04-24] MEDS: sodium chloride 0.9% 1,000 ML 999 ML IV (16:34)
[2022-04-24 16:41] LABS: Add Urine Microscopic? NO; Charge for UA Resulting for Rev
[2022-04-24 16:42] LABS: SARS Covid-2 Antigen Negative (Negative)
--- NOTE | 2022-04-24 16:57 | ECG_ITS ---
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 Measurements Intervals [place] Rate: 57 P: 20 IA: 151 QRS: 5 QRSD: 90 T: 5 QT: 480 QTc: 469 Interpretive Statements SINUS BRADYCARDIA PROLONGED QT INTERVAL Compared to ECG 04/24/2022 15:51:56 No significant changes Electronically Signed On 04-25-2022 21:32:28 CDT by Abiola Florez M.D. [id number]
[2022-04-24 17:06] LABS: Bilirubin Urine Neg (Negative); Blood Urine Neg (Negative); Glucose Urine UA Norm (Normal); Ketones Urine Negative (Negative); Leukocyte Esterase Urine Negative (Negative); Nitrate Urine Negative (Negative); Protein Urine Neg (Negative); Specific Gravity, Urine 1.005 (1.005-1.030); Urine Appearance Clear (CLEAR); Urine Color Straw (Yellow); Urobilinogen Urine Norm (Negative); pH Urine 8 (5-7)
[2022-04-24 17:07] LABS: Sulfosalicylic Acid Urine Negative (Negative)
[2022-04-24 18:16] LABS: Troponin 5 2HR 11.82 ng/L (0-15)
--- NOTE | 2022-04-24 18:22 | P.HP_ITS ---
Providers/Chief Complaint Primary Care Provider: Reid Cabrera DO Chief Complaint: Weakness History of Present Illness Reid Mcbride is a 77 year old male who has a neurologist in [place] presented today after his rehab session. Patient is stating that after his occupational therapy session he started experiencing numbness and weakness of his bilateral legs. From his previous stroke he has weakness of left arm, right leg, he also has been experiencing mild dysphagia however eating regular diet, he was also diagnosed with carotid artery dissection, his neurologist is following up on that, he is not taking any anticoagulating agent, he also getting Parkinson's meds however today he did not take his carbidopa/levodopa. Patient is also endorsing urine incontinence. Neuropathic pain of his feet. Is not diabetic. NIH score 1 for mild weakness of left arm he is awake and alert, tachypneic Saturating well He has good strength of lower extremities Left arm medical csr slightly weak Family is at the bedside who is helping me obtaining all the information I will request MRI head, MRI lumbar spine tomorrow Check hemoglobin A1c level continue his Plavix As per his son patient had CVA at multiple sites of his cortex, no diagnosis of A. fib Review of Systems Const: Denies: chills Eyes: Denies: change in vision ENMT: Denies: throat pain Card: Denies: chest pain Resp: Denies: dyspnea GI: Denies: abdominal pain : Denies: flank pain Musc: Denies: neck pain Skin/Breast: Denies: rash Neuro: Reports: weakness in extremities, lack of coordination and difficulty walking Psych: Reports: anxiety Endo: Denies: polyuria Sachin/Lymph: Denies: easy bruising All/Imm: Denies: urticaria Medications/Allergies Home Medications Medication Instructions Recorded Confirmed Last Taken Type brimonidine 0.2 % eye drops 1 drp ophthalmic (eye) BID 12/07/21 04/24/22 04/24/22 History lorazepam 0.5 mg tablet 0.5 mg PO TID 12/07/21 04/24/22 04/24/22 History multivit with minerals-folic 1 cap PO DAILY 12/07/21 04/24/22 04/24/22 History acid-lycopene 0.4 mg-600 mcg capsule (Men's Daily) timolol maleate 0.5 % eye drops 1 drp ophthalmic (eye) BID 12/07/21 04/24/22 04/24/22 History risperidone 0.5 mg tablet 0.5 mg PO BEDTIME 01/21/22 04/24/22 04/23/22 History atorvastatin 40 mg tablet 40 mg PO DAILY 03/25/22 04/24/22 04/23/22 History benztropine 1 mg tablet 1 mg PO BID 03/25/22 04/24/22 04/24/22 History carbidopa 25 mg-levodopa 100 mg 1 tab PO TID 03/25/22 04/24/22 04/24/22 History tablet clopidogrel 75 mg tablet 75 mg PO DAILY 03/25/22 04/24/22 04/24/22 History dutasteride 0.5 mg capsule 0.5 mg PO DAILY 03/25/22 04/24/22 04/23/22 History gabapentin 100 mg capsule 200 mg PO TID 03/25/22 04/24/22 04/24/22 History sertraline 50 mg tablet 50 mg PO DAILY 03/25/22 04/24/22 04/24/22 History Allergies Allergy/AdvReac Type Severity Reaction Status Date / Time No Known Allergies Allergy Verified 01/21/22 12:26 PFSH Acute PFSH: Medical History CVA (cerebral vascular accident) Parkinsons disease Surgical History (Updated 04/24/22 @ 19:12 by Linda Clancy MD) H/O shoulder surgery No pertinent past surgical history Family History (Updated 04/24/22 @ 19:10 by Linda Clancy MD) Denies family history of Cancer Social History Smoking and tobacco status: never smoked Alcohol intake: never Substance/Drug Use: never Vitals/I&O/Wt Last Vital Signs Temp 98.2 F 04/24/22 13:39 Pulse 60 04/24/22 17:00 Resp 18 04/24/22 13:39 BP 148/80 04/24/22 17:00 Pulse Ox 94 04/24/22 17:00 O2 Del Method 04/24/22 17:00 Weight last 48 hrs Weight 74.843 kg Physical Exam Narrative: Pleasant and cooperative Left hand weakness Good strength of lower extremities Sensations intact Able to follow commands Pleasant and cooperative Nonfocal neuro exam Awake and alert S1, S2 Slightly tachypneic however saturating well on room air Abdomen soft Data : 04/24/22 15:46 04/24/22 15:46 A&P Assessment and plan (1) Dyspnea: Status: Acute (2) Bilateral leg weakness: Status: Acute Plan Left leg weakness Urine incontinence Recent CVA Multilevel CVA Carotid artery dissection Will request MRI head, MRI lumbar spine I do believe his symptoms are related to Parkinson's Continue his carbidopa/levodopa benztropine Cause of neuropathy is unknown check hemoglobin A1c level and rule out spinal cord compression I will request BNP level because he is tachypneic saturating well on room air Patient is full code He eats regular diet Continue his Plavix and atorvastatin Will request records from [facility] neurologist Patient already is seeing speech therapy, Occupational Therapy and PT Attestations Medical Necessity Statement*: If his work-up is negative he will be discharged tomorrow within 48 hours Time Spent in Patient Care: 35 Coding Level of Care Code Acute [place] [employer] 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
[2022-04-24 18:40] LABS: Troponin 5 2HR Delta 1.18 ABS# (0-10)
--- NOTE | 2022-04-24 20:29 | ECG_ITS ---
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 Measurements Intervals [place] Rate: 59 P: 23 [place]: 140 QRS: 53 QRSD: 85 T: 41 QT: 432 QTc: 428 Interpretive Statements SINUS BRADYCARDIA WITH OCCASIONAL VENTRICULAR PREMATURE COMPLEXES Compared to ECG 04/24/2022 16:57:35 Ventricular premature complex(es) now present Prolonged QT interval no longer present Electronically Signed On 04-25-2022 21:33:28 CDT by Abiola Florez M.D. [id number]
[2022-04-24] MEDS: gabapentin 100 mg Capsule 200 MG PO (20:35)
[2022-04-24] MEDS: enoxaparin 40 mg/0.4 mL Syringe SUBCUT (20:35)
[2022-04-24] MEDS: risperiDONE 0.25 mg Tablet 0.5 MG PO (20:36)
[2022-04-24] MEDS: carbidopa-levodopa 25-100mg Tablet 1 EACH PO (20:36)
[2022-04-24 22:07] LABS: Estmated Average Glucose 128; Hemoglobin A1C 6.1 % (4.0-6.0)
[2022-04-24 22:31] LABS: Troponin 5 6HR 13.85 ng/L (0-15)
[2022-04-24 22:40] LABS: NT Pro B Type Natriuretic Pept 338 pg/mL (0-450)
[2022-04-24 22:43] LABS: Troponin 5 6HR Delta 0.85 ng/L (0-12)
[2022-04-25] VITALS (9 sets, daily range): BP systolic 132–159; BP diastolic 78–91; PULSE 40–88; RESP 17; TEMP 36.5–36.9; O2SAT 93–97
[2022-04-25 04:29] LABS: Basophils # 0.1 10^3/uL (0.0-0.1); Basophils % 0.5 %; Eosinophils # 0.1 10^3/uL (0.0-0.8); Hemoglobin 14.9 g/dL (11.7-16.6); Lymphocytes # 1.9 10^3/uL (0.8-4.8); Lymphocytes % 19.9 %; Mean Corpuscular HGB Conc 35.5 g/dL (30.0-36.0); Mean Corpuscular Hemoglobin 30.1 pg (28.0-34.0); Mean Corpuscular Volume 84.8 fl (80-94); Mean Platelet Volume 10.6 fL (7.4-10.4); Monocytes # 1.1 10^3/uL (0.2-0.9); Monocytes % 12.1 %; Neutrophils # 6.18 10^3/uL (1.8-7.7); Neutrophils % 65.9 %; Nucleated Red Blood Cells % 0 %; Platelet Count 544 10^3/cmm (130-400); Red Blood Count 4.95 10^6/uL (4.1-5.3); Red Cell Distribution Width 15.2 % (12.1-15.1); White Blood Count 9.4 10^3/uL (4.0-10.0)
[2022-04-25 04:55] LABS: Anion Gap 15.3 (5-19); Blood Urea Nitrogen 12 mg/dL (8-23); Calcium 8.8 mg/dL (8.5-10.5); Carbon Dioxide 19 mmol/L (22-29); Chloride 112 mmol/L (98-107); Glucose 96 mg/dL (65-115); Magnesium 1.9 mg/dL (1.7-2.3); Osmolality Calculated 296 mOsm/kg (285-295); Potassium 3.3 mmol/L (3.5-5.1); Sodium 143 mmol/L (136-145)
[2022-04-25] MEDS: potassium chloride ER 20 mEq Tablet 40 MEQ PO (10:00)
[2022-04-25] MEDS: gabapentin 100 mg Capsule 200 MG PO ×2 (10:00→14:22)
[2022-04-25] MEDS: carbidopa-levodopa 25-100mg Tablet 1 EACH PO ×2 (10:00→14:21)
[2022-04-25] MEDS: clopidogrel 75 mg Tablet PO (10:00)
[2022-04-25] MEDS: atorvastatin 40 mg Tablet PO (10:01)
[2022-04-25] MEDS: dutasteride 0.5 mg Capsule PO (10:01)
[2022-04-25] MEDS: benztropine 1 mg Tablet PO (10:06)
--- NOTE | 2022-04-25 10:17 | PC.CHAP ---
Pastoral Care Encounter/Spiritual Assessment Type of Contact [] Declined press feeder visit [] Patient/Family/Request visit [] Outpatient visit [] Follow-up visit [] Physician referral [] Code/Alert [x] Routine visit [] Staff referral [] Actively dying [] Patient sleeping [] Family support [] [] Out of room [] Palliative care [] [x] Receiving care in room [] Pre-surgical visit [] Trauma [] Long length of stay [] ICU visit [] Other: Relational/Emotional Strength [x] Patient feels connected with others/family/visitors/staff [] Distress [] Loneliness/isolation [] Abandonment Spirituality of Patient [x] Person of Latricia [] Attends Church of their Latricia [x] Believes in Prayer [] Reads Bible or Latter-Day materials [] There are Spiritual issues to be addressed 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 Interventions [x] Prayer [x] Active listening [x] Non-anxious presence [x] Spiritual/emotional support [] Crisis/trauma care [x] Spiritual counseling [] Bereavement support [] Provided bereavement packet [] Provided Bible/devotional materials [] Provided toy/stuffed animal, coloring book to patient or family member [] Provided Communion [] Anointing/[place] [] Salvation [x] Completed spiritual assessment [] Other: Impact on Illness or Injury [] Angry [] Fearful [x] Anxious [] Often cries [] Exhaustion [] Unable to work [] Unable to attend presybeterian [] Unable to walk/stand [] Unable to read [] Unable to drive [] Unable to eat/drink [] Unable to sleep [] Unable to be with family [] Patient intubated [] Other: Summary dealing heart waiting on tests and doctors report has good attitude well go home at some point Time spent with patient 10 mins
--- NOTE | 2022-04-25 11:53 | PM.DCS ---
Discharge Providers Date of Admission: 04/24/22 17:22 Date of Discharge: April 25, 2022 Attending Provider at Admission: Linda Clancy MD Attending Provider at Discharge: Linda Clancy MD Primary Care Provider: Reid Cabrera DO Diagnoses at Discharge Discharge Diagnosis (1) Dyspnea: Status: Acute (2) Bilateral leg weakness: Status: Acute Reason for Visit Reason for Visit: Weakness Hospital Course Hospital Course 77-year-old male who presented for bilateral leg weakness after his occupational therapy session. Patient suffered from a recent stroke, carotid artery dissection following up with his neurologist at [facility]. He has not been prescribed Eliquis. He is on Plavix and statin. Patient is stating that he did not take his Parkinson's meds before his occupational therapy session on the day of admission. At the time of admission no signs of stroke, he was able to move his legs without any assistance, he has good strength against gravity as well, did well with physical therapy throughout his hospitalization, no worsening of symptoms. He remained hemodynamically stable. CBC BMP unremarkable. Patient is also endorsing urinary incontinence I would like to rule out spinal cord compression. I have requested MRI of her spine. I requested patient to continue his PT/OT and ST. Follow-up with his neurologist. As per the patient repeat carotid Doppler scan has been obtained, they are waiting for a phone call from his neurologist. His hemoglobin A1c is 6.1 prediabetic range. Potassium is 3.3. No signs of congestive heart failure. Patient was a bit tachypneic however chest x-ray is unremarkable. My suspicion for Guillain-Edouard? at this point is low. No signs of myasthenia. COVID antigen negative. EKG did show sinus bradycardia however now heart rate is above 60s, will recommend event monitor at the time of discharge. 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 with assistance Did work with physical therapy Good strength of lower extremities No signs of cauda equina clinically Awake and alert Heart rate above 60 Hemodynamically stable Satting well on room air Tachypnea has improved No conversational dyspnea Discharge Data Studies Completed and Pending Completed Studies During Hospitalization Category Date Time Status CT head wo con* [id number] Urgent Cat Scan 04/24/22 15:23 Completed XR chest 1V portable [id number] Stat Exams 04/24/22 14:14 Completed Pending at discharge Category Date Time Status MR head wo con* [id number] Urgent MRI 04/25/22 14:30 Ordered MR lumbar spine wo con* [id number] Routine MRI 04/25/22 13:45 Ordered Radiology Impressions Chest X-Ray 04/24/22 14:14 IMPRESSION: 1. No acute cardiopulmonary finding. Head CT 04/24/22 15:23 IMPRESSION: 1. No acute intracranial abnormality. 2. Stable expansile fat density lesion in the left pterygoid bones/middle cranial fossa region. Laboratory Results WBC 9.4 10^3/uL (4.0-10.0) 04/25/22 04:14 RBC 4.95 10^6/uL (4.1-5.3) 04/25/22 04:14 Hgb 14.9 g/dL (11.7-16.6) 04/25/22 04:14 Hct 42.0 % (42.0-52.0) 04/25/22 04:14 MCV 84.8 fl (80-94) 04/25/22 04:14 MCH 30.1 pg (28.0-34.0) 04/25/22 04:14 MCHC 35.5 g/dL (30.0-36.0) 04/25/22 04:14 RDW 15.2 % (12.1-15.1) H 04/25/22 04:14 Plt Count 544 10^3/cmm (130-400) H 04/25/22 04:14 MPV 10.6 fL (7.4-10.4) H 04/25/22 04:14 Neut % (Auto) 65.9 % 04/25/22 04:14 Lymph % (Auto) 19.9 % 04/25/22 04:14 [place] % (Auto) 12.1 % 04/25/22 04:14 Eos % (Auto) 1.0 % 04/25/22 04:14 Baso % (Auto) 0.5 % 04/25/22 04:14 Neut # (Auto) 6.18 10^3/uL (1.8-7.7) 04/25/22 04:14 Lymph # (Auto) 1.9 10^3/uL (0.8-4.8) 04/25/22 04:14 [place] # (Auto) 1.1 10^3/uL (0.2-0.9) H 04/25/22 04:14 Eos # (Auto) 0.1 10^3/uL (0.0-0.8) 04/25/22 04:14 Baso # (Auto) 0.1 10^3/uL (0.0-0.1) 04/25/22 04:14 Nucleated RBC % (auto) 0 % 04/25/22 04:14 Nucleated RBCs # 0.0 /100WBC 04/25/22 04:14 Sodium 143 mmol/L (136-145) 04/25/22 04:14 Potassium 3.3 mmol/L (3.5-5.1) L 04/25/22 04:14 Chloride 112 mmol/L (98-107) H 04/25/22 04:14 Carbon Dioxide 19 mmol/L (22-29) L 04/25/22 04:14 Anion Gap 15.3 (5-19) 04/25/22 04:14 BUN 12 mg/dL (8-23) 04/25/22 04:14 Creatinine 0.9 mg/dL (0.7-1.2) 04/25/22 04:14 GFR Calculation Not Reportable 04/25/22 04:14 Glucose 96 mg/dL (65-115) 04/25/22 04:14 Estimat Average Glucose 128 04/24/22 21:39 Hemoglobin A1c 6.1 % (4.0-6.0) H 04/24/22 21:39 Calculated Osmolality 296 mOsm/kg (285-295) H 04/25/22 04:14 Calcium 8.8 mg/dL (8.5-10.5) 04/25/22 04:14 Magnesium 1.9 mg/dL (1.7-2.3) 04/25/22 04:14 Total Bilirubin 0.7 mg/dL (0.15-1.2) 04/24/22 15:46 AST 20 U/L (0-40) 04/24/22 15:46 ALT 25 U/L (0-41) 04/24/22 15:46 Alkaline Phosphatase 124 IU/L (40-130) 04/24/22 15:46 Troponin T Baseline 13 ng/L (0-15) 04/24/22 15:46 Troponin T 120 Minute 11.82 ng/L (0-15) 04/24/22 17:39 Delta Troponin T 1.18 ABS# (0-10) 04/24/22 17:39 Troponin T Hi Sens 6Hr 13.85 ng/L (0-15) 04/24/22 21:39 Troponin T Hi Sens 6Hr Delta 0.85 ng/L (0-12) 04/24/22 21:39 NT-Pro-B Natriuret Pep 338 pg/mL (0-450) 04/24/22 21:39 Total Protein 6.5 g/dL (6.6-8.7) L 04/24/22 15:46 Albumin 3.6 g/dL (3.5-5.2) 04/24/22 15:46 Globulin 2.9 g/dL (1.3-4.6) 04/24/22 15:46 Urine Color Straw (Yellow) 04/24/22 16:30 Urine Appearance Clear (CLEAR) 04/24/22 16:30 Urine pH 8 (5-7) H 04/24/22 16:30 Ur Specific [place] 1.005 (1.005-1.030) 04/24/22 16:30 Urine Protein Neg (Negative) 04/24/22 16:30 Urine Glucose (UA) Norm (Normal) 04/24/22 16:30 Urine Ketones Negative (Negative) 04/24/22 16:30 Urine Blood Neg (Negative) 04/24/22 16:30 Urine Nitrate Negative (Negative) 04/24/22 16:30 Urine Bilirubin Neg (Negative) 04/24/22 16:30 Prot Sulfosalicylic Acd Negative (Negative) 04/24/22 16:30 Urine Urobilinogen Norm mg/dL (Negative) 04/24/22 16:30 Ur Leukocyte Esterase Negative (Negative) 04/24/22 16:30 SARS-CoV-2 Ag (Rapid) Negative (Negative) 04/24/22 15:42 Vitals Last Vital Signs Temp 98 F 04/25/22 11:08 Pulse 64 04/25/22 11:08 Resp 17 04/25/22 11:08 BP 132/78 04/25/22 11:08 Pulse Ox 97 04/25/22 11:08 O2 Del Method 04/25/22 11:08 Discharge Plan Discharge Patient Disposition: Home Condition: Stable Prescriptions: Continued lorazepam 0.5 mg tablet 0.5 mg PO TID brimonidine 0.2 % drops 1 drp ophthalmic (eye) BID Rx Instructions: instill 1 drop both eyes twice a day timolol maleate 0.5 % drops 1 drp ophthalmic (eye) BID Rx Instructions: instill 1 drop into each eye twice a day Men's Daily 0.4-600 mg-mcg Capsule 1 cap PO DAILY risperidone 0.5 mg tablet 0.5 mg PO BEDTIME atorvastatin 40 mg tablet 40 mg PO DAILY clopidogrel 75 mg tablet 75 mg PO DAILY gabapentin 100 mg capsule 200 mg PO TID carbidopa-levodopa 25-100 mg tablet 1 tab PO TID sertraline 50 mg tablet 50 mg PO DAILY dutasteride 0.5 mg capsule 0.5 mg PO DAILY Discontinued benztropine 1 mg tablet 1 mg PO BID Discharge Orders: Discharge Order (Routine); Ordered 04/25/22 Ordered By: Linda Clancy Other Ambulatory Orders: MCT/Event Monitor 21 Days (Routine) Timeframe: 21 Days Facility: [facility] - Location: Radiology Ordered By: Linda Clancy Referrals: Reid Cabrera DO [Primary Care Provider] - 2 weeks Discharge Diet: Cardiac Discharge Activity: As per PT/OT instructions Patient Instructions: Opioid Safety Discharge Attestations Time Spent in Discharge Care*: less than 30 min Quality Metrics Clinical Quality Measures [ No reported AMI, CVA or VTE this stay] Coding Level of Care Code Acute Chg FW DC note Diagnoses Dyspnea R06.00 Bilateral leg weakness R29.898
--- NOTE | 2022-04-25 13:45 | MR_ITS ---
WS: [id number] MRI LUMBAR SPINE NONCONTRAST TECHNIQUE: Sagittal T1, T2 and STIR imaging. Axial T1 and T2 imaging. CLINICAL INFORMATION: leg weakness COMPARISON: None. FINDINGS: Exaggeration normal lumbar lordosis. No high-grade central canal narrowing. Slight retrolisthesis T12 on L1 with mild disc desiccation.Mild RIGHT greater than LEFT bony foraminal narrowing at T12-L1 Small cervical disc protrusions of the chief architect imaging at C3-C4 and C6-C7 with slight contact of the ce rvical cord. L1-L2: Mild annular bulging with osteophytic ridging. Mild foraminal narrowing. Mild cerebral arthrop athy. Spinal canal is patent. L2-L3: Mild facet arthropathy. Spinal canal and foramen are patent. L3-L4: Mild annular bulging. LEFT eccentric disc bulging with mild LEFT foraminal narrowing. RIGHT fo ramen is patent. Spinal canal is patent. L4-L5: Mild annular bulging with mild central canal stenosis. Slight impingement traversing RIGHT gre ater than LEFT L5 nerve roots. Mild facet arthropathy. Mild LEFT foraminal narrowing with slight cont act of the far exiting LEFT L4 nerve root. L5-S1: Disc osteophytic ridging. Mild LEFT and no significant RIGHT foraminal narrowing. Spinal canal is patent. Mild facet arthropathy. Visualized pelvic bony structures: Normal. Paravertebral soft tissues: Normal. MR/MR lumbar spine wo con* [id number] IMPRESSION: 1. Mild lumbar curve. No acute compression. No high-grade central canal stenos is. 2. Mild disc bulging L4-L5 with osteophytic ridging and slight narrowing of th e subarticular recess bilaterally. 3. Mild LEFT L4-L5 foraminal narrowing slightly contacts the exiting LEFT L4 n erve root laterally. 4. Mild LEFT L3-L4 foraminal narrowing. 5. Moderate facet arthropathy L4-L5. 6. Small cervical disc protrusions in the chief architect imaging at C3-C4 and C6-C7 wit h slight contact of the cervical cord with mild central canal stenosis.
--- NOTE | 2022-04-25 14:30 | MR_ITS ---
WS: [id number] MRI HEAD WITHOUT CONTRAST TECHNIQUE: Sagittal T1, T2 axial, T2 axial FLAIR, axial and coronal T1 images, axial susceptibility w eighted imaging, axial diffusion weighted images, and coronal T2 images were obtained. CLINICAL INFORMATION: cva COMPARISON: CT April 24, 2022 FINDINGS: No evidence of restricted diffusion to suggest acute ischemia. Ventricular system and basal cisterns are patent. Chronic lacunar infarcts in the deep parietal white matter bilaterally RIGHT greater than LEFT. Small RIGHT parietal cortical chronic infarct. Tiny chronic lacunar infarct involving the ante rior thalamus. Single punctate focus of hemosiderin within the RIGHT posterior frontal lobe. Mild sma ll vessel changes. Moderate parenchymal volume loss. Normal posterior fossa. Normal vascular flow voids at the skull base. No extra-axial fluid collection s. T2 hyperintense cystic-appearing lesion involving the LEFT infratemporal fossae with bony remodeli ng and expansion of the sphenoid wing and pterygoid. 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 This appears essential ly unchanged since the prior CT from 2007. Normal optic chiasm and pituitary infundibulum. Moderate symmetric atrophy bilateral temporal lobes a nd hippocampal formations. MR/MR head wo con* [id number] IMPRESSION: 1. No evidence of restricted diffusion to suggest acute ischemia. T2 shine thr ough within the bilateral parietal lobes with chronic appearing lacunar infarct s in the parietal white matter. 2. Chronic appearing infarct in the RIGHT parietal cortex posteriorly with sli ght encephalomalacia and gliosis. 3. Mild small vessel changes with moderate parenchymal volume loss. 4. Chronic lacunar infarct in the anterior LEFT thalamus. 5. 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
--- NOTE | 2022-04-25 18:14 | PC.NURSE ---
tolerated mri well today.discharge instructions given and explained to and pt.they verb understanding of instructions discharged at 1800 to exit.
== END 2022-04-25 18:00 | disposition home or self-care (01) ==
LOC: ER 15:52 → MEDSURG 19:06
PROVIDERS: Nurse Practitioner Family; Admitting Provider Internal Medicine; Emergency Provider Emergency Medicine; PCP Internal Medicine; Visit Provider Internal Medicine
DX: R06.00 Dyspnea, unspecified (principal); R29.898 Other symptoms and signs involving the musculoskeletal system; Z79.02 Long term (current) use of antithrombotics/antiplatelets; Z86.73 Personal history of transient ischemic attack (TIA), and cerebral infarction without residual deficits; G20 Parkinson's disease; R00.1 Bradycardia, unspecified; E08.43 Diabetes mellitus due to underlying condition with diabetic autonomic (poly)neuropathy
CPT/HCPCS: 36415; 70450; 70551; 71045; 72148; 80048; 80053; 81003; 83036; 83735; 83880; 84484; 85025; 87426; 93005; 94760; 96360; 96372; 97110; 97161; 99285; G0378; J1650; J7030

== ENCOUNTER 2022-04-29 06:00 | Outpatient (RCR) | payer MEDICARE, OTHER, SELFPAY | END 2022-05-21 23:59 | disposition home or self-care (01) | LOC: SST 06:00 | PROVIDERS: PCP Internal Medicine; Visit Provider Internal Medicine | DX: I69.328 Other speech and language deficits following cerebral infarction (principal); I69.318 Other symptoms and signs involving cognitive functions following cerebral infarction | CPT/HCPCS: 92507 ==

== ENCOUNTER 2022-04-29 06:00 | Outpatient (RCR) | payer MEDICARE, OTHER, SELFPAY | END 2022-05-29 23:59 | disposition home or self-care (01) | LOC: SPO 06:00 | PROVIDERS: PCP Internal Medicine; Referring Provider Internal Medicine; Visit Provider Internal Medicine | DX: I63.133 Cerebral infarction due to embolism of bilateral carotid arteries (principal); G20 Parkinson's disease; R26.89 Other abnormalities of gait and mobility; R53.1 Weakness | CPT/HCPCS: 97110; 97112 ==

== ENCOUNTER → 2022-05-01 12:41 | Outpatient (BNVA) | payer MEDICARE, OTHER, SELFPAY | PROVIDERS: PCP Internal Medicine; Visit Provider Internal Medicine Cardiovascular Disease | DX: Z53.9 Procedure and treatment not carried out, unspecified reason (principal) ==

== ENCOUNTER → 2022-06-19 12:12 | Outpatient (BNVA) | payer MEDICARE, OTHER, SELFPAY | PROVIDERS: PCP Internal Medicine; Visit Provider Internal Medicine | DX: R06.02 Shortness of breath (principal); R00.1 Bradycardia, unspecified; Z86.73 Personal history of transient ischemic attack (TIA), and cerebral infarction without residual deficits | CPT/HCPCS: 99213; 99214 ==

== ENCOUNTER 2022-08-21 09:03 | Outpatient (CLI) | payer MEDICARE, OTHER, SELFPAY ==
--- NOTE | 2022-08-21 08:45 | USCV_ITS ---
Reid Mcbride Age: 77 Gender: M : 1945 Exam Date: 08/21/2022 09:29 Ordering Phys: Rey Joseph M.D ([email or web address]) Technologist: Exam Location: [facility] Indication: chest pain BP: 125 / 70 HR: 61 Rhythm: Sinus Technical Quality: MEASUREMENTS (Male / Female) Normal Values 2D ECHO LV Diastolic Diameter PLAX 3.9 cm 4.2 - 5.9 / 3.9 - 5.3 cm LV Systolic Diameter PLAX 2.2 cm IVS Diastolic Thickness 1.0 cm 0.6 - 1.0 / 0.6 - 0.9 cm IVS Systolic Thickness 1.3 cm LVPW Diastolic Thickness 1.1 cm 0.6 - 1.0 / 0.6 - 0.9 cm LVPW Systolic Thickness 1.2 cm LVOT Diameter 2.0 cm LV Ejection Fraction 2D Teich 74.4 % LA Diameter 3.5 cm Aorta at Sinotubular Diameter 3.2 cm IVC Diameter 1.2 cm M-MODE Aortic Annulus Diameter 4.3 cm LA Ao Ratio MM 0.9 MV E Point Septal Separation 0.7 cm DOPPLER AV Peak Velocity 142.0 cm/s LVOT Peak Velocity 87.0 cm/s AV Area Cont Eq vti 1.8 cm squared AV Area Cont Eq pk 1.9 cm squared MV Area PHT 2.2 cm squared Mitral E to A Ratio 0.7 MV E' Velocity 36.0 cm/s Mitral E to MV E' Ratio 2.2 Mitral E to LV E' Lateral Ratio 8.1 Mitral E to LV E' Septal Ratio 1.3 TR Peak Velocity 221.0 cm/s TR Peak Gradient 19.5 mmHg TV Peak E Velocity 71.0 cm/s Right Atrial Pressure 3.0 mmHg Pulmonary Artery Systolic Pressu 22.5 mmHg RV Acceleration Time 0.1 s FINDINGS Left Ventricle Left ventricle is normal in size. LV systolic function is normal with EF of 55 to 60%. No regional wall motion abnormalities are seen. Grade 1 diastolic dysfunction Right Ventricle Normal in size and function Right Atrium Normal in size Left Atrium Normal in size Mitral Valve Mild mitral annular calcification. Trace mitral regurgitation. Aortic Valve Structurally normal aortic valve. No significant stenosis. Mild aortic regurgitation. Tricuspid Valve Mild tricuspid regurgitation. Pulmonary artery systolic pressure is normal. Pulmonic Valve Not well-visualized. Trace pulmonic regurgitation. Pericardium Normal Aorta Normal in size IVC Appears to be normal CONCLUSIONS LV systolic function normal with EF of 55 to 60% Grade 1 diastolic dysfunction Mild mitral calcification. Trace mitral regurgitation Mild aortic regurgitation Mild tricuspid regurgitation Trace pulmonic regurgitation No comparison studies are available Rey Joseph MD (Electronically Signed) Final Date: 25 August 2022 14:32 S
== END 2022-08-21 09:04 | disposition home or self-care (01) ==
LOC: RAD 09:03
PROVIDERS: PCP Internal Medicine; Visit Provider Internal Medicine
DX: R06.02 Shortness of breath (principal); R07.9 Chest pain, unspecified; I08.3 Combined rheumatic disorders of mitral, aortic and tricuspid valves
CPT/HCPCS: 93306

== ENCOUNTER 2022-09-03 11:20 | Emergency (ER) | payer MEDICARE, OTHER, SELFPAY ==
[2022-09-03 11:47] VITALS: BP 113/68; PULSE 73; RESP 18; TEMP 37.1; O2SAT 95
--- NOTE | 2022-09-03 12:05 | CTR_ITS ---
PROCEDURE INFORMATION: Exam: CT Head Without Contrast Exam date and time: 09/03/2022 12:33 PM Age: 77 years old Clinical indication: Injury or trauma; Blunt trauma (contusions or hematomas); Patient HX: Syncope x today. Fall x today. HX of stroke on 01/21/22 TECHNIQUE: Imaging protocol: Computed tomography of the head without contrast. Radiation optimization: All CT scans at this facility use at least one of these dose optimization techniques: automated exposure control; mA and/or kV adjustment per patient size (includes targeted exams where dose is matched to clinical indication); or iterative reconstruction. COMPARISON: MR head wo con* [id number] 04/25/2022 2:34 PM RADIATION DOSE METRICS: Total DLP (mGy-cm): 1138.6 FINDINGS: Brain: Prominent cortical sulci corresponding to cerebral volume loss. No hemorrhage. Unremarkable white matter. No mass effect. Cerebral ventricles: No ventriculomegaly. Paranasal sinuses: Visualized sinuses are unremarkable. No fluid levels. Mastoid air cells: Visualized mastoid air cells are well aerated. Bones/joints: There is an expansile density noted in the left pterygoid bone extending into the left middle cranial fossa. Comparison to prior examination this finding is stable. No acute fracture. Soft tissues: Unremarkable. CT/CT head wo con* [id number] IMPRESSION: No acute intracranial abnormality. Stable expansile density left pterygoid bone.
--- NOTE | 2022-09-03 12:05 | XRR_ITS ---
PROCEDURE INFORMATION: Exam: XR Chest Exam date and time: 09/03/2022 12:39 PM Age: 77 years old Clinical indication: Cough and dyspnea; Additional info: Dyspnea/cough TECHNIQUE: Imaging protocol: Radiologic exam of the chest. Views: 1 view. COMPARISON: CR XR chest 1V portable [id number] 04/24/2022 3:10 PM FINDINGS: Lungs: Unremarkable. No consolidation. Pleural spaces: Unremarkable. No pleural effusion. No pneumothorax. Heart/Mediastinum: Unremarkable. No cardiomegaly. Bones/joints: Metallic left shoulder arthroplasty is in place in good position. Other findings: Comparison to prior examination similar findings are seen XR/XR chest 1V portable [id number] IMPRESSION: 1. No acute findings. 2. Stable metallic left shoulder arthroplasty
--- NOTE | 2022-09-03 12:29 | ECG_ITS ---
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 Measurements Intervals [place] Rate: 58 P: 31 NV: 201 QRS: 43 QRSD: 93 T: 29 QT: 440 QTc: 435 Interpretive Statements SINUS BRADYCARDIA WITH MARKED SINUS ARRHYTHMIA Compared to ECG 04/24/2022 20:29:32 Ventricular premature complex(es) no longer present Electronically Signed On 09-03-2022 12:50:43 REAMING PRESS OPERATOR by Viki Sharma M.D. [id number]
[2022-09-03 12:32] VITALS: BP 116/77; PULSE 90; RESP 14; O2SAT 97
[2022-09-03 12:34] LABS: Basophils % 0.4 %; Eosinophils # 0.1 10^3/uL (0.0-0.8); Eosinophils % 1.2 %; Hematocrit 47.5 % (42.0-52.0); Hemoglobin 16.5 g/dL (11.7-16.6); Lymphocytes # 2.1 10^3/uL (0.8-4.8); Lymphocytes % 19.3 %; Mean Corpuscular HGB Conc 34.7 g/dL (30.0-36.0); Mean Corpuscular Hemoglobin 30.7 pg (28.0-34.0); Mean Corpuscular Volume 88.3 fl (80-94); Mean Platelet Volume 10.4 fL (7.4-10.4); Monocytes % 9.4 %; Neutrophils % 69.3 %; Nucleated Red Blood Cells % 0 %; Platelet Count 731 10^3/cmm (130-400); Red Blood Count 5.38 10^6/uL (4.1-5.3); Red Cell Distribution Width 13.9 % (12.1-15.1)
[2022-09-03 12:57] LABS: Alanine Aminotransferase 18 U/L (0-41); Albumin Level 3.7 g/dL (3.5-5.2); Alkaline Phosphatase 117 U/L (40-130); Blood Urea Nitrogen 16 mg/dL (8-23); Calcium 9.4 mg/dL (8.5-10.5); Carbon Dioxide 22 mmol/L (22-29); Chloride 103 mmol/L (98-107); Globulin 3.3 g/dL (1.3-4.6); Glucose 128 mg/dL (65-115); Osmolality Calculated 287 mOsm/kg (285-295); Sodium 137 mmol/L (136-145); Total Bilirubin 0.6 mg/dL (0.15-1.2)
[2022-09-03 13:02] LABS: Anion Gap 15.7 (5-19); Aspartate Amino Transferase 23 U/L (0-40); Potassium 3.7 mmol/L (3.5-5.1)
[2022-09-03 13:21] VITALS: BP 115/80; BP 119/68; BP 128/80; PULSE 57; PULSE 67; PULSE 73
--- NOTE | 2022-09-03 13:37 | ED_ITS ---
HPI - Syncope General: Chief Complaint: Syncope Stated Complaint: Major headache, weak, and blurr vision Time Seen by Provider: 09/03/22 12:04 Source: patient Mode of arrival: ambulatory History of Present Illness: 77-year-old male presents to the emergency room after syncopal episode. He was standing outside on some uneven ground states he felt like he was lightheaded and dizzy and then felt like something hit him in the head suddenly and he passed out. There is no visible injury did not strike his head he has a little bit of a frontal headache some blurred vision he is awake and alert and oriented he is able to give a very precise history. Earlier this year he had a CVA for which he was received tPA. MD complaint: collapsed Onset (ago): minute(s) Prodromal symptoms: lightheaded and palpitations Witnessed: Yes - by Bystander Context: other (Standing for prolonged period of time) Injuries sustained associated with event: none Associated symptoms: Reports lightheadedness and nausea; Deny abdominal pain, chest pain, fever(s), headache(s), short of breath, vertigo or weakness Treatments prior to arrival: none Review of Systems Const: Denies: fever(s), chills, fatigue or malaise ENMT: Denies: throat pain, ear or mastoid pain, nasal discharge or nasal congestion Card: Reports: lightheadedness; Denies: chest pain Resp: Denies: dyspnea, productive cough or non-productive cough GI: Reports: nausea; Denies: abdominal pain : Denies: flank pain, dysuria, urinary frequency or urinary urgency Skin/Breast: Denies: rash or pruritus Neuro: Denies: headache(s) or vertigo PFS ED PFSH: Medical History CVA (cerebral vascular accident) Parkinsons disease Surgical History H/O shoulder surgery No pertinent past surgical history Family History Denies family history of Cancer Social History Smoking and tobacco status: never smoked Alcohol intake: never Physical Exam Const: COMMON NORMALS: no acute distress GENERAL APPEARANCE: cooperative a nd comfortable ORIENTATION/CONSCIOUSNESS: Yes awake, Yes oriented to person, Yes oriented to place and Yes oriented to time HENMT: COMMON NORMALS: normocephalic, atraumatic and hearing grossly normal bilaterally HEAD & SCALP: normocephalic and atraumatic Neck/C-Spine: COMMON NORMALS: full ROM, no lymphadenopathy, supple and no JVD Lymph: LYMPHATIC: no lymphadenopathy noted and no lymphedema noted Resp: COMMON NORMALS: normal respiratory effort, No retractions, No use of accessory muscles and clear to auscultation bilaterally AUSCULTATION: clear to auscultation bilaterally Cardio: COMMON NORMALS: no JVD, regular rate, regular rhythm and No murmurs present (Cardio) RATE: regular rate RHYTHM: regular rhythm GI: COMMON NORMALS: Soft to palpation and No hepatosplenomegaly present AUSCULTATION: Yes normoactive bowel sounds PALPATION: Yes Soft to palpation, No Tenderness to palpation present (GI), No Guarding due to palpation present (GI) and Yes No hepatosplenomegaly present Extremity: COMMON NORMALS: normal to inspection, capillary refill normal, no clubbing, cyanosis or edema, no calf tenderness and no pedal edema Neuro: SENSORIUM/ORIENTATION: Yes oriented to person, Yes oriented to place and Yes oriented to time Skin: COMMON NORMALS: no rashes or lesions noted GENERAL SKIN EXAM: no rashes or lesions noted Course Vital Signs: Vital signs: Vital Signs Temperature 98.7 F 09/03/22 11:47 Pulse Rate 57 L 09/03/22 13:21 Respiratory Rate 14 09/03/22 12:32 Blood Pressure 119/68 09/03/22 13:21 Pulse Oximetry 97 09/03/22 12:32 Oxygen Delivery Me thod 09/03/22 12:32 MDM - Syncope Medical Decision Making Labs and imaging reviewed no focal neurologic deficits noted. Patient is feeling much better he is up and active he would prefer to go home. I suspect he had some orthostatic hypotension for standing for period of time he admits also may have been contributed to by the fact he was on uneasy ground and due to his previous stroke he has some residual balance issues. His Parkinson's also likely played a role in this. Patient was bradycardic on arrival here we will set him up for an outpatient 48-hour Holter monitor Medical Records I reviewed the patient's medical records. Lab Data I reviewed the patient's lab results. 09/03/22 12:25 09/03/22 12:25 Radiology Impressions Chest X-Ray 09/03/22 12:05 IMPRESSION: 1. No acute findings. 2. Stable metallic left shoulder arthroplasty Head CT 09/03/22 12:05 IMPRESSION: No acute intracranial abnormality. Stable expansile density left pterygoid bone. Laboratory Results WBC 11.0 10^3/uL (4.0-10.0) H 09/03/22 12:25 RBC 5.38 10^6/uL (4.1-5.3) H 09/03/22 12:25 Hgb 16.5 g/dL (11.7-16.6) 09/03/22 12:25 Hct 47.5 % (42.0-52.0) 09/03/22 12:25 MCV 88.3 fl (80-94) 09/03/22 12:25 MCH 30.7 pg (28.0-34.0) 09/03/22 12:25 MCHC 34.7 g/dL (30.0-36.0) 09/03/22 12:25 RDW 13.9 % (12.1-15.1) 09/03/22 12:25 Plt Count 731 10^3/cmm (130-400) H 09/03/22 12:25 MPV 10.4 fL (7.4-10.4) 09/03/22 12:25 Neut % (Auto) 69.3 % 09/03/22 12:25 Lymph % (Auto) 19.3 % 09/03/22 12:25 Brooks % (Auto) 9.4 % 09/03/22 12:25 Eos % (Auto) 1.2 % 09/03/22 12:25 Baso % (Auto) 0.4 % 09/03/22 12:25 Neut # (Auto) 7.60 10^3/uL (1.8-7.7) 09/03/22 12:25 Lymph # (Auto) 2.1 10^3/uL (0.8-4.8) 09/03/22 12:25 Brooks # (Auto) 1.0 10^3/uL (0.2-0.9) H 09/03/22 12:25 Eos # (Auto) 0.1 10^3/uL (0.0-0.8) 09/03/22 12:25 Baso # (Auto) 0.0 10^3/uL (0.0-0.1) 09/03/22 12:25 Nucleated RBC % (auto) 0 % 09/03/22 12:25 Nucleated RBCs # 0.0 /100WBC 09/03/22 12:25 Sodium 137 mmol/L (136-145) 09/03/22 12:25 Potassium 3.7 mmol/L (3.5-5.1) 09/03/22 12:25 Chloride 103 mmol/L (98-107) 09/03/22 12:25 Carbon Dioxide 22 mmol/L (22-29) 09/03/22 12:25 Anion Gap 15.7 (5-19) 09/03/22 12:25 BUN 16 mg/dL (8-23) 09/03/22 12:25 Creatinine 1.0 mg/dL (0.7-1.2) 09/03/22 12:25 GFR Calculation Not Reportable 09/03/22 12:25 Glucose 128 mg/dL (65-115) H 09/03/22 12:25 Calculated Osmolality 287 mOsm/kg (285-295) 09/03/22 12:25 Calcium 9.4 mg/dL (8.5-10.5) 09/03/22 12:25 Total Bilirubin 0.6 mg/dL (0.15-1.2) 09/03/22 12:25 AST 23 U/L (0-40) 09/03/22 12:25 ALT 18 U/L (0-41) 09/03/22 12:25 Alkaline Phosphatase 117 U/L (40-130) 09/03/22 12:25 Troponin T Baseline 14 ng/L (0-15) 09/03/22 12:25 Troponin T 120 Minute 14.04 ng/L (0-15) 09/03/22 14:22 Delta Troponin T 0.04 ABS# (0-10) 09/03/22 14:22 Total Protein 7.0 g/dL (6.6-8.7) 09/03/22 12:25 Albumin 3.7 g/dL (3.5-5.2) 09/03/22 12:25 Globulin 3.3 g/dL (1.3-4.6) 09/03/22 12:25 Urine Color Yellow (Yellow) 09/03/22 13:21 Urine Appearance Clear (CLEAR) 09/03/22 13:21 Urine pH 8 (5-7) H 09/03/22 13:21 Ur Specific Wolcott 1.010 (1.005-1.030) 09/03/22 13:21 Urine Protein Neg (Negative) 09/03/22 13:21 Urine Glucose (UA) Norm (Normal) 09/03/22 13:21 Urine Ketones Negative (Negative) 09/03/22 13:21 Urine Blood Neg (Negative) 09/03/22 13:21 Urine Nitrate Negative (Negative) 09/03/22 13:21 Urine Bilirubin Neg (Negative) 09/03/22 13:21 Prot Sulfosalicylic Acd Negative (Negative) 09/03/22 13:21 Urine Urobilinogen Neg mg/dL (Negative) 09/03/22 13:21 Ur Leukocyte Esterase Negative (Negative) 09/03/22 13:21 Discharge Plan Discharge Patient Disposition: Home Clinical Impression: Syncope and collapse, Bradycardia Condition: Stable Prescriptions: No Action brimonidine 0.2 % drops 1 drp ophthalmic (eye) BID timolol maleate 0.5 % drops 1 drp ophthalmic (eye) BID Men's Daily 0.4-600 mg-mcg Capsule 1 cap PO QAM risperidone 0.5 mg tablet 0.5 mg PO BEDTIME atorvastatin 40 mg tablet 40 mg PO BEDTIME clopidogrel 75 mg tablet 75 mg PO BEDTIME gabapentin 100 mg capsule 200 mg PO TID@,14,20 carbidopa-levodopa 25-100 mg tablet 1 tab PO TID@,14,20 dutasteride 0.5 mg capsule 0.5 mg PO BEDTIME sertraline 100 mg tablet 100 mg PO DAILY Aspir-81 81 mg Tablet,Delayed Release (Dr/Ec) 81 mg PO DAILY@14 lorazepam 0.5 mg tablet 0.5 mg PO TID@,14,20 Discharge Orders: Discharge ED (Routine); Ordered 09/03/22 Ordered By: Georgi Arthur Referrals: Reid Cabrera DO [Primary Care Provider] - Discharge Diet: Usual diet Discharge Activity: Increase activity as tolerated Patient Instructions: Opioid Safety, Pain Management Activity Restrictions/Additional Instructions: You were seen for syncopal episode. Your labs and CT of your head was negative. Your heart rate was quite slow at times in the emergency room we are going to have you set up for a Holter monitor. Some of this may be related to your Parkinson's. Follow-up with your primary care doctor or return to the emergency room if your symptoms recur. Coding Level of Care Code ED Obstetrician And Gynaecologist for Michaela Alfredo NIH stroke score NIHSS Level Of Consciousness - 1a: 0 Level Of Consciousness Questions - 1b: Both Correct Level Of Consciousness Commands - 1c: Both Correct Best Gaze - 2: Normal Visual Juarez - 3: No Visual Loss Facial Palsy - 4: Normal Motor Arm Right - 5: No Drift Motor Arm Left - 5: No Drift Motor Leg Right - 6: No Drift Motor Leg Left - 6: No Drift Limb Ataxia - 7: Absent Sensory - 8: Normal Best Language - 9: No Aphasia Dysarthia - 10: Normal Extinction And Inattention - 11: 0 Score Total Score: 0
[2022-09-03 13:44] LABS: Add Urine Microscopic? NO; Charge for UA Resulting for Rev
[2022-09-03 13:54] LABS: Glucose Urine UA Norm (Normal); Ketones Urine Negative (Negative); Protein Urine Neg (Negative); Urine Appearance Clear (CLEAR); Urine Color Yellow (Yellow); pH Urine 8 (5-7)
[2022-09-03 13:55] LABS: Bilirubin Urine Neg (Negative); Blood Urine Neg (Negative); Leukocyte Esterase Urine Negative (Negative); Nitrate Urine Negative (Negative); Sulfosalicylic Acid Urine Negative (Negative); Urobilinogen Urine Neg (Negative)
[2022-09-03 14:12] LABS: Troponin(5th) Baseline 14 ng/L (0-15)
[2022-09-03 14:44] LABS: Troponin 5 2HR 14.04 ng/L (0-15)
[2022-09-03 14:45] LABS: Troponin 5 2HR Delta 0.04 ABS# (0-10)
--- NOTE | 2022-09-03 15:49 | ECG_ITS ---
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 Measurements Intervals [place] Rate: 55 P: 19 ME: 203 QRS: 12 QRSD: 90 T: 29 QT: 466 QTc: 449 Interpretive Statements SINUS BRADYCARDIA NONSPECIFIC T-WAVE ABNORMALITY Compared to ECG 09/03/2022 12:29:35 T-wave abnormality now present Sinus arrhythmia no longer present Electronically Signed On 09-03-2022 18:51:52 TYPEWRITER MECHANIC by Viki Sharma M.D. [id number]
--- NOTE | 2022-09-04 14:04 | DCPLANNER ---
Addendum entered by Mayra Manuel 09/19/22 11:08: Patient had a follow up appointment scheduled with heart care - patient did attend appointment Addendum entered by Mayra Manuel 09/05/22 12:19: Patient has a follow up appointment scheduled for Saturday, September 10, 2022 at 11:00. Heart Care will contact patient with appointment information. Original Note: manager quantitative had message to schedule an outpatient 48 hour halter monitor for patient. manager quantitative faxed signed order to heart care. Patients information will be reviewed, clinic will call patient with appointment information.
== END 2022-09-03 16:08 | disposition home or self-care (01) ==
PROVIDERS: Emergency Provider Family Medicine; PCP Internal Medicine
DX: R00.1 Bradycardia, unspecified (principal); R55 Syncope and collapse; I69.398 Other sequelae of cerebral infarction; I69.393 Ataxia following cerebral infarction; G20 Parkinson's disease
CPT/HCPCS: 70450; 71045; 80053; 81003; 84484; 85025; 93005; 99285

== ENCOUNTER 2022-09-06 10:31 | Outpatient (CLI) | payer MEDICARE, OTHER, SELFPAY ==
--- NOTE | 2022-09-06 | ECG_ITS ---
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 Interpretive Statements NAME OF STUDY: LEXISCAN SESTAMIBI STRESS TEST INDICATION: [Chest Pain] Procedure: At the baseline, the blood pressure was 127/66 mmHg with a heart rate of 58 bpm. The electrocardiogram showed normal sinus rhythm, normal axis with normal ST and T's. The Lexiscan was infused over a period of 20 seconds. A total of 0.4 mg of Lexiscan was infused. The stress phase was continued for a total of 5 minutes. Heart rate was at the end of stress phase was 75 bpm and a blood pressure of 108/69 mmHg. The EKG at the peak infusion revealed normal sinus rhythm with no significant ST-T wave changes. Sestamibi was injected 20 seconds after the Lexiscan infusion. Blood pressure at the end of recovery phase was 119/70 mmHg with a heart rate of 71 bpm. Conclusion: 1. Normal EKG response to Lexiscan infusion 2. No Lexiscan induced chest pain or cardiac arrhythmia. 3. Normal blood pressure and heart rate response. 4. Sestamibi/sestamibi perfusion scan pending; see separate report. Electronically Signed On 09-22-2022 13:33:45 ACCOUNTING SUPPORT SPECIALIST by Rey Joseph M.D. [id number]
[2022-09-06 10:45] VITALS: BMI 25.8
--- NOTE | 2022-09-06 10:56 | NMCV_ITS ---
NM manasa perf SPECT r/s* [id number] Reid Mcbride Age: 77 Gender: M : 1945 Exam Date: 09/06/2022 12:02 Ordering Phys: Rey Joseph M.D ([email or web address]) Technologist: LINDSEY Sadler Exam Location: [facility] Indications: CHEST PAIN STRESS TEST Please [facility] IMAGE PROTOCOL Rest/Stress 1 Lexiscan Day Radiopharmaceutical Dose (mCi) Administration Site Administered by Rest: Tc-99m 10.8 IV LINDSEY Greenfield Sestamibi Stress:Tc-99m 32.3 IV LINDSEY [place] Sestamibi Rest: 06-Sep-2022 60 Discovery 630 Stress: 06-Sep-2022 30 Discovery 630 0.4mg Lexiscan. Supine position only as patient was unable to lay prone. SPECT RESULTS Technical Quality: Excellent Raw Data Analysis: Normal Image Corrections: No attenuation or motion correction applied Summed Stress Score: 1 Summed Rest Score: 0 Summed Difference Score: 1 PERFUSION FINDINGS There is a small in size, reversible perfusion defect seen in apical lateral wall. This is consistent with small area of ischemia in left circumflex artery territory. FUNCTIONAL RESULTS (calculated via Gated SPECT) Stress Image LV EF (%): 77 Stress EDV (mL):75 TID: 1 Stress ESV (mL):17 FUNCTIONAL FINDINGS: There is normal left ventricular systolic function. IMPRESSIONS 1. Abnormal myocardial perfusion imaging with small sized area of ischemia in left circumflex artery territory. 2. LV systolic function is normal. Rey Joseph MD (Electronically Signed) Final Date: 09 September 2022 13:20 S
[2022-09-06] MEDS: regadenoson 0.4 Mg/5 ml Syringe IVP (12:31)
[2022-09-06 12:45] VITALS: BP 119/70; PULSE 70
== END 2022-09-06 10:32 | disposition home or self-care (01) ==
LOC: CDL 10:33
PROVIDERS: PCP Internal Medicine; Visit Provider Internal Medicine
DX: R07.9 Chest pain, unspecified (principal); I25.9 Chronic ischemic heart disease, unspecified
CPT/HCPCS: 36415; 78452; 93017; 96374; A9500; J2785

== ENCOUNTER → 2022-09-10 10:37 | Outpatient (BNVA) | payer MEDICARE, OTHER, SELFPAY | PROVIDERS: PCP Internal Medicine; Visit Provider Internal Medicine Cardiovascular Disease | DX: R00.1 Bradycardia, unspecified (principal) | CPT/HCPCS: 93225 ==

== ENCOUNTER 2022-12-13 12:58 | Outpatient (RCR) | payer MEDICARE, OTHER, SELFPAY | END 2022-12-27 23:59 | disposition home or self-care (01) | LOC: SPT 12:58 | PROVIDERS: PCP Internal Medicine; Visit Provider Physician Assistant | DX: Z47.89 Encounter for other orthopedic aftercare (principal) | CPT/HCPCS: 97110; 97162 ==

== ENCOUNTER 2022-12-28 06:00 | Outpatient (RCR) | payer MEDICARE, OTHER, SELFPAY | END 2023-01-26 23:59 | disposition home or self-care (01) | LOC: SPT 06:00 | PROVIDERS: PCP Internal Medicine; Visit Provider Physician Assistant | DX: Z47.89 Encounter for other orthopedic aftercare (principal) | CPT/HCPCS: 97110 ==

== ENCOUNTER → 2023-01-21 11:05 | Outpatient (BNVA) | payer MEDICARE, OTHER, SELFPAY | PROVIDERS: PCP Internal Medicine; Visit Provider Nurse Practitioner Family | DX: R00.1 Bradycardia, unspecified (principal); I49.3 Ventricular premature depolarization | CPT/HCPCS: 93005; 99214 ==

== ENCOUNTER → 2023-02-11 12:48 | Outpatient (BNVA) | payer MEDICARE, OTHER, SELFPAY | PROVIDERS: PCP Internal Medicine; Visit Provider Internal Medicine | DX: R06.09 Other forms of dyspnea (principal); I47.20 Ventricular tachycardia, unspecified | CPT/HCPCS: 99214 ==

== ENCOUNTER 2023-02-19 15:34 | Outpatient (CLI) | payer MEDICARE, OTHER, SELFPAY ==
[2023-02-19 16:01] LABS: Basophils # 0.1 10^3/uL (0.0-0.1); Basophils % 0.6 %; Eosinophils # 0.3 10^3/uL (0.0-0.8); Eosinophils % 3.1 %; Hematocrit 47.7 % (42.0-52.0); Hemoglobin 15.3 g/dL (11.7-16.6); Lymphocytes # 2.1 10^3/uL (0.8-4.8); Lymphocytes % 23.2 %; Mean Corpuscular HGB Conc 32.1 g/dL (30.0-36.0); Mean Corpuscular Hemoglobin 27.9 pg (28.0-34.0); Mean Platelet Volume 10.1 fL (7.4-10.4); Monocytes # 0.7 10^3/uL (0.2-0.9); Monocytes % 8.2 %; Neutrophils # 5.81 10^3/uL (1.8-7.7); Neutrophils % 64.3 %; Nucleated Red Blood Cells % 0 %; Platelet Count 638 10^3/cmm (130-400); Red Blood Count 5.48 10^6/uL (4.1-5.3); Red Cell Distribution Width 14.7 % (12.1-15.1)
[2023-02-19 16:15] LABS: INR 1.21 (0.83-1.21); Prothrombin Time (Patient) 15.7 Seconds (12.0-15.1)
[2023-02-19 16:23] LABS: Anion Gap 12.7 (5-19); Blood Urea Nitrogen 18 mg/dL (8-23); Calcium 8.9 mg/dL (8.5-10.5); Carbon Dioxide 24 mmol/L (22-29); Chloride 103 mmol/L (98-107); Glucose 165 mg/dL (65-115); Osmolality Calculated 288 mOsm/kg (285-295); Potassium 3.7 mmol/L (3.5-5.1); Sodium 136 mmol/L (136-145)
== END 2023-02-19 15:35 | disposition home or self-care (01) ==
LOC: LAB 15:37
PROVIDERS: PCP Internal Medicine; Visit Provider Internal Medicine
DX: R94.39 Abnormal result of other cardiovascular function study (principal); R00.1 Bradycardia, unspecified
CPT/HCPCS: 36415; 80048; 85025; 85610

== ENCOUNTER 2023-02-20 12:47 | Observation (INO) | payer MEDICARE, OTHER, SELFPAY ==
[2023-02-20] VITALS (31 sets, daily range): BP systolic 105–145; BP diastolic 63–87; PULSE 56–67; RESP 6–21; TEMP 36.7; O2SAT 89–94; BMI 26.4
--- NOTE | 2023-02-20 07:30 | XACV_ITS ---
Exam Room: 2 Ht: 173 cm Wt: 79 kg BSA: 1.96 m2 Gender: Male : 1945 Exam Priority: Routine Procedure(s): Procedure Description: Diagnostic procedure Procedure Description: PCI procedure Procedure Description: Drug Eluting Coronary Stent Procedure Description: Miscellaneous Procedure Description: ACT Procedure Description: Coronary Angiography Diagnostic Cath Status: Elective Diagnostic Findings * INDICATION: Dyspnea on exertion/ ventricular tachycardia/ abnormal stress test. * Left Main has no significant disease. * Left Anterior Descending has mid vessel bridging. No significant stenosis. * Right Coronary Artery has no significant disease. * Circumflex artery is a large sized vessel. OM 3 is a medium sized vessel with a significant 90% stenosis. PATRICIA: 3 flow. * Coronary angiography shows co-dominance. PCI Status: Elective Interventional Findings * PROCEDURE DETAIL: Procedure Details: We engaged left main artery with XB 3.5 guide catheter. IV heparin was administered to maintain ACT above 250 S. 0.014 run-through guidewire was used to cross the OM 3 stenosis and was put in distal vessel. We then placed 2.25 x 12 mm resolute John drug-eluting stent. At this time final angiogram was performed that showed excellent stent expansion, PATRICIA-3 flow and no residual stenosis. Guidewire and guide catheter were removed. Patient left the News Anchor in a stable condition. . * Distal Circumflex: 90% stenosis treated with a MDT R JOHN 2.25X12 JERRICA. 0% residual stenosis, PATRICIA: 3 flow. Conclusions 1. 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 2. Distal Circumflex was treated with a Drug Eluting Stent. Recommendations * Dual antiplatelet therapy with aspirin and Plavix for at least 1 year. * High intensity statin therapy. * Outpatient cardiology follow-up in 4-week. Interventional RX Recommendation: PCI w/o planned CABG Diagnostic RX Recommendation: PCI w/o planned CABG Anticoagulation: Heparin Pressures Phase:Rest AO : 135 / 87 ( 110 ) @ 1:12:00 PM 141 / 82 ( 104 ) @ 1:18:00 PM Clinical Evaluation EBL: 5mL-10mL Procedural Details Procedure Consent Obtained. Admit Source: Out Patient. Pre-Procedure Time Out. Identified patient by full name and date of as verbalized by the patient/guarantor. Does the consent match the physician's order: Yes. Accurate & Complete Informed Consent: Yes. Inpatient/Outpatient History & Physical on Chart: Yes. If H&P is completed, is and addenduem needed: No; If yes, is the addendum complete: N/A. Visualize and Verify Site with Patient/Guarantor: N/A. Relevant Radiology Images available: N/A. The risks, benefits, and alternatives of sedation and/or procedure were discussed by physician. The patient agrees to continue. Procedure started. Correct patient, site and procedure confirmed by cath team. PERRLA. Strong, equal hand insurance sales agent bilaterally. Lungs clear x 5 lobes. IV Site on Arrival: 20 gauge in the right anticubital. IV Fluids: 0.9% NaCl at KVO. 0 mL infused prior to biology laboratory assistant. Pre Procedural Pulses: bilateral dorsalis pedis was 1+. Pre Procedural Pulses: bilateral posterior tibial was 1+. Pre Procedural Pulses: bilateral radial was 2+. Oxygen started at 2liters/min via nasal canula. right groin was prepped with chloroprep then draped in the usual sterile fashion. right radial was prepped with chloroprep then draped in the usual sterile fashion. [facility] Clinical Fraility Score: 4: Vulnerable. News Anchor Indications: Chest pain and abnormal stress test. Chest Pain Symptom Assessment: Atypical Angina. Physician notified. Baseline sample Acquired. HR: 58 BPM. Physician arrived. Physician scrubbed in. Immediate Pre-Procedure Time Out. Correct Patient: Yes; Correct Procedure: Yes; Correct Site: Yes; Correct Patient Position: Yes; Correct Supplies: Yes; Dried Flammable Prep: Yes; Blood Products Available: N/A;. Lidocaine 1% infiltrated to the right radial. Arterial access obtained. A 6 ivorian TIG catheter in over wire. Wire out, hand injection through the catheter. Glidewire in through the catherter. Glidewire out. Courgar wire in through catheter. Levels wire out. Exchange wire in. Wire out, hand injection through the catheter. Glidewire in through the catherter. Catheter and wire out. A TR Band was successful obtaining hemostatsis at the Right Radial artery insertion site. Dr Joseph scrubbed out to check on emergency pt. Pt taken off table for emergent case. Vital chart was stopped. Pt brought back to biology laboratory assistant after emergent case. Time out performed since pt returned. Physician arrived. Physician scrubbed in. Lidocaine 1% infiltrated to the right groin. Arterial access obtained with micropuncture set. A 6 ivorian JL4 catheter in over wire. Multiple views taken of left coronary artery. Catheter out. A 6 ivorian JR4 catheter in over wire. Multiple views taken of right coronary artery. Catheter out. 6 ivorian XB 3.5 guide catheter was inserted over the wire. Runthrough guidewire was advanced through the guide catheter to lesion in the distal Circ. Inflation Number : 1 Mino Hector JOHN 2.25X12 JERRICA -Lot Number# [id number] exp date 03/17/24 was prepped and advanced across the Dist CX. The stent was deployed at 12 JAZ for 0:16 seconds. Stent balloon out over wire. Wire out. Guide catheter out. ACT drawn. Results 282 seconds. Therapeutic limits - pre-heparin administration 90-150 seconds and monitoring heparin during a vascular procedure >250 seconds. A Suture was successful obtaining hemostatsis at the Right Femoral artery insertion site. Post Procedure: Pulses reassessed and unchanged. PERRLA. Strong, equal hand insurance sales agent bilaterally. No VTE prophylaxis required. Medication's Wasted: Lidocaine 1% = 1 mL. Medication's Wasted: Heparin = 3000 heparin units. Medication's Wasted: Other = versed 1 mL. Total IV fluids: 34 mL. Post-op diagnosis: severe distal left cx, post pci with one stent. Complications: none. Estimated blood loss: 5mL-10mL. Responsiveness - Normal response to verbal stimuli; alert and oriented, PERRLA. Airway - Unaffected, no intervention required; spontaneous ventilation. Circulation: W/N/L, pulses unchanged. Nausea/Vomiting: No. Procedure completed. Patient transferred by bed to 1st floor. Vital chart was stopped. Access Site Site: Right Radial artery Sheath Size: 6 Fr Hemostasis Method: TR Band Hemostasis Success: Successful Site: Right Femoral artery Sheath Size: 6 Fr Hemostasis Method: Suture Hemostasis Success: Successful Procedure Medications Start: 9:20 AM Stop: 9:20 AM Medication: Versed Amount: 1 mg Route: I.V. Start: 9:20 AM Stop: 9:20 AM Medication: Fentanyl Amount: 50 mcg Route: I.V. Start: 9:28 AM Stop: 9:28 AM Medication: Nitrogylcerin Amount: 200 mcg Route: I.A. Start: 12:04 PM Stop: 12:04 PM Medication: Versed Amount: 1 mg Route: I.V. Start: 12:04 PM Stop: 12:04 PM Medication: Fentanyl Amount: 50 mcg Route: I.V. Start: 12:17 PM Stop: 12:17 PM Medication: Versed Amount: 1 mg Route: I.V. Start: 12:19 PM Stop: 12:19 PM Medication: Heparin Amount: 6000 units Route: I.V. Start: 12:27 PM Stop: 12: PM Medication: Plavix Amount: 600 mg Route: P.O. I, the attending physician, have reviewed and verified all procedure medications. Yes, all medications given per verbal order History/Risk Factors Hypertension: No Dyslipidemia: No Peripheral Arterial Disease (PAD): No Myocardial Infarction (PR): No Obesity: No Tobacco Use: Never Prior Interventions PCI: No CABG: No Valve Surgery: No Report Signatures Finalized by Rey Joseph MD on 03/01/2023 02:34 PM
[2023-02-20] MEDS: diphenhydrAMINE 50 mg Capsule PO (07:40)
--- NOTE | 2023-02-20 09:23 | P.HPUD_ITS ---
Surgery/Procedure H&P Update DATE OF PROCEDURE: February 20, 2023 DATE H&P PERFORMED: 02/11/23 H&P UPDATE INFORMATION: I have reviewed H&P completed within last 30 days, I have examined patient prior to procedure and No changes to prior documentation PRIMARY INDICATION FOR PROCEDURE: Dyspnea on exertion/ ventricular tachycardia/ abnormal stress test PLANNED PROCEDURE: Operation Date: 02/20/23 08:30 Proposed Procedures p [facility] 67248,R94.39(Left) - Rey Joseph M.D Possible percutaneous coronary intervention PATIENT REASSESSED PRIOR TO SEDATION, WITH NO CHANGE NOTED: Yes PHYSICAL EXAM: alert, oriented x 3, clear to auscultation bilaterally and regular rate & rhythm AIRWAY EVAL/ANESTHESIA PLAN: normal airway, ASA IV, Local Anesthesia, Risks, benefits & alternatives of sedation and/or procedure discussed and Patient agrees to continue as planned ADDITIONAL INFORMATION: Moderate sedation
[2023-02-20 15:23] LABS: Partial Thromboplastin Time 151.6 SECONDS (23.9-36.7)
--- NOTE | 2023-02-20 17:38 | PC.NURSE ---
TR-Band is removed at 1735. Pressure is held for 2 minutes dressing is applied.
--- NOTE | 2023-02-20 17:39 | PC.NURSE ---
TR-Band is checked with no hematoma noted. 1ml of air is removed from TR-band at 1450. 2ml's of air is removed at 1509. 2ml's of air is removed at 1553. 2ml's of air is removed at 1620. 2ml's of air removed 1705. TR-Band removed at 1735. Pressure is held for 2 minutes and dressing applied.
[2023-02-20 17:57] LABS: Partial Thromboplastin Time 35.1 SECONDS (23.9-36.7)
[2023-02-20] MEDS: fentaNYL 50 mcg/mL INJ 2mL IVP (18:21)
--- NOTE | 2023-02-20 19:10 | PC.NURSE ---
arterial sheath pull: 50 mg fentanyl given iv push prior to sheath pull.right femoral arterial sheath pulled at 1840.manual pressure held x 20 min.vss through-out procedure.right leg remained warm to touch and with brisk capillary refill.palpable dp pulse noted.no hematoma formation noted.site dressed with 2x2 gauze and secured with biocclusive.pt instructed in activity restrictions s/p arterial sheath pull...and instructed to notify staff for any bleeding,pain,numbness,sob or for any concerns/needs at all.pt verb understanding of instructions.
[2023-02-20] MEDS: risperiDONE 0.25 mg Tablet 0.5 MG PO (19:17)
[2023-02-20] MEDS: carbidopa-levodopa 25-100mg Tablet 1 EACH PO (19:18)
[2023-02-20] MEDS: acetaminophen 325 mg Tablet 650 MG PO (19:18)
[2023-02-20] MEDS: gabapentin 100 mg Capsule 200 MG PO (19:18)
[2023-02-20] MEDS: LORazepam 0.5 mg Tablet PO (19:18)
[2023-02-20] MEDS: atorvastatin 40 mg Tablet PO (19:18)
[2023-02-20] MEDS: clopidogrel 75 mg Tablet PO (19:18)
--- NOTE | 2023-02-20 19:25 | PC.NURSE ---
Patient is s/p [facility] with right femoral access. Dressing in place to site remains c,d,i with no s/s of bleeding or hematoma formation observed. Instructed patient on site care and restrictions. Patient verbalized complete understanding. Spouse at bedside. Will continue to monitor.
[2023-02-21] VITALS: BP 123/70; PULSE 63; RESP 5; O2SAT 90
[2023-02-21 05:01] VITALS: PULSE 64
[2023-02-21 06:15] LABS: Basophils % 0.4 %; Eosinophils # 0.3 10^3/uL (0.0-0.8); Hematocrit 46.3 % (42.0-52.0); Hemoglobin 14.9 g/dL (11.7-16.6); Lymphocytes # 1.7 10^3/uL (0.8-4.8); Lymphocytes % 17.3 %; Mean Corpuscular HGB Conc 32.2 g/dL (30.0-36.0); Mean Corpuscular Hemoglobin 28.1 pg (28.0-34.0); Mean Corpuscular Volume 87.4 fl (80-94); Mean Platelet Volume 10.3 fL (7.4-10.4); Monocytes # 1.1 10^3/uL (0.2-0.9); Monocytes % 10.6 %; Neutrophils # 6.86 10^3/uL (1.8-7.7); Neutrophils % 68.1 %; Nucleated Red Blood Cells % 0 %; Platelet Count 582 10^3/cmm (130-400); Red Cell Distribution Width 14.8 % (12.1-15.1); White Blood Count 10.1 10^3/uL (4.0-10.0)
[2023-02-21 06:38] LABS: Anion Gap 13.8 (5-19); Blood Urea Nitrogen 17 mg/dL (8-23); Calcium 8.3 mg/dL (8.5-10.5); Carbon Dioxide 23 mmol/L (22-29); Chloride 105 mmol/L (98-107); Glucose 93 mg/dL (65-115); Osmolality Calculated 287 mOsm/kg (285-295); Potassium 3.8 mmol/L (3.5-5.1); Sodium 138 mmol/L (136-145)
--- NOTE | 2023-02-21 08:22 | PM.SDS ---
Short Stay Summary Providers Date of Admit/Discharge: 03/01/23 Attending Provider: Rey Joseph M.D Primary Care Provider: Reid Cabrera DO Chief Complaint: R94.39 HPI History of Present Illness Reid Mcbride is a 78 year old male who has been having significant dyspnea on exertion and event monitor showing ventricular tachycardia. Stress test showing ischemia in left circumflex artery territory. Plan for coronary angiogram. Review of Systems Const: Reports: fatigue Card: Reports: palpitations, lightheadedness, pre-syncope and dyspnea on exertion; Denies: chest pain, irregular heart rhythm, swelling of feet/ankles, syncope, orthopnea or leg pain with exertion Resp: Reports: dyspnea; Denies: productive cough or non-productive cough Musc: Denies: neck pain or back pain Neuro: Reports: headache(s); Denies: dizziness Psych: Denies: anxiety, depression, suicidal ideation or homicidal ideation Sachin/Lymph: Reports: easy bruising and easy bleeding Home Meds/Allergies Home Medications and Allergies Home Medications Medication Instructions Recorded Confirmed Type brimonidine 0.2 % eye drops 1 drp ophthalmic (eye) BID 12/07/21 02/27/23 History multivit with minerals-folic 1 cap PO QAM 12/07/21 02/27/23 History acid-lycopene 0.4 mg-600 mcg capsule (Men's Daily) timolol maleate 0.5 % eye drops 1 drp ophthalmic (eye) BID 12/07/21 02/27/23 History risperidone 0.5 mg tablet 0.5 mg PO BEDTIME 01/21/22 02/27/23 History atorvastatin 40 mg tablet 40 mg PO BEDTIME 03/25/22 02/27/23 History carbidopa 25 mg-levodopa 100 mg 1 tab PO TID@08,14,20 03/25/22 02/27/23 History tablet clopidogrel 75 mg tablet 75 mg PO BEDTIME 03/25/22 02/27/23 History dutasteride 0.5 mg capsule 0.5 mg PO BEDTIME 03/25/22 02/27/23 History gabapentin 100 mg capsule 200 mg PO TID@08,14,20 03/25/22 02/27/23 History aspirin 81 mg tablet,delayed 81 mg PO DAILY@14 09/03/22 02/27/23 History release sertraline 100 mg tablet 100 mg PO DAILY 09/03/22 02/27/23 History Allergies Allergy/AdvReac Type Severity Reaction Status Date / Time No Known Allergies Allergy Verified 02/11/23 13:09 PFSH Acute PFSH: Medical History CVA (cerebral vascular accident) Parkinsons disease Surgical History H/O shoulder surgery No pertinent past surgical history Family History Denies family history of Cancer Social History Smoking and tobacco status: never smoked Alcohol intake: never Substance/Drug Use: never Vitals/I&O/Wt Last Vital Signs Temp 98.1 F 02/20/23 07:30 Pulse 64 02/21/23 05:01 Resp 5 L 02/21/23 00:00 BP 123/70 02/21/23 00:00 Pulse Ox 90 02/21/23 00:00 O2 Del Method Room Air 02/20/23 19:12 02/20/23 02/21/23 02/21/23 22:59 06:59 14:59 Intake Total 240 / 240 240 / 480 Output Total 800 / 800 Balance 240 / 240 -560 / -320 Weight last 48 hrs Weight 174 lb Weight 174 lb Physical Exam Narrative: GENERAL: Patient is alert, awake and oriented x3. [] NECK: No jugular vein distension. [] HEENT: No cyanosis. No icterus. No pallor. [] HEART: Regular S1 and S2. No murmur, rub or gallop. [] LUNGS: Clear to auscultate bilaterally. [] CENTRAL NERVOUS SYSTEM: Grossly nonfocal. [] EXTREMITIES: Lower extremities with 1+ edema bilaterally. Pulses palpable in the lower extremities, both dorsalis pedis and posterior tibial. [] Hospital Course Hospital Course Coronary angiogram showed severe OM 3 stenosis. He underwent successful revascularization with JERRICA x1. He was observed overnight and was discharged home in a stable condition on dual antiplatelet therapy. No access site complications SSS Data Data Completed and Pending: Pending at discharge Category Date Time Status [employer] request for service Routin e Exams 02/20/23 07:30 Taken Discharge Plan Discharge Patient Disposition: Home Condition: Stable Prescriptions: Continued lorazepam 0.5 mg tablet 0.5 mg PO TID@08,14,20 Qty: 90 3RF brimonidine 0.2 % drops 1 drp ophthalmic (eye) BID timolol maleate 0.5 % drops 1 drp ophthalmic (eye) BID Men's Daily 0.4-600 mg-mcg Capsule 1 cap PO QAM risperidone 0.5 mg tablet 0.5 mg PO BEDTIME atorvastatin 40 mg tablet 40 mg PO BEDTIME clopidogrel 75 mg tablet 75 mg PO BEDTIME gabapentin 100 mg capsule 200 mg PO TID@,,20 carbidopa-levodopa 25-100 mg tablet 1 tab PO TID@,,20 dutasteride 0.5 mg capsule 0.5 mg PO BEDTIME sertraline 100 mg tablet 100 mg PO DAILY aspirin 81 mg Tablet,Delayed Release (Dr/Ec) 81 mg PO DAILY@14 No Action amoxicillin-pot clavulanate [Augmentin] 500-125 mg tablet 1 tab PO TID Qty: 30 0RF Discharge Orders: Discharge Order (Routine); Ordered 02/21/23 Ordered By: Rey Joseph Referrals: Nhung Sol FNP [Nurse Practitioner] - 03/04/23 9:15 am Discharge Diet: Cardiac Discharge Activity: Increase activity as tolerated Patient Instructions: Heart Catheterization (DC), Opioid Safety, Post Angiogram Home Care Instructions Attestations Medical Necessity Statement*: Care not expected to cross 2 midnights. Time Spent in Patient Care*: less than 30 min Quality Metrics Clinical Quality Measures: [ No reported AMI, CVA or VTE this stay] Coding Level of Care Code Acute Code for Chg Fwd Diagnoses
[2023-02-21] MEDS: carbidopa-levodopa 25-100mg Tablet 1 EACH PO (09:09)
[2023-02-21] MEDS: gabapentin 100 mg Capsule 200 MG PO (09:09)
[2023-02-21] MEDS: sertraline 100 mg Tablet PO (09:10)
[2023-02-21] MEDS: LORazepam 0.5 mg Tablet PO (09:10)
[2023-02-21 10:16] VITALS: BP 120/74; PULSE 72; RESP 18; O2SAT 92
--- NOTE | 2023-02-21 11:21 | PC.NURSE ---
Patient is discharged via a wheelchair to home with his . All discharge instructions were discussed and patient and his verbalized understanding. All questions were answered. Written instructions were given to patient and .
== END 2023-02-21 10:53 | disposition home or self-care (01) ==
LOC: CSU 12:48
PROVIDERS: Admitting Provider Internal Medicine; PCP Internal Medicine; Visit Provider Internal Medicine
DX: I25.10 Atherosclerotic heart disease of native coronary artery without angina pectoris (principal); R94.39 Abnormal result of other cardiovascular function study; I47.20 Ventricular tachycardia, unspecified; Z79.02 Long term (current) use of antithrombotics/antiplatelets; Z79.82 Long term (current) use of aspirin; Z86.73 Personal history of transient ischemic attack (TIA), and cerebral infarction without residual deficits; G20 Parkinson's disease
CPT/HCPCS: 36415; 80048; 85025; 85347; 85730; 93454; 96365; 99152; 99153; C1769; C1874; C1887; C1894; C9600; G0378; J1644; J2250; J3010; J3490; J7030; Q0163; Q9967

== ENCOUNTER → 2023-02-27 09:57 | Outpatient (BNVA) | payer MEDICARE, OTHER, SELFPAY | PROVIDERS: PCP Family Medicine; Visit Provider Family Medicine | DX: J06.9 Acute upper respiratory infection, unspecified (principal); J40 Bronchitis, not specified as acute or chronic | CPT/HCPCS: 87426 ==

== ENCOUNTER → 2023-03-04 09:04 | Outpatient (BNVA) | payer MEDICARE, OTHER, SELFPAY | PROVIDERS: PCP Family Medicine; Visit Provider Nurse Practitioner Family | DX: I25.10 Atherosclerotic heart disease of native coronary artery without angina pectoris (principal); R06.02 Shortness of breath; Z79.82 Long term (current) use of aspirin | CPT/HCPCS: 36415; 80048; 99214 ==

== ENCOUNTER → 2023-05-19 12:39 | Outpatient (BNVA) | payer MEDICARE, OTHER, SELFPAY | PROVIDERS: PCP Family Medicine; Visit Provider Nurse Practitioner Family | DX: I25.10 Atherosclerotic heart disease of native coronary artery without angina pectoris (principal) | CPT/HCPCS: 99213 ==

== ENCOUNTER → 2023-11-24 12:52 | Outpatient (BNVA) | payer MEDICARE, OTHER, SELFPAY | PROVIDERS: PCP Family Medicine; Visit Provider Internal Medicine | DX: R06.09 Other forms of dyspnea (principal); I47.20 Ventricular tachycardia, unspecified; R94.39 Abnormal result of other cardiovascular function study | CPT/HCPCS: 99214 ==

== ENCOUNTER 2023-12-09 13:33 | Outpatient (CLI) | payer MEDICARE, OTHER, SELFPAY | END 2023-12-09 13:34 | disposition home or self-care (01) | LOC: RT 13:34 | PROVIDERS: PCP Family Medicine; Visit Provider Internal Medicine | DX: R06.9 Unspecified abnormalities of breathing (principal) | CPT/HCPCS: 94010; 94726; 94729 ==

== ENCOUNTER → 2024-08-23 13:16 | Outpatient (BNVA) | payer MEDICARE, OTHER, SELFPAY | PROVIDERS: PCP Family Medicine; Visit Provider Internal Medicine | DX: R06.09 Other forms of dyspnea (principal); I47.20 Ventricular tachycardia, unspecified; R94.39 Abnormal result of other cardiovascular function study; I25.10 Atherosclerotic heart disease of native coronary artery without angina pectoris | CPT/HCPCS: 99213 ==

== ENCOUNTER 2025-03-01 13:13 | Outpatient (CLI) | payer MEDICARE, OTHER, SELFPAY ==
[2025-03-01 13:38] VITALS: PULSE 67; RESP 18; O2SAT 93
[2025-03-01] MEDS: albuterol 2.5 mg/3 mL Neb INHALATION (13:38)
--- NOTE | 2025-03-01 14:36 | CT_ITS ---
WS: [id number] CT chest wo con [id number] HISTORY: DYSPNEA ON EXERTION TECHNIQUE: Axial imaging performed through the thorax. Coronal and sagittal reformats are submitted. All CT scans at [facility] use at least one of these dose optimization techniques: automated exposure control; mA and/or kV adjustment per patient size (includes targeted exams where dose is matched to clinical indication); or iterative reconstruction. CONTRAST: None DLP: 412.28 mGy.cm COMPARISON: None available. Lungs and central airway: Well-aerated lungs. Well-circumscribed 5 mm nodule LEFT upper lobe adjacent to the fissure. Additional 4 mm nodule LEFT lower lobe, image 36 of series 5. Partially calcified nodule 5 mm RIGHT lung base. Additional 2 mm nodule along the RIGHT diaphragmatic surface. Subsegmental atelectasis in the anterior LEFT upper lobe. Linear atelectasis LEFT lower lobe. No mass or pneumonia. No endobronchial lesions or bronchiectasis. Pleura: Normal. No pleural effusion. Heart and pericardium: Normal size heart with no pericardial effusion. Mediastinum and sophie: Small mediastinal and hilar lymph nodes. Some of these lymph nodes are calcified. No pathologically enlarged lymph nodes. Vessels: Mild aneurysmal dilatation ascending aorta to 4.2 cm. Descending aorta normal size at 2.6 cm. Mild enlargement of the pulmonary artery. Bovine arch. Chest wall and lower neck: Partial fatty replacement RIGHT subscapularis muscle. This is typically seen with rotator cuff tears. Upper abdomen: No adrenal mass. Visualized liver is negative. Small hiatal hernia. Osseous structures: Increase in thoracic kyphosis. Mild anterior wedging of several midthoracic vertebral bodies. No retropulsion of vertebral body. Bilateral humeral head replacements. CT/CT chest wo con [id number] IMPRESSION: 1. Multiple subcentimeter bilateral pulmonary nodules. Multiple indeterminate pulmonary nodules. The largest one is solid and measures 5 mm. For multiple nodules <6 mm in a patient of unknown risk, with the larges t one being solid, for a low-risk patient, recommend no follow-up. For a high-r isk patient, CT at 12 months is optional with stronger consideration if there i s suspicious nodule morphology and/or upper lobe location. A non-calcified 5 mm solid nodule is indeterminate. 2. No pneumonia or bronchiectasis. 3. Ascending thoracic aortic aneurysm 4.2 cm. Recommend evaluation by chest CT angiogram. 4. Bilateral humeral head replacements.
== END 2025-03-01 13:14 | disposition home or self-care (01) ==
PROVIDERS: PCP Electrodiagnostic Medicine; Visit Provider Electrodiagnostic Medicine
DX: R06.09 Other forms of dyspnea (principal); R91.8 Other nonspecific abnormal finding of lung field; I71.21 Aneurysm of the ascending aorta, without rupture; Z96.612 Presence of left artificial shoulder joint; Z96.611 Presence of right artificial shoulder joint; J98.11 Atelectasis; R59.0 Localized enlarged lymph nodes; I77.89 Other specified disorders of arteries and arterioles; I28.9 Disease of pulmonary vessels, unspecified; R93.7 Abnormal findings on diagnostic imaging of other parts of musculoskeletal system; K44.9 Diaphragmatic hernia without obstruction or gangrene; M40.294 Other kyphosis, thoracic region; M48.54XA Collapsed vertebra, not elsewhere classified, thoracic region, initial encounter for fracture; R94.2 Abnormal results of pulmonary function studies
CPT/HCPCS: 71250; 94060; 94726; 94729; J7613

== ENCOUNTER → 2025-05-23 15:19 | Outpatient (BNVA) | payer MEDICARE, OTHER, SELFPAY | PROVIDERS: PCP Electrodiagnostic Medicine; Visit Provider Internal Medicine | DX: R06.09 Other forms of dyspnea (principal); I47.20 Ventricular tachycardia, unspecified; R94.39 Abnormal result of other cardiovascular function study; I25.10 Atherosclerotic heart disease of native coronary artery without angina pectoris | CPT/HCPCS: 99214 ==

== ENCOUNTER 2025-08-18 11:14 | Emergency (ER) | payer MEDICARE, OTHER, SELFPAY ==
[2025-08-18] VITALS (8 sets, daily range): BP systolic 174–197; BP diastolic 91–110; PULSE 53–75; RESP 16–20; TEMP 36.5; O2SAT 90–96
--- NOTE | 2025-08-18 11:22 | CT_ITS ---
WS: [id number] CTA HEAD AND NECK TECHNIQUE: Contrast enhanced CTA of the head and neck with coronal and sagittal reformatted images and maximum intensity projection (MIP) images. NASCET criteria utilized. CLINICAL INFORMATION: Left hand and arm numbness last known well 730 last night COMPARISON: None. DLP: 489.[address] scans at [facility] use at least one of these dose optimization techniques: automated exposure control; mA and/or kV adjustment per patient size (includes targeted exams where dose is matched to clinical indication); or iterative reconstruction. FINDINGS: RIGHT: RIGHT common carotid artery is patent. Mild atheromatous plaque RIGHT carotid bulb. Tortuous RIGHT cervical ICA at the skull base. Eccentric soft plaque with approximately 50% narrowing RIGHT ICA at the skull base similar but slightly improved compared to previous. This may have represented a dissection on the prior examination from 2021 but has partially recanalized. LEFT: LEFT common carotid artery is patent. Mild atheromatous plaque LEFT carotid bulb. No significant LEFT ICA stenosis. Tortuous LEFT cervical ICA. Mild stenosis LEFT supraclinoid ICA. LEFT dominant vertebral artery. Small but patent RIGHT vertebral artery. Basilar artery is patent. Normal vascularity to the TRANSPORT COMPANY MANAGER territory bilaterally. Persistent RIGHT TRANSPORT COMPANY MANAGER. Normal vascularity to the JULIOC and MCA territories bilaterally. No evidence of proximal flow-limiting stenosis. INTRACRANIAL CTA: CT/CT angio headneck* [id number] IMPRESSION: 1. No evidence of proximal intracranial flow-limiting stenosis. 2. Approximately 50% stenosis RIGHT ICA at the skull base with eccentric soft plaque similar but improved compared to 2021. 3. No significant cervical ICA stenosis.
--- NOTE | 2025-08-18 11:22 | ECG_ITS ---
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 Measurements Intervals [place] Rate: 67 P: 0 AR: 0 QRS: -2 QRSD: 80 T: 26 QT: 400 QTc: 423 Interpretive Statements possible sinus rhythm Heavy baseline artifacts; Need to repeat the study. Electronically Signed On 08-20-2025 14:14:49 MOLD CAR PUSHER by Abiola Florez M.D. [id number] [id number]
--- NOTE | 2025-08-18 11:22 | CT_ITS ---
WS: [id number] CT HEAD TECHNIQUE: Noncontrast CT of the head obtained from the skullbase to the vertex. CLINICAL INFORMATION: Symptoms of acute stroke COMPARISON: 2021 DLP: [address] scans at [facility] use at least one of these dose optimization techniques: automated exposure control; mA and/or kV adjustment per patient size (includes targeted exams where dose is matched to clinical indication); or iterative reconstruction. FINDINGS: No evidence of intracranial hemorrhage or mass effect. Ventricular system and basal cisterns are patent. Moderate small vessel changes with moderate parenchymal volume loss. No extra-axial fluid collections. No evidence of mass or mass effect. Vascular calcification. Chronic infarct RIGHT parietal lobe with encephalomalacia. Stable expansile bony lesion in the LEFT pterygoid extending into the LEFT middle cranial fossa. CT/CT head thrombolytic 90700 IMPRESSION: 1. No evidence of intracranial hemorrhage or mass effect. 2. No acute intracranial findings. Notified Georgi Arthur DO at 08/18/2025 11:53 AM.
[2025-08-18 11:31] LABS: Hematocrit 47.0 % (37-53); Hemoglobin 15.60 g/dL (11.27-16.99); Mean Corpuscular HGB Conc 33.2 g/dL (30-55); Mean Corpuscular Hemoglobin 28.1 pg (27-33); Mean Corpuscular Volume 84.7 fl (82-101); Nucleated Red Blood Cells % 0 %; Platelet Count 835 10^3/cmm (157-399); Red Blood Count 5.55 10^6/uL (3.85-5.65); White Blood Count 12.67 10^3/uL (3.29-11.43)
--- NOTE | 2025-08-18 11:40 | W.ED.NEUROSD ---
HPI - Neuro Symptoms/Deficit General: Chief Complaint: Neuro Symptoms/Deficit Stated Complaint: stroke like symptoms Time Seen by Provider: 08/18/25 11:22 History of Present Illness: 80-year-old male presents emergency room with strokelike symptoms that began when he awoke this morning. His last known well was when he went to bed last night. Patient has a history of previous strokes on the left side. He states he had difficult time moving his hand this morning. Associated symptoms: Deny chest pain Related Data Home Medications ?Medication ?Instructions ?Recorded ?Confirmed multivit with minerals-folic 1 cap PO QAM 12/07/21 08/18/25 acid-lycopene 0.4 mg-600 mcg capsule (Men's Daily) risperidone 0.5 mg tablet 0.5 mg PO BEDTIME 01/21/22 08/18/25 atorvastatin 40 mg tablet 40 mg PO BEDTIME 03/25/22 08/18/25 dutasteride 0.5 mg capsule 0.5 mg PO BEDTIME 03/25/22 08/18/25 aspirin 81 mg tablet,delayed 81 mg PO DAILY@14 09/03/22 08/18/25 release gabapentin 300 mg capsule 300 mg PO BEDTIME 08/18/25 08/18/25 Previous Rx's ?Medication ?Instructions ?Recorded sertraline 100 mg tablet 100 mg PO DAILY #30 tabs 07/07/23 lorazepam 0.5 mg tablet 0.5 mg PO TID@08,14,20 #90 tabs 05/17/25 clopidogrel 75 mg tablet 75 mg PO DAILY #30 tabs 08/18/25 Allergies Allergy/AdvReac Type Severity Reaction Status Date / Time No Known Allergies Allergy Verified 05/23/25 15:34 Review of Systems Const: Denies: fever(s) or chills Card: Denies: chest pain Resp: Denies: dyspnea GI: Denies: abdominal pain : Denies: dysuria, urinary frequency or urinary urgency Musc: Denies: neck pain or back pain Skin/Breast: Denies: rash PFSH ED PFSH: Medical History Atherosclerosis of coronary artery Parkinsons disease CVA (cerebral vascular accident) Surgical History H/O shoulder surgery No pertinent past surgical history Family History Denies family history of Cancer Social History Smoking and tobacco/nicotine status: never used tobacco/nicotine Alcohol intake: never Substance/Drug Use: never NIH stroke score NIHSS: Level Of Consciousness - 1a: 0 Level Of Consciousness Questions - 1b: Both Correct Level Of Consciousness Commands - 1c: Both Correct Best Gaze - 2: Normal Visual Juarez - 3: No Visual Loss Facial Palsy - 4: Normal Motor Arm Right - 5: No Drift Motor Arm Left - 5: Drift Motor Leg Right - 6: No Drift Motor Leg Left - 6: No Drift Limb Ataxia - 7: Present In Two Limbs Sensory - 8: Mild To Moderate Loss Best Language - 9: No Aphasia Dysarthia - 10: Normal Extinction And Inattention - 11: 0 Score: Total Score: 4 Physical Exam Const: COMMON NORMALS: no acute distress GENERAL APPEARANCE: cooperative and comfortable ORIENTATION/CONSCIOUSNESS: Yes awake, Yes oriented to person, Yes oriented to place and Yes oriented to time HENMT: COMMON NORMALS: normocephalic, atraumatic and hearing grossly normal bilaterally HEAD & SCALP: normocephalic and atraumatic Resp: COMMON NORMALS: normal respiratory effort, No retractions, No use of accessory muscles and clear to auscultation bilaterally AUSCULTATION: clear to auscultation bilaterally Cardio: COMMON NORMALS: regular rate, regular rhythm and No murmurs present (Cardio) RATE: regular rate RHYTHM: regular rhythm GI: COMMON NORMALS: Soft to palpation and No hepatosplenomegaly present AUSCULTATION: Yes normoactive bowel sounds PALPATION: Yes Soft to palpation, No Tenderness to palpation present (GI), No Guarding due to palpation present (GI) and Yes No hepatosplenomegaly present Extremity: COMMON NORMALS: normal to inspection, capillary refill normal, no clubbing, cyanosis or edema, no calf tenderness and no pedal edema Neuro: SENSORIUM/ORIENTATION: Yes oriented to person, Yes oriented to place and Yes oriented to time Skin: COMMON NORMALS: no rashes or lesions noted GENERAL SKIN EXAM: no rashes or lesions noted Course Vital Signs: Vital signs: Vital Signs Temperature 97.7 F 08/18/25 11:16 Pulse Rate 57 L 08/18/25 16:09 Respiratory Rate 17 08/18/25 16:09 Blood Pressure 184/98 08/18/25 16:09 Pulse Oximetry 92 08/18/25 16:09 Oxygen Delivery Me thod Room Air 08/18/25 15:32 MDM - Neuro Symptoms/Deficit Medical Decision Making Medical decision making Social determinants: None I reviewed the patient's medical record. I reviewed the patient's current home meds Alternate historians: Family members Differential diagnosis history of CVA, TIA, cervical radiculopathy Lab Review: Labs reviewed as found on the chart Imaging: CT head CTA head and neck both negative for acute findings Assessment of risk: Level of risk: Moderate Hospitalization considerations: Hospitalization considered if acute stroke however symptoms had resolved Reexamination: Repeat exam patient still has pain in his left arm and hand. Function is hand has improved and numbness has resolved the speech is at baseline Assessment and plan: Suspect he had a TIA may have had some recrudescence of his previous stroke symptoms. Also concerning possible cervical radiculopathy. His symptoms at this time are resolved. Add clopidogrel to his antiplatelet therapy. At the time presentation patient is outside the window for any thrombolytics his stroke score is less than 6 CT of his head is negative. Medical Records I reviewed the patient's medical records. Lab Data I reviewed the patient's lab results. 08/18/25 11:25 08/18/25 11:[address] 08/18/25 11:22 IMPRESSION: 1. No evidence of intracranial hemorrhage or mass effect. 2. No acute intracranial findings. Notified Georgi Arthur DO at 08/18/2025 11:53 AM. Head/Neck CTA 08/18/25 11:22 IMPRESSION: 1. No evidence of proximal intracranial flow-limiting stenosis. 2. Approximately 50% stenosis RIGHT ICA at the skull base with eccentric soft plaque similar but improved compared to 2021. 3. No significant cervical ICA stenosis. Wrist X-Ray 08/18/25 15:05 IMPRESSION: No acute abnormality. Laboratory Results WBC 12.67 10^3/uL (3.29-11.43) H 08/18/25 11:25 RBC 5.55 10^6/uL (3.85-5.65) 08/18/25 11:25 Hgb 15.60 g/dL (11.27-16.99) 08/18/25 11:25 Hct 47.0 % (37-53) 08/18/25 11:25 MCV 84.7 fl (82-101) 08/18/25 11:25 MCH 28.1 pg (27-33) 08/18/25 11:25 MCHC 33.2 g/dL (30-55) 08/18/25 11:25 RDW 16.6 % (12.1-15.1) H 08/18/25 11:25 Plt Count 835 10^3/cmm (157-399) H 08/18/25 11:25 MPV 10.0 fL (7.4-10.4) 08/18/25 11:25 Neut % (Auto) 69.9 % 08/18/25 11:25 Lymph % (Auto) 18.5 % 08/18/25 11:25 Mcleod % (Auto) 7.8 % 08/18/25 11:25 Eos % (Auto) 2.7 % 08/18/25 11:25 Baso % (Auto) 0.7 % 08/18/25 11:25 Neut # (Auto) 8.86 10^3/uL (1.8-7.7) H 08/18/25 11:25 Lymph # (Auto) 2.3 10^3/uL (0.8-4.8) 08/18/25 11:25 Mcleod # (Auto) 1.0 10^3/uL (0.2-0.9) H 08/18/25 11:25 Eos # (Auto) 0.3 10^3/uL (0.0-0.8) 08/18/25 11:25 Baso # (Auto) 0.1 10^3/uL (0.0-0.1) 08/18/25 11:25 Nucleated RBC % (auto) 0 % 08/18/25 11:25 Nucleated RBCs # 0.0 /100WBC 08/18/25 11:25 PT 15.00 SECONDS (12.1-14.9) H 08/18/25 11:25 INR 1.10 (0.8-1.2) 08/18/25 11:25 APTT 32.1 SECONDS (23.9-36.7) 08/18/25 11:25 Sodium 139 mmol/L (136-145) 08/18/25 11:25 Potassium 4.2 mmol/L (3.5-5.1) 08/18/25 11:25 Chloride 105 mmol/L (98-107) 08/18/25 11:25 Carbon Dioxide 25 mmol/L (22-29) 08/18/25 11:25 Anion Gap 13.2 (5-19) 08/18/25 11:25 BUN 14 mg/dL (8-23) 08/18/25 11:25 Creatinine 1.0 mg/dL (0.7-1.2) 08/18/25 11:25 GFR Calculation Not Reportable 08/18/25 11:25 Glucose 135 mg/dL (65-115) H 08/18/25 11:25 POC Glucose 116 mg/dL (70-110) H 08/18/25 11:23 Calculated Osmolality 291 mOsm/kg (285-295) 08/18/25 11:25 Calcium 8.8 mg/dL (8.5-10.5) 08/18/25 11:25 Total Bilirubin 0.5 mg/dL (0.15-1.2) 08/18/25 11:25 AST 21 U/L (0-40) 08/18/25 11:25 ALT 15 U/L (0-41) 08/18/25 11:25 Alkaline Phosphatase 111 U/L (40-130) 08/18/25 11:25 Troponin T Baseline 15 ng/L (0-15) 08/18/25 11:23 Troponin T 120 Minute 15.24 ng/L (0-15) H 08/18/25 14:39 Delta Troponin T 0.24 ABS# (0-10) 08/18/25 14:39 Total Protein 6.6 g/dL (6.6-8.7) 08/18/25 11: Albumin 4.0 g/dL (3.5-5.2) 08/18/25 11:25 Globulin 2.6 g/dL (1.3-4.6) 08/18/25 11:25 Urine Color Yellow (Yellow) 08/18/25 12:01 Urine Appearance Clear (CLEAR) 08/18/25 12:01 Urine pH 6.5 (5-7) 08/18/25 12:01 Ur Specific [place] 1.023 (1.005-1.030) 08/18/25 12:01 Urine Protein Negative (Negative) 08/18/25 12:01 Urine Glucose (UA) Negative (Normal) 08/18/25 12:01 Urine Ketones Negative (Negative) 08/18/25 12:01 Urine Blood Negative (Negative) 08/18/25 12:01 Urine Nitrate Negative (Negative) 08/18/25 12:01 Urine Bilirubin Negative (Negative) 08/18/25 12:01 Urine Urobilinogen 0.2 mg/dL (Negative) 08/18/25 12:01 Ur Leukocyte Esterase Negative (Negative) 08/18/25 12:01 Urine RBC 0-2 /hpf (0-2) 08/18/25 12:01 Urine WBC 0-5 /hpf (0-5) 08/18/25 12:01 Ur Squamous Epith Cells 0-5 /hpf (0-5) 08/18/25 12:01 Amorphous Sediment Not Reportable 08/18/25 12:01 Urine Bacteria None seen /hpf (NONE) 08/18/25 12:01 Hyaline Casts 0-4 /lpf H 08/18/25 12:01 Urine Opiates Screen Negative ng/mL (Negative) 08/18/25 12:01 Ur Barbiturates Screen Negative ng/mL (Negative) 08/18/25 12:01 Ur Phencyclidine Scrn Negative ng/mL (Negative) 08/18/25 12:01 Ur Amphetamines Screen Negative ng/mL (Negative) 08/18/25 12:01 U Benzodiazepines Scrn Positive ng/mL (Negative) H 08/18/25 12:01 Urine Cocaine Screen Negative ng/mL (Negative) 08/18/25 12:01 U Marijuana (THC) Screen Negative ng/mL (Negative) 08/18/25 12:01 All radiology interpretation(s) finalized by discharge Discharge Plan Discharge Patient Disposition: Home Clinical Impression: Transient cerebral ischemia, Arm pain, left, Hx of completed stroke, HTN (hypertension) Condition: Stable Prescriptions: New clopidogrel 75 mg tablet 75 mg PO DAILY Qty: 30 0RF No Action sertraline 100 mg tablet 100 mg PO DAILY Qty: 30 11RF lorazepam 0.5 mg tablet 0.5 mg PO TID@08,14,20 Qty: 90 3RF Men's Daily 0.4-600 mg-mcg Capsule 1 cap PO QAM risperidone 0.5 mg tablet 0.5 mg PO BEDTIME atorvastatin 40 mg tablet 40 mg PO BEDTIME dutasteride 0.5 mg capsule 0.5 mg PO BEDTIME aspirin 81 mg Tablet,Delayed Release (Dr/Ec) 81 mg PO DAILY@14 gabapentin 300 mg capsule 300 mg PO BEDTIME Discharge Orders: Discharge ED (Routine); Ordered 08/18/25 Ordered By: Georgi Arthur Referrals: Tae Sommer DO [Primary Care Provider, Family Practice] Discharge Diet: Usual diet Discharge Activity: Increase activity as tolerated Patient Instructions: Opioid Safety, Pain Management, Patient Portal & Rula Instructions Activity Restrictions/Additional Instructions: [facility]. It is very important that you follow up as instructed or that you return to the Emergency Department should you have concerns or if your condition changes or worsens in any way. Emergency department visits are focused on emergent conditions, in some cases you may require further evaluation on an outpatient basis. You were seen in the emergency room with some transient weakness in your arm and your leg CT of your head and neck did not show any new vascular occlusions or new strokes. Your symptoms had resolved while you were here. You also had some chest discomfort while you are here cardiac enzymes and EKG did not show any acute changes. The wrist was x-rayed because your complaining of specific pain in the left wrist that was also normal. Based on some of your symptoms suspect you may have a impingement of a nerve in your neck. You should follow-up with your primary care doctor regarding your blood pressure and neck and arm pain you may need further imaging of the neck. Return if you have further problems. (Please note that included in your discharge packet is information concerning opioid safety and pain management. This information is given to all patients were discharged from the ER regardless of their discharge diagnosis or the medicines they usually take or are prescribed.) Print Language: Gibraltarian Coding Level of Care Code ED Tour Escort for Michaela Alfredo
[2025-08-18 11:54] LABS: INR 1.10 (0.8-1.2); Prothrombin Time 15.00 SECONDS (12.1-14.9)
[2025-08-18 11:55] LABS: Partial Thromboplastin Time 32.1 SECONDS (23.9-36.7)
[2025-08-18 11:58] LABS: Alanine Aminotransferase 15 U/L (0-41); Albumin Level 4.0 g/dL (3.5-5.2); Alkaline Phosphatase 111 U/L (40-130); Anion Gap 13.2 (5-19); Aspartate Amino Transferase 21 U/L (0-40); Blood Urea Nitrogen 14 mg/dL (8-23); Calcium 8.8 mg/dL (8.5-10.5); Carbon Dioxide 25 mmol/L (22-29); Chloride 105 mmol/L (98-107); Globulin 2.6 g/dL (1.3-4.6); Glucose 135 mg/dL (65-115); Osmolality Calculated 291 mOsm/kg (285-295); Potassium 4.2 mmol/L (3.5-5.1); Sodium 139 mmol/L (136-145); Total Protein 6.6 g/dL (6.6-8.7)
[2025-08-18 12:19] LABS: Glucose Urine UA Negative (Normal); Nitrate Urine Negative (Negative); Specific Gravity, Urine 1.023 (1.005-1.030)
[2025-08-18 12:21] LABS: Add Urine Microscopic? YES
[2025-08-18 12:26] LABS: PCP Screen Urine Negative (Negative)
--- NOTE | 2025-08-18 14:06 | ECG_ITS ---
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 Measurements Intervals [place] Rate: 55 P: 3 NC: 150 QRS: -9 QRSD: 121 T: 37 QT: 436 QTc: 418 Interpretive Statements SINUS BRADYCARDIA Heavy baseline artifacts; Need to repeat the study. Electronically Signed On 08-20-2025 14:11:09 RESEARCH TECHNOLOGIST by Abiola Florez M.D. [id number]
[2025-08-18] MEDS: hyDRALAzine 20 mg/mL INJ 1 mL 5 MG IVP (15:01)
--- NOTE | 2025-08-18 15:05 | XR_ITS ---
WS: [id number] XR wrist LT min 3V* [id number] REASON FOR EXAM: pain FINDINGS: No acute fracture. Distal radius and ulna intact. The joint spaces of the wrist are intact except for the scaphoid oh trapezium and trapezium first metacarpal articulations which demonstrate significant osteoarthritis. Normal alignment of the carpal bones. The scaphoid is intact. XR/XR wrist LT min 3V* [id number] IMPRESSION: No acute abnormality.
[2025-08-18 15:12] LABS: Troponin(5th) Baseline 15 ng/L (0-15)
[2025-08-18 15:13] LABS: Troponin 5 2HR 15.24 ng/L (0-15); Troponin 5 2HR Delta 0.24 ABS# (0-10)
--- OUTSIDE RECORDS SUMMARY | 2025-08-18 15:15 | XMS_ITS | Encounter Summary ---
Author Organization [facility] Address [address] [place] [address] Care Team Providers Care Special Warfare Operator Name Role Phone Clayton Miranda MD Primary Care Provider [phone] Encounter Details Date Type Department Care Team (Latest Contact Info) Description 08/09/2003 Outpatient [facility] [address] [place] [address] Deion Natarajan MD NO ADDRESS ON FILE NAUSEA WITH VOMITING (Primary Dx); ANXIETY STATE NOS Social History Tobacco Use Types Packs/Day Years Used Date Smoking Tobacco: Never Assessed Sex and Gender Information Value Date Recorded Sex Assigned at Not on file 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
--- OUTSIDE RECORDS SUMMARY | 2025-08-18 15:15 | XMS_ITS | Encounter Summary ---
Author Organization [facility] Address [address] [place] [address] Care Team Providers Care Health Clinician Name Role Phone Clayton Miranda MD Primary Care Provider [phone] Encounter Details Date Type Department Care Team (Latest Contact Info) Description 01/11/2005 Outpatient [facility] Gastroenterology[address] [place] [phone] Agustin Elliott MD NO ADDRESS ON FILE GI SYSTEM SYMPTOMS OTHER (Primary Dx); INT HEMORRHOID W/O COMPL Social History Tobacco Use Types Packs/Day Years Used Date Smoking Tobacco: Never Assessed Sex and Gender Information Value Date Recorded Sex Assigned at Not on file 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
--- OUTSIDE RECORDS SUMMARY | 2025-08-18 15:15 | XMS_ITS | Encounter Summary ---
Author Organization [facility] Address [address] [place] [address] Care Team Providers Care Forklift Truck Mechanic Name Role Phone Clayton Miranda MD Primary Care Provider Encounter Details Date Type Department Care Team (Latest Contact Info) Description 11/26/1999 Outpatient Historical [facility] Urology- [place] 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
--- OUTSIDE RECORDS SUMMARY | 2025-08-18 15:15 | XMS_ITS | Encounter Summary ---
Author Organization [facility] Address [address] [place] [address] Care Team Providers Care Gasfitter Name Role Phone Clayton Miranda MD Primary Care Provider Encounter Details Date Type Department Care Team (Latest Contact Info) Description 08/05/2001 Outpatient [facility] [address] [place] [address] Deion Natarajan MD NO ADDRESS ON FILE Routine medical exam (Primary Dx) Social History Tobacco Use Types Packs/Day Years Used Date Smoking Tobacco: Never Assessed Sex and Gender Information Value Date Recorded Sex Assigned at Not on file 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
--- OUTSIDE RECORDS SUMMARY | 2025-08-18 15:15 | XMS_ITS | Encounter Summary ---
Author Organization [facility] Address [address] [place] [address] Care Team Providers Care Plant Operator Control Room Operator Name Role Phone Clayton Miranda MD Primary Care Provider Encounter Details Date Type Department Care Team (Late st Contact Info) Description 10/02/2000 Outpatient Historical [facility] Imaging Services-[facility] [place] [address] [place] [address] Social History Tobacco Use Types Packs/Day Years Used Date Smoking Tobacco: Never Assessed Sex and Gender Information Value Date Recorded Sex Assigned at Not on file 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
--- OUTSIDE RECORDS SUMMARY | 2025-08-18 15:15 | XMS_ITS | Encounter Summary ---
Author Organization [facility] Address [address] [place] [address] Care Team Providers Care Registered Travel Nurse Name Role Phone Clayton Miranda MD Primary Care Provider Encounter Details Date Type Department Care Team (Late st Contact Info) Description 10/30/2000 Outpatient Historical [facility] 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
--- OUTSIDE RECORDS SUMMARY | 2025-08-18 15:15 | XMS_ITS | Encounter Summary ---
Author Organization [facility] Address [address] [place] [address] Care Team Providers Care Patent Prosecution Paralegal Name Role Phone Clayton Miranda MD Primary Care Provider [phone] Encounter Details Date Type Department Care Team (Late st Contact Info) Description 03/16/2001 Outpatient Historical [facility] Rheumatology- [facility] [place] [address] [place] [address] Artie Pro DO [address] [facility] [address] [place] [address] Pain in joint, shoulder region (Primary Dx); Other affections of shoulder region, not elsewhere classified Social History Tobacco Use Types Packs/Day Years Used Date Smoking Tobacco: Never Assessed Sex and Gender Information Value Date Recorded Sex Assigned at Not on file 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
--- OUTSIDE RECORDS SUMMARY | 2025-08-18 15:15 | XMS_ITS | Encounter Summary ---
Author Organization [facility] Address [address] [place] [address] Care Team Providers Care Warehouse Distribution Associate Name Role Phone Clayton Miranda MD Primary Care Provider Encounter Details Date Type Department Care Team (Latest Contact Info) Description 10/02/2000 Outpatient [facility] [address] [place] [address] Deion Natarajan MD NO ADDRESS ON FILE Lumbago (Primary Dx); Acute bronchitis Social History Tobacco Use Types Packs/Day Years Used Date Smoking Tobacco: Never Assessed Sex and Gender Information Value Date Recorded Sex Assigned at Not on file 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
--- OUTSIDE RECORDS SUMMARY | 2025-08-18 15:15 | XMS_ITS | Encounter Summary ---
Author Organization [facility] Address [address] [place] [address] Care Team Providers Care Corporate Securities Research Analyst Name Role Phone Clayton Miranda MD Primary Care Provider [phone] Encounter Details Date Type Department Care Team (Latest Contact Info) Description 01/11/2005 Outpatient Historical [facility] Endoscopy [place] [address] [phone] Agustin Elliott MD NO ADDRESS ON FILE IRRITABLE COLON (Primary Dx) Social History Tobacco Use Types Packs/Day Years Used Date Smoking Tobacco: Never Assessed Sex and Gender Information Value Date Recorded Sex Assigned at Not on file 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
--- OUTSIDE RECORDS SUMMARY | 2025-08-18 15:15 | XMS_ITS | Encounter Summary ---
Author Organization [facility] Address [address] [place] [address] Care Team Providers Care Qc Manager Name Role Phone Clayton Miranda MD Primary Care Provider Encounter Details Date Type Department Care Team (Late st Contact Info) Description 10/30/2000 Outpatient Historical [facility] Rheumatology- [facility] [place] [address] [place] [address] Artie Pro, DO [address] [facility] [address] [place] [address] Cervicalgia (Primary Dx); Other affections of shoulder region, not elsewhere classified Social History Tobacco Use Types Packs/Day Years Used Date Smoking Tobacco: Never Assessed Sex and Gender Information Value Date Recorded Sex Assigned at Not on file 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
--- OUTSIDE RECORDS SUMMARY | 2025-08-18 15:15 | XMS_ITS | Encounter Summary ---
Author Organization 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
--- OUTSIDE RECORDS SUMMARY | 2025-08-18 15:15 | XMS_ITS | Encounter Summary ---
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
--- OUTSIDE RECORDS SUMMARY | 2025-08-18 15:15 | XMS_ITS | Clinical Summary ---
Author Organization [facility] Address [address]: Epic [place] [address] Care Team Providers Care Baby Stroller Rental Clerk Name Role Phone Clayton Miranda MD Primary Care Provider [phone] Allergies No known active allergies Medications risperiDONE (RisperDAL) 0.5 mg tablet Take 0.5 mg by mouth 2 times daily. 5 Active dutasteride (AVODART) 0.5 mg Capsule Take 0.5 mg by mouth daily. 5 Active sertraline (ZOLOFT) 50 mg tablet Take 100 mg by mouth daily. 5 Active LORazepam (ATIVAN) 0.5 mg tablet Take 0.5 mg by mouth 3 times daily as needed. Active multivitamin (DAILY-JOSÉ LUIS) tablet Take 1 Tablet by mouth daily. Active gabapentin (NEURONTIN) 100 mg capsule Take 200 mg by mouth 3 times daily. Active clopidogreL 75 mg tablet Take 75 mg by mouth daily. Active atorvastatin 40 mg tablet Take 40 mg by mouth daily at bedtime. Active aspirin 81 mg chewable tablet Take 81 mg by mouth daily. Active brimonidine tartrate (BRIMONIDINE OP) 1 Drop by Ophthalmic route 2 times daily. BOTH EYES Active carbidopa ER 25 mg-levodopa 100 mg tablet,extended release Take 1 Tablet by mouth 3 times daily. Active OTHER Prevagen Active naloxone (NARCAN) 4 mg/spray [place], Non-Aerosol EMERGENCY USE ONLY: Administer 1 spray (4 mg) in one nostril one time. May repeat in alternating nostrils every 2-3 min until responsive or EMS arrives. 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 Shoulder pain 01/10/2014 Syncope and collapse 08/25/2013 S/P shoulder replacement, left 07/1107/22/2013 Anxiety and depression 07/05/2013 DJD (degenerative joint dise ase), multi-articular bilateral hands 11/16/2012 Immunizations Immunization Administration Dates Next Due Zoster Vaccine Live SQ 06/29/2010 Family History Medical History Relation Name Comments Healthy Brother 1 Other Brother 1 passed from Cov id No Known Problems Brother 2 No Known Problems Father Heart Disease Mother Respiratory Disease Mother Aortic dissection Son 1 No Known Problems Son 2 No Known Problems Son 3 Relation Name Status Comments Brother 1 Brother 2 Alive Daughter none Father Mother Sister none Son 1 Alive Son 2 Alive Son 3 Alive Social History Tobacco Use Types Packs/Day Years Used Date Smoking Tobacco: Never Smokeless Tobacco: Never Alcohol Use Standard Drinks/Week Comments No 0 (1 standard drink = 0.6 oz pur e alcohol) Sex and Gender Information Value Date Recorded Sex Assigned at Not on file Legal Sex Male 7:52 AM SET ILLUSTRATOR Gender Identity Not on file Sexual Orientation Not on file Last Filed Vital Signs Vital Sign Reading Time Taken Comments Blood Pressure 122/82 01/23/2023 2:47 PM CDT Pulse 54 11/01/2022 11:14 AM SET ILLUSTRATOR Temperature 36.5 C (97.7 F) 11/01/2022 11:14 AM SET ILLUSTRATOR Respiratory Rate 16 11/01/2022 11:14 AM SET ILLUSTRATOR Oxygen Saturation 91% 11/01/2022 11:14 AM SET ILLUSTRATOR Inhaled Oxygen Concentration - - Weight 78.6 kg (173 lb 3.2 oz) 01/23/2023 2:47 P M CDT Height 172.7 cm (5' 8 ) 01/23/2023 2:47 PM CDT Body Mass Index 26.33 01/23/2023 2:47 PM CDT Plan of Treatment Health Maintenance Due Date Last Done Comments DTAP/TDAP/TD VACCINES (1 - Tdap) 12/31/1962 PNEUMOCOCCAL VACCINE 50+ YEARS (1 of 1 - PCV) 12/31/18 94 ZOSTER VACCINE (2 of 3) 08/24/2010 06/29/2010 RSV VACCINE (60+ or ) (1 - 1-dose 75+ series) 12/31/2018 INFLUENZA VACCINE (#1) 2025 Medical Devices Implanted Type Area Pnp Device Identifier Shelf Expiration Date Model / Serial / Lot Humeral Head Implanted:Qty: 1 on 07/22/2013 by Roberto Sanderson MD Bone Left: Shoulder 04/29/2021 / 0 / [id number] Screw Aequalis Rvrs Strl 7.0mm [id number] - [id number] Implanted:Qty: 1 on 10/31/2022 by Orlando Miranda III, MD at [facility] Screw Right: Shoulder [employer] 05/21/2027 [id number] / / [id number] Screw Glenoid Baseplate 5x38mm [id number] - [id number] Implanted:Qty: 1 on 10/31/2022 by Orlando Miranda III, MD at [facility] Screw Right: Shoulder [employer] 10/31/2023 [id number] / / [id number] Screw Glenoid Baseplate 5x42mm [id number] - [id number] Implanted:Qty: 1 on 10/31/2022 by Orlando Miranda III, MD at [facility] Screw Right: Shoulder [employer] 10/31/2023 [id number] / / [id number] Stem Hum Global Ap Fix 5247-72-842-Ol d - [id number] Implanted:Qty: 1 on 07/22/2013 by Roberto Sanderson MD Shoulder Left: Shoulder [employer] 06/29/2023 0 / / [id number] Stem Hum Global Ap Pc Sz14 1130-14-200 - [id number] Implanted:Qty: 1 on 07/22/2013 by Roberto Sanderson MD Shoulder Left: Shoulder [employer] 10/30/2022 0 / / [id number] Augment Wedge Glenoid Baseplate Full 29mm [id number] - [id number] Implanted:Qty: 1 on 10/31/2022 by Orlando Miranda III, MD at [facility] Shoulder Right: Shoulder [employer] 04/16/2027 [id number] / / [id number] Size 50 Screw Implanted:Qty: 1 on 10/31/2022 by Orlando Miranda III, MD at [facility] Right: Shoulder 10/31/2023 TORNIER-DW J350 / / [id number] 39meccentric:+ 3mm Implanted:Qty: 1 on 10/31/2022 by Orlando Miranda III, MD at [facility] Right: Shoulder MIGUELITO-TO RNIER-DWJ1 [id number] / / [id number] 3+ Long Humeral Stem Implanted:Qty: 1 on 10/31/2022 by Orlando Miranda III, MD at [facility] Right: Shoulder MIGUELITO TORNIER-DW X3PL / / [id number] Ve 10 Degree Reversed Insert Implanted:Qty: 1 on 10/31/2022 by Orlando Miranda III, MD at [facility] Right: Shoulder [employer]DW T2396 / / [id number] Insurance MEDICARE PART A AND B [facility] [place] [place] [address] RX [employer] Medicare Part D Care Teams Baby Stroller Rental Clerk Relationship Specialty Start Date End Date Clayton Miranda MD [address] [place] [address] PCP - General Family Practice 07/05/13
--- OUTSIDE RECORDS SUMMARY | 2025-08-18 15:15 | XMS_ITS | Encounter Summary ---
Author Organization [facility] Address [address] [place] [address] Care Team Providers Care Pharmacovigilance Safety Expert Name Role Phone Clayton Miranda MD Primary Care Provider Encounter Details Date Type Department Care Team (Late st Contact Info) Description 01/24/2014 Ancillary Orders [facility] Orthopedics - [facility] [address] [place] [address] Roberto Sanderson MD NO ADDRESS ON FILE Social History Tobacco Use Types Packs/Day Years Used Date Smoking Tobacco: Never Smokeless Tobacco: Never Alcohol Use Standard Drinks/Week Comments No 0 (1 standard drink = 0.6 oz pur e alcohol) Sex and Gender Information Value Date Recorded Sex Assigned at Not on file 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
--- OUTSIDE RECORDS SUMMARY | 2025-08-18 15:15 | XMS_ITS | Encounter Summary ---
Author Organization [facility] Address [address] [place] [address] Care Team Providers Care Ios Architect Name Role Phone Clayton Miranda MD Primary Care Provider Encounter Details Date Type Department Care Team (Latest Contact Info) Description 04/04/2000 Outpatient Historical [facility] Ray Ann Jr., MD [address] [place] [id number] Hematuria (Primary Dx); Tick-borne fever Social History Tobacco Use Types Packs/Day Years Used Date Smoking Tobacco: Never Assessed Sex and Gender Information Value Date Recorded Sex Assigned at Not on file Legal Sex Male 3:11 AM DIRECTOR VALIDATION Gender Identity Not on file Sexual Orientation Not on file documented as of this encounter Plan of Treatment Not on file documented as of this encounter Visit Diagnoses Diagnosis Hematuria- Primary Tick-borne fever documented in this encounter Care Teams Ios Architect Relationship Specialty Start Date End Date Clayton Miranda MD [address] [place] [address] PCP - General Family Practice 07/05/13 documented as of this encounter
--- OUTSIDE RECORDS SUMMARY | 2025-08-18 15:15 | XMS_ITS | Clinical Summary ---
Author Organization [facility] Address [address] [place] [address] Care Team Providers Care Hot Mill Operator Name Role Phone Clayton Miranda MD Primary Care Provider [phone] Allergies No known active allergies Medications LORazepam (ATIVAN) 0.5 mg tablet Take 0.5 mg by mouth every 6 hours as needed for Anxiety. Active multivitamin (DAILY-JOSÉ LUIS) tablet Take 1 Tab by mouth daily. Active AVODART 0.5 mg Capsule 01/25/2014 Active temazepam (RESTORIL) 15 mg capsule 12/30/2013 Active NAPROXEN SODIUM (ALEVE ORAL) Take by mouth. As needed Active risperiDONE (RISPERDAL) 1 mg tablet 09/11/2015 Active dutasteride (AVODART) 0.5 mg Capsule 09/11/2015 Active sertraline (ZOLOFT) 100 mg tablet 08/19/2015 Active Active Problems Problem Noted Date Diagnosed Date Shoulder pain 01/10/2014 Syncope and collapse 08/25/2013 S/P shoulder replacement, left 07/1107/22/2013 Depression 07/05/2013 DJD (degenerative joint dise ase), multi-articular bilateral hands 11/16/2012 Immunizations Immunization Administration Dates Next Due Zoster Vaccine Live SQ 06/29/2010 Family History Medical History Relation Name Comments Healthy Brother Healthy Father Heart Disease Mother Respiratory Disease Mother Relation Name Status Comments Brother Father Mother Social History Tobacco Use Types Packs/Day Years Used Date Smoking Tobacco: Never Smokeless Tobacco: Never Alcohol Use Standard Drinks/Week Comments No 0 (1 standard drink = 0.6 oz pur e alcohol) Sex and Gender Information Value Date Recorded Sex Assigned at Not on file Legal Sex Male 3:11 AM 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 Gender Identity Not on file Sexual Orientation Not on file Occupation Industry Job Start Date Job End Date Not on file Not on file Not on file Not on file Last Filed Vital Signs Vital Sign Reading Time Taken Comments Blood Pressure 119/82 10/20/2019 12:42 PM 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 Pulse 101 10/20/2019 12:42 PM 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 Temperature 35.5 C (95.9 F) 02/01/2014 1:15 PM CDT Respiratory Rate 16 02/01/2014 12:30 PM CDT Oxygen Saturation 97% 02/01/2014 1:15 PM CDT Inhaled Oxygen Concentration - - Weight 74.8 kg (165 lb) 10/20/2019 12:42 PM 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 Height 172.7 cm (5' 8 ) 10/20/2019 12:42 PM 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 Body Mass Index 25.09 10/20/2019 12:42 PM 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 Plan of Treatment Health Maintenance Due Date Last Done Comments DTAP/TDAP/TD VACCINES (1 - Tdap) 12/31/1962 PNEUMOCOCCAL VACCINE 50+ YEARS (1 of 1 - PCV) 12/31/18 94 ZOSTER VACCINE (2 of 3) 08/24/2010 06/29/2010 RSV VACCINE (60+ or ) (1 - 1-dose 75+ series) 12/31/2018 INFLUENZA VACCINE (#1) 2025 COLORECTAL SCREENING Discontinued 01/11/2005 Colorectal Cancer Screening Discontinued FIT-DNA Q 3 years Discontinued FIT/FOBT Q 1 year Discontinued Flex Sig/CT Colonography Q 5 years Discontinued Medical Devices Implanted Type Area Devops Engineer Device Identifier Shelf Expiration Date Model / Serial / Lot Humeral Head Implanted:Qty: 1 on 07/22/2013 by Roberto Sanderson MD at [facility] Bone Left: Shoulder [employer] 04/29/2021 / 1130-56-5 20 / [id number] Stem Hum Global Ap Fix 5804-40-708-[id number] - [id number] Implanted:Qty: 1 on 07/22/2013 by Roberto Sanderson MD at [facility] Shoulder Left: Shoulder [employer] 06/29/2023 1130-02-0 / / [id number] Stem Hum Global Ap Pc Sz14 1130-14-200 - [id number] Implanted:Qty: 1 on 07/22/2013 by Roberto Sanderson MD at [facility] [place] [facility] Shoulder Left: Shoulder [employer] 10/30/2022 1130-14-2 00 / / [id number] Insurance [facility] Advance Directives For more information, please contact: [phone] * Full Code (Latest Code Status on File) Date Activated Date Inactivated Comments 02/01/2014 10:42 AM 02/01/2014 3:42 PM * Full Code Date Activated Date Inactivated Comments 08/25/2013 8:37 AM 08/25/2013 2:48 PM * Full Code Date Activated Date Inactivated Comments 07/22/2013 11:38 AM 07/23/2013 2:52 PM * Full Code Date Activated Date Inactivated Comments 07/22/2013 7:14 AM 07/22/2013 11:38 AM * Full Code Date Activated Date Inactivated Comments 07/22/2013 6:25 AM 07/22/2013 7:14 AM Care Teams Hot Mill Operator Relationship Specialty Start Date End Date Clayton Miranda MD [address] [place] [address] PCP - General Family Practice 07/05/13
--- OUTSIDE RECORDS SUMMARY | 2025-08-18 15:15 | XMS_ITS | Encounter Summary ---
Author Organization [facility] Address [address] [place] [address] Care Team Providers Care Fern Picker Name Role Phone Clayton Miranda MD Primary Care Provider Encounter Details Date Type Department Care Team (Late st Contact Info) Description 11/20/2000 Outpatient Historical [facility] Rheumatology- [facility] [place] [address] [place] [address] Artie Pro DO [address] [facility] [address] [place] [address] Cervical spondylosis (Primary Dx); Other affections of shoulder region, not elsewhere classified Social History Tobacco Use Types Packs/Day Years Used Date Smoking Tobacco: Never Assessed Sex and Gender Information Value Date Recorded Sex Assigned at Not on file Legal Sex 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
--- OUTSIDE RECORDS SUMMARY | 2025-08-18 15:15 | XMS_ITS | Encounter Summary ---
Author Organization [facility] Address [address] [place] [address] Care Team Providers Care Molding Room Supervisor Name Role Phone Clayton Miranda MD Primary Care Provider [phone] Encounter Details Date Type Department Care Team (Late st Contact Info) Description 05/03/2016 Ancillary Orders [facility] Admitting [address] [place] [address] Gage Arreola, MICHAEL [address] [place] [address] Bilateral foot pain (Primary Dx); Sinus tarsitis, left; Sinus tarsitis, right; Dorsal pain Social History Tobacco Use Types Packs/Day Years Used Date Smoking Tobacco: Never Smokeless Tobacco: Never Alcohol Use Standard Drinks/Week Comments No 0 (1 standard drink = 0.6 oz pur e alcohol) Sex and Gender Information Value Date Recorded Sex Assigned at Not on file 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 No acute injury to the bony right or left foot. [id number] Narrative 05/03/2016 11:49 AM CDT Exam: XR FOOT 3+ VW BILAT Date/Time of Exam: 05/03/2016 10:34 AM Reason For Exam: Bilateral foot pain, Bilateral foot pain, Sinus tarsitis, left, Sinus tarsitis, right, Dorsal pain. Findings: AP, lateral and oblique projections of the right and left foot demonstrates no evidence of fracture. Tarsal and metatarsal bones appear to be normal. Rays of the foot are likewise unremarkable. There are no radiopaque soft tissue foreign bodies. Bony bridging is not identified. Plantar calcaneal spurs are not apparent. Gage Arreola DP DIAGNOSTIC IMAGING ORDERABLE S Final Result documented in this encounter Visit Diagnoses Diagnosis Bilateral foot pain- Primary Pain in limb Sinus tarsitis, left Sinus tarsitis, right Dorsal pain Pain in thoracic spine Bilateral foot pain Pain in limb Sinus tarsitis, left Sinus tarsitis, right Dorsal pain Pain in thoracic spine documented in this encounter Care Teams Molding Room Supervisor Relationship Specialty Start Date End Date Clayton Miranda MD [address] [place] [address] PCP - General Family Practice 07/05/13 documented as of this encounter
== END 2025-08-18 16:10 | disposition home or self-care (01) ==
PROVIDERS: Emergency Medicine; Emergency Provider Family Medicine; PCP Electrodiagnostic Medicine
DX: G45.9 Transient cerebral ischemic attack, unspecified (principal); M79.602 Pain in left arm; I10 Essential (primary) hypertension; Z86.73 Personal history of transient ischemic attack (TIA), and cerebral infarction without residual deficits; Z79.82 Long term (current) use of aspirin
CPT/HCPCS: 36415; 36416; 70450; 70496; 70498; 73110; 80053; 80306; 81001; 82962; 84484; 85025; 85610; 85730; 93005; 96374; 99285; J0360